=== PATIENT | female | born 1960 | race Caucasian/White ===

== ENCOUNTER 2020-07-06 07:39 | Outpatient (REF) | payer BC, SELFPAY ==
[2020-07-06 08:40] LABS: MANUAL DIFF FLAG NO
[2020-07-06 08:46] LABS: Glucose Urine UA NEG (NEG); Leukocyte Esterase Urine 1+ (NEG); Nitrite Urine NEG (NEG); PH 5.5 (5.0-8.0); Specific Gravity - Urine >= 1.030 (1.005-1.025); UACC Culture Trigger YES; Urine Blood 1+ (NEG); Urine Ketones NEG (NEG); Urine Protein NEG (NEG-TRACE)
[2020-07-06 08:48] LABS: Basophils Absolute Auto 0.1 X10*3/uL (0.0-0.2); Eosinophils Absolute Auto 0.2 X10*3/uL (0.0-0.4); Hematocrit 39.7 % (37-47); Hemoglobin 12.3 g/dl (12.0-16.0); Imm Gran Abs Auto 0.03 X10*3/uL (0.00-0.03); Imm Gran Pct Auto 0.3 % (0.0-0.4); Lymphocytes Absolute Auto 2.7 X10*3/uL (1.2-4.9); Mean Corpuscular Hemoglobin 25.3 pg (27.0-33.0); Mean Corpuscular Volume 81.7 fL (80-98); Mean Platelet Volume 10.1 fL (9.4-12.3); Monocytes Absolute Auto 0.6 X10*3/uL (0.1-1.2); Monocytes Percent Auto 6.8 % (2-11); Neutrophils Absolute Auto 5.1 X10*3/uL (2.0-8.3); Neutrophils Percent Auto 58.9 % (45-73); Platelet Count 430 X10*3/uL (160-400); Red Blood Count 4.86 X10*6/uL (4.20-5.50); Red Cell Distribution Width 16.9 % (11.0-16.0); White Blood Count 8.7 X10*3/uL (4.8-10.8)
[2020-07-06 08:50] LABS: Appearance Urine CLOUDY; Color Urine YELLOW
[2020-07-06 08:55] LABS: Calcium Oxalate Crystals Urine 3+ /LPF; Mucus Urine 1+ /LPF; Squamous Epithelial Cell Urine 1+ /LPF; UACC CULT YES
[2020-07-06 09:18] LABS: Alanine Aminotransferase 15 U/L (0-31); Albumin Level 4.4 g/dL (3.5-5.0); Alkaline Phosphatase 96 U/L (39-117); Anion Gap 16 (12-20); Aspartate Amino Transferase 15 U/L (5-31); Bilirubin Total 0.5 mg/dL (0.0-1.0); Blood Urea Nitrogen 18 mg/dL (9-16); Calcium 9.8 mg/dL (8.4-10.2); Carbon Dioxide 23 mmol/L (22-29); Chloride 108 mmol/L (96-108); Cholesterol 189 mg/dL; Estimated Glomerular Filt Rate > 60; Glucose Fasting 134 mg/dL (60-99); HDL Cholesterol 65 mg/dL; LDL Cholesterol Calculated 103 mg/dl; Potassium 4.8 mmol/L (3.3-5.1); Sodium 142 mmol/L (135-145); Total Protein 7.5 g/dL (6.5-8.0); Triglycerides 107 mg/dL
[2020-07-06 09:36] LABS: Estimated Average Glucose 120 mg/dL; Hemoglobin A1c % 5.8 %
[2020-07-06 09:43] LABS: Free T4 (Free Thyroxine) 1.02 ng/dL (0.71-1.85); Thyroid Stimulating Hormone 0.82 uIU/mL (0.32-4.0); Vitamin D 25-OH Total 16.7 ng/mL (>30)
== END 2020-07-06 07:40 | disposition home or self-care (01) ==
LOC: HO.LAB 07:39
PROVIDERS: PCP Internal Medicine; Visit Provider Internal Medicine
DX: I10 Essential (primary) hypertension (principal); E78.00 Pure hypercholesterolemia, unspecified; R73.01 Impaired fasting glucose; E03.9 Hypothyroidism, unspecified; E66.9 Obesity, unspecified; E55.9 Vitamin D deficiency, unspecified
CPT/HCPCS: 36415; 80053; 80061; 81001; 82306; 83036; 84439; 84443; 85025; 87086

== ENCOUNTER 2020-08-24 14:44 | Outpatient (REF) | payer BC, SELFPAY ==
--- NOTE | ~2020-08-24 | XR_ITS ---
EXAMINATION: XR CERVICAL SPINE CLINICAL INFORMATION: Neck pain COMPARISON: Previous x-ray February 2019 TECHNIQUE: 3 views of the cervical spine were obtained. FINDINGS: There is mild anterior subluxation of C3 with respect to C4 measuring 3 mm. This is unchanged. Bone alignment is otherwise normal. No fracture or dislocation is seen. There is evidence of degenerative spondylosis from C3-C4 to C6-C7. There is disc space narrowing from C4-C5 to C6-C7. There is right-sided facet arthritis at C3-C4. Prevertebral soft tissues are normal. XR/XR cervical spine 3V IMPRESSION: Degenerative changes.
== END 2020-08-24 14:45 | disposition home or self-care (01) ==
LOC: HO.XRAY 14:44
PROVIDERS: PCP Internal Medicine; Visit Provider Nurse Practitioner Family
DX: M54.2 Cervicalgia (principal)
CPT/HCPCS: 72040

== ENCOUNTER → 2020-09-11 08:23 | Outpatient (BNVA) | payer BC, SELFPAY | PROVIDERS: PCP Internal Medicine; Visit Provider Nurse Practitioner Family ==

== ENCOUNTER 2020-11-18 10:50 | Outpatient (REF) | payer BC, SELFPAY ==
[2020-11-18 13:51] LABS: MANUAL DIFF FLAG NO
[2020-11-18 13:57] LABS: Basophils Absolute Auto 0.1 X10*3/uL (0.0-0.2); Basophils Percent Auto 0.8 % (0-2); Eosinophils Absolute Auto 0.1 X10*3/uL (0.0-0.4); Eosinophils Percent Auto 1.5 % (0-4); Hematocrit 39.4 % (37-47); Hemoglobin 11.8 g/dl (12.0-16.0); Imm Gran Abs Auto 0.03 X10*3/uL (0.00-0.03); Imm Gran Pct Auto 0.3 % (0.0-0.4); Lymphocytes Absolute Auto 1.2 X10*3/uL (1.2-4.9); Lymphocytes Percent Auto 13.4 % (20-40); Mean Corpuscular HGB Conc 29.9 g/dl (31.0-35.0); Mean Corpuscular Hemoglobin 26.2 pg (27.0-33.0); Mean Corpuscular Volume 87.4 fL (80-98); Monocytes Absolute Auto 0.8 X10*3/uL (0.1-1.2); Monocytes Percent Auto 8.4 % (2-11); Neutrophils Percent Auto 75.6 % (45-73); Platelet Count 648 X10*3/uL (160-400); Red Blood Count 4.51 X10*6/uL (4.20-5.50); Red Cell Distribution Width 17.2 % (11.0-16.0); White Blood Count 9.2 X10*3/uL (4.8-10.8)
[2020-11-18 14:30] LABS: Thyroid Stimulating Hormone 1.48 uIU/mL (0.32-4.0)
[2020-11-21 18:21] LABS: Transglutaminase IgA 3 U/mL
[2020-11-24 11:01] LABS: Endomysial IgA Antibody Negative (Negative)
== END 2020-11-18 10:51 | disposition home or self-care (01) ==
LOC: HO.LAB 10:50
PROVIDERS: PCP Internal Medicine; Visit Provider Physician Assistant
DX: Z01.818 Encounter for other preprocedural examination (principal); K90.0 Celiac disease; R19.7 Diarrhea, unspecified; R74.01 Elevation of levels of liver transaminase levels
CPT/HCPCS: 36415; 83516; 84443; 85025; 86255; 86256

== ENCOUNTER → 2020-12-24 15:23 | Outpatient (BNVA) | payer BC, SELFPAY | PROVIDERS: PCP Internal Medicine; Visit Provider Nurse Practitioner Family ==

== ENCOUNTER 2021-01-06 13:34 | Outpatient (REF) | payer BC, SELFPAY ==
--- NOTE | ~2021-01-06 | MR_ITS ---
MR CERVICAL SPINE WITHOUT CONTRAST CLINICAL INFORMATION: Cervical disc degeneration. COMPARISON: Cervical spine radiographs 02/12/2019 and cervical spine MRI 03/30/2012 TECHNIQUE: MRI of the cervical spine was obtained using routine sequences without contrast. FINDINGS: Straightening of the cervical lordosis. Mild anterior subluxation of C3 on C4. Mild retrosubluxation of C4 on C5, C5 on C6, and C6 on C7. Progressive severe disc volume loss at C4-C5, C5-C6, and C6-C7. Progressive severe disc volume loss at T1-T2. There is no bone marrow edema. There are no acute fractures. Cervical arterial flow voids are maintained. There are no significant extraspinal soft tissue findings. There is no cord signal abnormality. C2-C3: Uncovertebral joint spurring and facet arthropathy result in similar mild bilateral foraminal encroachment. No central canal stenosis. C3-C4: Mild anterior subluxation. Disc osteophyte mildly narrows the central canal. Advanced uncovertebral joint hypertrophy and hypertrophic facet arthropathy result in worsening moderate bilateral foraminal stenosis. C4-C5: Disc osteophyte and ligamentum flavum thickening result in progressive mild to moderate central canal stenosis. Advanced uncovertebral joint hypertrophy and hypertrophic facet arthropathy result in similar severe bilateral foraminal stenosis. C5-C6: Disc osteophyte and ligamentum flavum thickening result in worsening mild to moderate central canal stenosis. Uncovertebral joint hypertrophy and advanced facet arthropathy result in similar severe bilateral foraminal stenosis. C6-C7: Disc osteophyte mildly narrows the central canal. Advanced uncovertebral joint hypertrophy and hypertrophic facet arthropathy result in severe bilateral foraminal stenosis. C7-T1: Uncovertebral joint spurring and facet arthropathy result in progressive moderate to severe left-sided foraminal stenosis. MR/MR cervical spine wo con IMPRESSION: Spondylitic changes result in worsening mild to moderate central canal stenosis at the C4-C5 and C5-C6 levels. Spondylitic changes result in similar severe bilateral foraminal stenosis at C4-C5, C5-C6, and C6-C7 and progressive moderate to severe left-sided foraminal stenosis at C7-T1 and moderate bilateral foraminal stenosis at C3-C4.
== END 2021-01-06 13:35 | disposition home or self-care (01) ==
LOC: HO.MRI 13:34
PROVIDERS: PCP Internal Medicine; Visit Provider Nurse Practitioner Family
DX: M50.30 Other cervical disc degeneration, unspecified cervical region (principal)
CPT/HCPCS: 72141

== ENCOUNTER 2021-01-12 06:57 | Day surgery (SDC) | payer BC, SELFPAY ==
[2021-01-06 16:36] VITALS: BMI 27.4
[2021-01-12] MEDS: Lactated Ringers 1,000 ML 50 ML IVCONT (07:15)
[2021-01-12] MEDS: Ampicillin Sodium 2 GM in 0.9 % Sodium Chloride 100 ML IV (07:20)
--- NOTE | 2021-01-12 07:27 | HO.ANESPROP2 ---
FORMERLY [facility], 1928–1983 Active Problems Active Problems: All Active Problems (Updated 01/06/21 @ 16:34 by Mercedes Mcdowell, RN) Cervicalgia (Acute) Spondylosis of lumbar region without myelopathy or radiculopathy (Acute) Celiac disease (Acute) Encounter for screening colonoscopy (Acute) Degenerative disc disease, cervical (Acute) Overweight (BMI 25.0-29.9) (Acute) Reactive depression (Acute) Anxiety (Acute) Primary osteoarthritis of right knee (Acute) Insomnia (Acute) Migraine (Acute) Dystonia (Acute) Lumbar degenerative disc disease (Acute) Impaired fasting glucose (Acute) Colon cancer screening (Acute) Cervical spondylosis (Acute) Vitamin D deficiency (Acute) Acquired hypothyroidism (Acute) Pure hypercholesterolemia (Acute) Benign essential hypertension (Acute) Past Medical History Medical History Acquired hypothyroidism Anxiety Arthritis Benign essential hypertension Celiac disease Cervical spondylosis Colon cancer screening Dystonia Hypothyroidism Impaired fasting glucose Insomnia Lumbar degenerative disc disease Migraine Overweight (BMI 25.0-29.9) PONV (postoperative nausea and vomiting) Primary osteoarthritis of right knee Pure hypercholesterolemia Reactive depression Vitamin D deficiency Functional capacity: independent ambulation Patient : No Family History Family History Father Cancer Mother CRD (chronic renal disease) CVD (cardiovascular disease) Myocardial infarction Sister Sarcoma Sister Melanoma Surgical History Surgical History H/O colonoscopy H/O esophagogastroduodenoscopy History of arthroplasty of left knee History of hand surgery History of lumbar surgery History of Problems with Anesthesia: No Social History Social History Alcohol intake: current Alcohol intake frequency: does not drink Patient Tobacco Use Status: Never used Tobacco Are you DNR?: No Advance Directives: No Advance Directives Information Provided: No Advance Directives on File: No Current occupational status: employed Meds Allergies Allergy/AdvReac Type Severity Reaction Status Date / Time No Known Allergies Allergy Verified 11/18/20 10:55 [No Known Allergies*] Active Medications: Current Medications Generic Name Dose Route Start Last Admin Trade Name Freq PRN Reason Stop Dose Admin Ampicillin Sodium 2 gm/ Sodium 100 mls @ 100 mls/hr 08/31/21 08:00 01/12/21 07:20 Chloride IV 01/12/21 08:59 100 mls/hr ONCE ONE Administration Home Medications Medication Instructions Recorded Confirmed Last Taken Type diclofenac sodium 75 mg 75 mg PO BID PRN 08/07/20 01/06/21 Unknown History tablet,delayed release gabapentin 300 mg capsule 600 mg PO BEDTIME cap 08/07/20 01/06/21 Unknown History pravastatin 40 mg tablet 40 mg PO DAILY 08/07/20 01/06/21 Unknown History topiramate 25 mg tablet 25 mg PO BEDTIME 08/07/20 01/06/21 Unknown History Exam Exam Date and Time: January 12, 2021 0727 Height,Weight and Vital Signs: Height 5 ft 4 in Weight 72.575 kg Airway Mallampati Class: II TM Dist: >3cm Neck ROM: Full Heart: RRR Lungs: CTA Assessment and Plan Final Anesthetic Review History of Problems with Anesthesia: No
[2021-01-12 07:29] VITALS: BP 137/80; PULSE 83; RESP 16; TEMP 36.3; O2SAT 98
--- NOTE | 2021-01-12 07:42 | MHC.SHP ---
Pre-Procedural Eval Section A Date of Service: 01/12/21 The patient is an INPATIENT: No The History & Physical has been completed within 30 days and I have reviewed it.: No Section B Chief Complaint: Screening, Celiac Disease Details of Present Illness: Colon cancer screening, celiac disease Relevant Family History (Specify if Yes): No Relevant Social History: None Present Medications: see Short Stay Collaborative assessment Medical History: Significant History (Acquired hypothyroidism Anxiety Benign essential hypertension Celiac disease Cervical spondylosis Colon cancer screening Dystonia Impaired fasting glucose Insomnia Lumbar degenerative disc disease Migraine Overweight (BMI 25.0-29.9) Primary osteoarthritis of right knee Pure hypercholesterolemia Reac) History of Previous Operations: Relevant previous surgery/procedure and date(s) (H/O colonoscopy H/O esophagogastroduodenoscopy History of arthroplasty of left knee History of hand surgery History of lumbar surgery) Allergies: Allergies Allergy/AdvReac Type Severity Reaction Status Date / Time No Known Allergies Allergy Verified 11/18/20 10:55 [No Known Allergies*] Review of Systems Sugical H&P ROS: Negative: Constitution, Cardiovascular and Respiratory and Yes, Specify: Gastrointestinal (bloating, intermittent diarrhea) Exam Surgical H&P Exam: Normal: Heart, Normal: Lungs, Normal: Extremities and Normal: Abdomen Plan Diagnosis/Plan: Unchanged I have reviewed the history and physical and performed a pertinent physical examination on my patient. No changes have occurred unless specified.
--- NOTE | 2021-01-12 07:44 | P.BOP_ITS ---
Brief Operative Note Date of Service: 01/12/21 Pre-op diagnosis: Colon cancer screening, Celiac disease Post-op diagnosis: other (Hiatal hernia, esophagitis, gastritis celiac disease, colon polyp, diverticulosis, hemorrhoids) Procedure: FLEXIBLE TRANSORAL UPPER GASTROINTESTINAL ENDOSCOPY WITH BIOPSIES AND COLONOSCOPY TILL CECUM WITH BIOPSIES UPPER ENDOSCOPY Consent: Indications for the procedure and potential complications of bleeding, perforation, reaction to medications and missed diagnosis were discussed with the patient and informed consent was obtained. Instrument: Olympus GIF H 190 mid size upper endoscope Monitoring: Vital signs and clinical assessment, continuous EKG monitoring, Pulse oximetry, Carbon Dioxide monitoring and blood pressure monitoring were done throughout the procedure. Procedure: The patient was placed in the left lateral decubitis position and pre-procedure medications were administered and a bite block was placed. The endoscope was inserted into the mouth and advanced under direct vision to the third part of duodenum. A careful inspection was made as the upper endoscope was withdrawn including a retroflexed examination of the proximal stomach; Findings and interventions are described below. Findings: Larynx: Normal Esophagus: GE junction at 34 cms, small hiatal hernia 34 to 36 cms. Focal esophagitis with 1 cms chronic appearing erosion at GE junction.. Stomach: Mild gastric erythema. Biopsies were obtained. Grade 3 flap valve on retroflexed examination of the cardia. Duodenum: Normal bulb and descending duodenum. Biopsies were obtained from 3rd part of duodenum to FU on celiac sprue. Intervention: Biopsies as noted above COLONOSCOPY PROCEDURE NOTE Consent: Indications for the procedure and potential complications of bleeding, perforation, reaction to medications and missed diagnosis were discussed with the patient and informed consent was obtained. Instrument: Olympus PCF H 190 L variable stiffness pediatric colonoscope Monitoring: Vital signs and clinical assessment, intermittent blood pressure monitoring, continuous EKG monitoring, Pulse oximetry and Carbon Dioxide monitoring were done throughout the procedure. Colon withdrawl time was 17 minutes. Procedure: The patient was placed in the left lateral decubitis position and pre-procedure medications were administered. After a digital rectal examination of the ano-rectum, the video colonoscope was inserted into the rectum and advanced through the colon to the cecum. The colonoscope was slowly withdrawn in a retrograde panoramic fashion and the colon mucosa was carefully examined including a retroflexed view of the rectum. Findings and interventions are described below. Procedure Difficulty: Colon was long and tortuous and there was some loop formation - no manuvers were required Findings: Terminal Ileum: Not evaluated Cecum: Normal Ascending Colon: Normal Transverse Colon: Normal Descending Colon: Normal Sigmoid Colon: A 6-7 mm diminutive appearing polyp at 20 cms removed with a cold bx. Moderate diverticulosis Rectum: Normal Ano-rectum: Moderate internal hemorrhoids Colon preparation: Good after some irrigation Impression and Post Procedure Diagnosis: Endoscopy Findings: ESOPHAGUS: Small hiatal hernia. Focal esophagitis with 1 cms chronic appearing erosion at GE junction.. STOMACH: Antral gastritis DUODENUM: Normal - biopsied to follow up on celiac sprue. Colonoscopy Findings: One small polyp removed. Random biopsies were obtained from the colon to check for microscopic colitis. Moderate diverticulosis seen in the sigmoid colon Moderate hemorrhoids on retroflexed exam. Plan: Await pathology results Patient has an appointment on 02/04/21 in the GI Clinic with TRISTIN Burgos. Repeat Colonoscopy interval based on path results - in 5 years if polyp is adenomatous and 10 years if polyps are hyperplastic. (adult colonoscopy for future colonoscopies) Above findings were reviewed with the patient and GERD, colon polyps and diverticulosis handouts were given in the discharge area Surgeon: Romie Trujillo MD Anesthesia: MAC (Dr Whalen) Was an Carburetor Expert used for this Procedure?: Yes Carburetor Expert: Trevon Xavier Estimated blood loss (mL): 0 Pathology: other ( A- SMALL BOWEL BXS. F/U CELIAC DISEASE. B- GASTRIC ANTRUM BXS. R/O H. PYLORI C- RANDOM COLON BXS R/O MICROSCOPIC COLITIS D- SIGMOID POLYP) Condition: stable Disposition: PACU
--- NOTE | 2021-01-12 08:06 | W.PM.OPN ---
Operative Note Operative Note Date of Service: 01/12/21 Narrative: Brief Operative Note Date of Service:?01/12/21 Pre-op diagnosis:?Colon cancer screening, Celiac disease Post-op diagnosis:?other (Hiatal hernia, esophagitis, gastritis celiac disease, colon polyp, diverticulosis, hemorrhoids) Procedure:? FLEXIBLE TRANSORAL UPPER GASTROINTESTINAL ENDOSCOPY WITH BIOPSIES AND COLONOSCOPY TILL CECUM WITH BIOPSIES UPPER ENDOSCOPY Consent:?Indications for the procedure and potential complications of bleeding, perforation, reaction to medications and missed diagnosis were discussed with the patient and informed consent was obtained. Instrument:?Olympus GIF H 190 mid size upper endoscope Monitoring: Vital signs and clinical assessment, continuous EKG monitoring, Pulse oximetry, Carbon Dioxide monitoring and blood pressure monitoring were done throughout the procedure. Procedure:?The patient was placed in the left lateral decubitis position and pre-procedure medications were administered and a bite block was placed. The endoscope was inserted into the mouth and advanced under direct vision to the third part of duodenum. A careful inspection was made as the upper endoscope was withdrawn including a retroflexed examination of the proximal stomach; Findings and interventions are described below. Findings: Larynx:??Normal Esophagus:?GE junction at 34 cms, small hiatal hernia 34 to 36 cms.? Focal esophagitis with 1 cms chronic appearing erosion at GE junction.. Stomach:?Mild gastric erythema. Biopsies were obtained. Grade 3 flap valve on retroflexed examination of the cardia. Duodenum:?Normal bulb and descending duodenum.? Biopsies were obtained from 3rd part of duodenum to FU on celiac sprue. Intervention:?Biopsies as noted above COLONOSCOPY PROCEDURE NOTE Consent:?Indications for the procedure and potential complications of bleeding, perforation, reaction to medications and missed diagnosis were discussed with the patient and informed consent was obtained. Instrument:?Olympus PCF H 190 L variable stiffness pediatric colonoscope Monitoring:?Vital signs and clinical assessment, intermittent blood pressure monitoring, continuous EKG monitoring, Pulse oximetry and Carbon Dioxide monitoring were done throughout the procedure. Colon withdrawl time was 17 minutes. Procedure:?The patient was placed in the left lateral decubitis position and pre-procedure medications were administered. After a digital rectal examination of the ano-rectum, the video colonoscope was inserted into the rectum and advanced through the colon to the cecum. The colonoscope was slowly withdrawn in a retrograde panoramic fashion and the colon mucosa was carefully examined including a retroflexed view of the rectum. Findings and interventions are described below. Procedure Difficulty:??Colon was long and tortuous and there was some loop formation - no manuvers were required Findings: Terminal Ileum: Not evaluated Cecum:? Normal Ascending Colon:??Normal Transverse Colon:??Normal Descending Colon:? Normal Sigmoid Colon:??A 6-7 mm diminutive appearing polyp at 20 cms removed with a cold bx. Moderate diverticulosis Rectum:??Normal Ano-rectum:??Moderate internal hemorrhoids Colon preparation:? Good after some irrigation Impression and Post Procedure Diagnosis: Endoscopy Findings: ESOPHAGUS:? Small hiatal hernia.? Focal esophagitis with 1 cms chronic appearing erosion at GE junction.. STOMACH: Antral gastritis DUODENUM: Normal - biopsied to follow up on celiac sprue. Colonoscopy Findings: One small polyp removed. Random biopsies were obtained from the colon to check for microscopic colitis. Moderate diverticulosis seen in the sigmoid colon Moderate hemorrhoids on retroflexed exam. Plan: Await pathology results Patient has an appointment on 02/04/21 in the GI Clinic with TRISTIN Burgos. Repeat Colonoscopy interval based on path results - in 5 years if polyp is adenomatous and 10 years if polyps are hyperplastic. (adult colonoscopy for future colonoscopies) Above findings were reviewed with the patient and GERD, colon polyps and diverticulosis handouts were given in the discharge area Surgeon:?Romie Trujillo MD Anesthesia:?MAC (Dr Whalen) Was an Calculus Tutor used for this Procedure?:?Yes Calculus Tutor:?Trevon Xavier Estimated blood loss (mL):?0 Pathology:?other ( A-? SMALL BOWEL BXS. ? F/U CELIAC DISEASE.? B- GASTRIC ANTRUM BXS.? R/O H. PYLORI? C- RANDOM COLON BXS ? R/O MICROSCOPIC COLITIS? D- SIGMOID POLYP) Condition:?stable Disposition:?PACU
[2021-01-12 09:02] VITALS: BP 130/105; PULSE 79; RESP 16; TEMP 36.1; O2SAT 98
[2021-01-12 09:17] VITALS: BP 131/79; PULSE 73; RESP 16; O2SAT 99
[2021-01-12 09:32] VITALS: BP 125/69; PULSE 73; RESP 16; TEMP 36.4; O2SAT 98
--- NOTE | 2021-01-12 13:21 | HO.POSTANES ---
Post Anesthesia Evaluation Post Anesthesia Evaluation Vital Signs: Vital Signs Temp Pulse Resp BP Pulse Ox 01/12/21 09:32 97.5 F 73 16 125/69 98 01/12/21 09:17 73 16 131/79 99 01/12/21 09:02 97.0 F 79 16 130/105 H 98 01/12/21 07:29 97.4 F 83 16 137/80 98 Anesthesia: Monitored Mental Status: Awake Pain Control: Satisfactory Nausea/Vomiting: None Hydration: Adequate Anesthesia-Related Issues: No Anes. Related Issues
== END 2021-01-12 09:50 | disposition home or self-care (01) ==
PROVIDERS: PCP Internal Medicine; Visit Provider Internal Medicine Gastroenterology
PROC: (CPT 45380; principal; 2021-01-12 08:10)
DX: Z12.11 Encounter for screening for malignant neoplasm of colon (principal); K63.5 Polyp of colon; K57.30 Diverticulosis of large intestine without perforation or abscess without bleeding; K64.8 Other hemorrhoids; K56.2 Volvulus; K20.90 Esophagitis, unspecified without bleeding; K29.70 Gastritis, unspecified, without bleeding; K44.9 Diaphragmatic hernia without obstruction or gangrene; K90.0 Celiac disease; I10 Essential (primary) hypertension
CPT/HCPCS: 45380; 43239; 88305; 88342; J0290

== ENCOUNTER 2021-01-25 07:31 | Outpatient (REF) | payer BC, SELFPAY ==
[2021-01-25 09:11] LABS: Alanine Aminotransferase 13 U/L (0-31); Albumin Level 4.1 g/dL (3.5-5.0); Alkaline Phosphatase 82 U/L (39-117); Anion Gap 14 (12-20); Aspartate Amino Transferase 13 U/L (5-31); Bilirubin Total 0.3 mg/dL (0.0-1.0); Blood Urea Nitrogen 13 mg/dL (9-16); Calcium 9.9 mg/dL (8.4-10.2); Carbon Dioxide 21 mmol/L (22-29); Chloride 112 mmol/L (96-108); Cholesterol 200 mg/dL; Estimated Glomerular Filt Rate > 60; Glucose Fasting 121 mg/dL (60-99); HDL Cholesterol 59 mg/dL; LDL Cholesterol Calculated 124 mg/dl; Potassium 4.7 mmol/L (3.3-5.1); Sodium 142 mmol/L (135-145); Total Protein 7.2 g/dL (6.5-8.0); Triglycerides 87 mg/dL
[2021-01-25 09:19] LABS: Free T4 (Free Thyroxine) 1.03 ng/dL (0.71-1.85); Thyroid Stimulating Hormone 0.18 uIU/mL (0.32-4.0); Vitamin D 25-OH Total 20.6 ng/mL (>30)
== END 2021-01-25 07:32 | disposition home or self-care (01) ==
LOC: HO.LAB 07:31
PROVIDERS: PCP Internal Medicine; Visit Provider Internal Medicine
DX: E55.9 Vitamin D deficiency, unspecified (principal); E03.9 Hypothyroidism, unspecified; E66.3 Overweight; E78.00 Pure hypercholesterolemia, unspecified; R73.01 Impaired fasting glucose; I10 Essential (primary) hypertension
CPT/HCPCS: 36415; 80053; 80061; 82306; 84439; 84443

== ENCOUNTER → 2021-02-04 08:44 | Outpatient (BNVA) | payer BC, SELFPAY | PROVIDERS: PCP Internal Medicine; Referring Provider Internal Medicine; Visit Provider Physician Assistant ==

== ENCOUNTER 2021-02-05 09:25 | Outpatient (REF) | payer BC, SELFPAY ==
[2021-02-05 10:01] LABS: MANUAL DIFF FLAG NO
[2021-02-05 10:10] LABS: Basophils Absolute Auto 0.1 X10*3/uL (0.0-0.2); Basophils Percent Auto 1.1 % (0-2); Eosinophils Absolute Auto 0.2 X10*3/uL (0.0-0.4); Eosinophils Percent Auto 2.6 % (0-4); Hematocrit 39.1 % (37-47); Imm Gran Abs Auto 0.02 X10*3/uL (0.00-0.03); Imm Gran Pct Auto 0.3 % (0.0-0.4); Lymphocytes Absolute Auto 1.8 X10*3/uL (1.2-4.9); Mean Corpuscular HGB Conc 30.7 g/dl (31.0-35.0); Mean Corpuscular Hemoglobin 25.4 pg (27.0-33.0); Mean Corpuscular Volume 82.7 fL (80-98); Mean Platelet Volume 9.8 fL (9.4-12.3); Monocytes Absolute Auto 0.6 X10*3/uL (0.1-1.2); Monocytes Percent Auto 9.3 % (2-11); Neutrophils Absolute Auto 3.9 X10*3/uL (2.0-8.3); Neutrophils Percent Auto 59.7 % (45-73); Platelet Count 446 X10*3/uL (160-400); Red Blood Count 4.73 X10*6/uL (4.20-5.50); Red Cell Distribution Width 15.9 % (11.0-16.0); White Blood Count 6.6 X10*3/uL (4.8-10.8)
== END 2021-02-05 09:26 | disposition home or self-care (01) ==
LOC: HO.LAB 09:25
PROVIDERS: PCP Internal Medicine; Visit Provider Internal Medicine
DX: D47.3 Essential (hemorrhagic) thrombocythemia (principal)
CPT/HCPCS: 36415; 85025

== ENCOUNTER 2021-02-24 06:19 | Outpatient (REF) | payer BC, SELFPAY ==
--- NOTE | ~2021-02-24 | FL_ITS ---
EXAMINATION: XR FLUOROSCOPY WITH IMAGES CLINICAL INFORMATION: Neck pain. COMPARISON: MRI of the cervical spine dated 01/06/2021 and cervical spine radiographs dated 08/24/2020. TECHNIQUE: Fluoroscopy performed by Dr. Louis. Fluoroscopy time: 1.9 minutes DAP: 1.79 Gycm2 Images: 3 FL/FL guidance in treatment room FINDINGS/IMPRESSION: Fluoroscopy was performed for procedural guidance. Please refer to the procedure report for more detailed findings.
== END 2021-02-24 06:20 | disposition home or self-care (01) ==
LOC: HO.RADIR 06:19
PROVIDERS: Visit Provider Internal Medicine
DX: M47.812 Spondylosis without myelopathy or radiculopathy, cervical region (principal); I10 Essential (primary) hypertension; E03.9 Hypothyroidism, unspecified; E78.00 Pure hypercholesterolemia, unspecified; E55.9 Vitamin D deficiency, unspecified; Z79.899 Other long term (current) drug therapy
CPT/HCPCS: 64490; 64491; Q9967

== ENCOUNTER → 2021-03-05 09:24 | Outpatient (BNVA) | payer BC, SELFPAY | PROVIDERS: PCP Internal Medicine; Visit Provider Internal Medicine ==

== ENCOUNTER 2021-03-31 06:36 | Outpatient (REF) | payer BC, SELFPAY ==
--- NOTE | ~2021-03-31 | FL_ITS ---
EXAMINATION: XR FLUOROSCOPY WITH IMAGES CLINICAL INFORMATION: Neck pain COMPARISON: Previous exam February 2021 TECHNIQUE: Fluoroscopy performed by Dr. Orosco Fluoroscopy time: 0.7 minutes DAP: 1.5 Gycm2 Images: 2 FINDINGS: Images demonstrate needle placement adjacent to the right lateral cervical spine. FL/FL guidance in treatment room IMPRESSION: Fluoroscopy guidance for pain management procedure.
== END 2021-03-31 06:37 | disposition home or self-care (01) ==
LOC: HO.RADIR 06:36
PROVIDERS: Visit Provider Internal Medicine
DX: M47.812 Spondylosis without myelopathy or radiculopathy, cervical region (principal); Z79.899 Other long term (current) drug therapy
CPT/HCPCS: 64633; 64634

== ENCOUNTER → 2021-04-28 09:53 | Outpatient (BNVA) | payer BC, SELFPAY | PROVIDERS: PCP Internal Medicine; Visit Provider Nurse Practitioner Family ==

== ENCOUNTER 2021-05-12 07:59 | Outpatient (REF) | payer BC, SELFPAY ==
--- NOTE | ~2021-05-12 | FL_ITS ---
EXAMINATION: XR FLUOROSCOPY WITH IMAGES CLINICAL INFORMATION: M47.812 - Spondylosis without myelopathy or radiculopathy COMPARISON: Fluoroscopic spot views 03/31/2021, 02/24/2021 TECHNIQUE: Fluoroscopy performed by Dr. Ant Louis. Fluoroscopy time: 0.6 minutes DAP: 0.502 Gycm2 Images: 2 FINDINGS: There are 3 needles/electrodes overlying the left lateral masses cervical spine approximately C3, C4, and C5. Bony structures appear similar to prior studies. FL/FL guidance in treatment room IMPRESSION: Fluoroscopy for pain management procedure.
== END 2021-05-12 08:00 | disposition home or self-care (01) ==
LOC: HO.RADIR 07:59
PROVIDERS: Visit Provider Internal Medicine
DX: M47.812 Spondylosis without myelopathy or radiculopathy, cervical region (principal)
CPT/HCPCS: 64633; 64634

== ENCOUNTER → 2021-05-18 14:25 | Outpatient (BNVA) | payer BC, SELFPAY | PROVIDERS: PCP Internal Medicine; Visit Provider Nurse Practitioner Family ==

== ENCOUNTER → 2021-06-09 08:17 | Outpatient (BNVA) | payer BC, SELFPAY | PROVIDERS: PCP Internal Medicine; Visit Provider Nurse Practitioner Family ==

== ENCOUNTER 2021-06-15 07:08 | Outpatient (REF) | payer BC, SELFPAY ==
--- NOTE | ~2021-06-15 | XR_ITS ---
EXAMINATION: XR SHOULDER, RIGHT CLINICAL INFORMATION: Pain. COMPARISON: None. TECHNIQUE: AP external rotation, Grashey, scapular Y, and axillary views of the right shoulder. FINDINGS: The glenohumeral and AC joint space is maintained normal. No visible acute fracture, dislocation or lytic process seen. The soft tissues are normal. XR/XR shoulder RT min 2V IMPRESSION: Unremarkable right shoulder exam.
== END 2021-06-15 07:09 | disposition home or self-care (01) ==
LOC: HO.XRAY 07:08
PROVIDERS: PCP Internal Medicine; Visit Provider Nurse Practitioner Family
DX: M25.511 Pain in right shoulder (principal)
CPT/HCPCS: 73030

== ENCOUNTER 2021-07-30 07:35 | Outpatient (REF) | payer BC, SELFPAY ==
[2021-07-30 07:49] LABS: MANUAL DIFF FLAG NO
[2021-07-30 08:17] LABS: Basophils Absolute Auto 0.1 X10*3/uL (0.0-0.2); Basophils Percent Auto 1.1 % (0-2); Eosinophils Absolute Auto 0.2 X10*3/uL (0.0-0.4); Eosinophils Percent Auto 2.7 % (0-4); Hematocrit 35.5 % (37.0-47.0); Imm Gran Abs Auto 0.02 X10*3/uL (0.00-0.03); Imm Gran Pct Auto 0.3 % (0.0-0.4); Lymphocytes Absolute Auto 2.4 X10*3/uL (1.2-4.9); Lymphocytes Percent Auto 38.3 % (20-40); Mean Corpuscular Hemoglobin 26.4 pg (27.0-33.0); Mean Corpuscular Volume 85.1 fL (80.0-98.0); Monocytes Absolute Auto 0.5 X10*3/uL (0.1-1.2); Monocytes Percent Auto 7.9 % (2-11); Neutrophils Absolute Auto 3.1 x10*3/uL (2.0-8.3); Neutrophils Percent Auto 49.7 % (45-73); Platelet Count 406 X10*3/uL (160-400); Red Blood Count 4.17 X10*6/uL (4.20-5.50); Red Cell Distribution Width 15.5 % (11.0-16.0); White Blood Count 6.3 X10*3/uL (4.8-10.8)
[2021-07-30 08:26] LABS: Estimated Average Glucose 114 mg/dL; Hemoglobin A1C 110.5996 umol/L; Hemoglobin A1c % 5.6 %
[2021-07-30 08:40] LABS: Appearance Urine HAZY; Color Urine YELLOW; Glucose Urine UA NEG (NEG); Leukocyte Esterase Urine 3+ (NEG); Nitrite Urine NEG (NEG); UACC Culture Trigger YES; Urine Blood 1+ (NEG); Urine Ketones NEG (NEG); Urine Protein NEG (NEG-TRACE)
[2021-07-30 08:45] LABS: Alanine Aminotransferase 15 U/L (0-31); Albumin Level 4.1 g/dL (3.5-5.0); Alkaline Phosphatase 78 U/L (39-117); Anion Gap 16 (12-20); Aspartate Amino Transferase 14 U/L (5-31); Bilirubin Total 0.5 mg/dL (0.0-1.0); Blood Urea Nitrogen 17 mg/dL (9-16); Calcium 9.7 mg/dL (8.4-10.2); Carbon Dioxide 21 mmol/L (22-29); Chloride 110 mmol/L (96-108); Cholesterol 198 mg/dL; Estimated Glomerular Filt Rate > 60; Glucose Fasting 109 mg/dL (60-99); HDL Cholesterol 67 mg/dL; LDL Cholesterol Calculated 118 mg/dl; Potassium 4.5 mmol/L (3.3-5.1); Sodium 142 mmol/L (135-145); Triglycerides 69 mg/dL
[2021-07-30 09:04] LABS: Bacteria Urine 2+ /LPF; RBC Urine 0-2 /HPF (0); Squamous Epithelial Cell Urine 1+ /LPF
[2021-07-30 09:05] LABS: Amorphous Sediment Urine 1+ /LPF
[2021-07-30 09:06] LABS: Thyroid Stimulating Hormone 0.48 uIU/mL (0.32-4.0); Vitamin D 25-OH Total 14.4 ng/mL (>30)
== END 2021-07-30 07:36 | disposition home or self-care (01) ==
LOC: HO.LAB 07:35
PROVIDERS: PCP Internal Medicine; Visit Provider Internal Medicine
DX: I10 Essential (primary) hypertension (principal); E78.00 Pure hypercholesterolemia, unspecified; E03.9 Hypothyroidism, unspecified; R73.01 Impaired fasting glucose; E55.9 Vitamin D deficiency, unspecified
CPT/HCPCS: 36415; 80053; 80061; 81001; 82306; 83036; 84439; 84443; 85025; 87086

== ENCOUNTER 2021-09-24 17:14 | Emergency (ER) | payer BC, SELFPAY ==
--- NOTE | ~2021-09-24 | NM_ITS ---
EXAMINATION: NM LUNG IMAGE PERFUSION CLINICAL INFORMATION: Elevated d-dimer. History of pulmonary embolus. Thoracic pain. COMPARISON: Chest x-ray 09/24/2021 TECHNIQUE: 4.0 mCi technetium 99m MAA injected intravenously. Multiple images obtained of the chest. FINDINGS: There is normal perfusion of the right and left lungs. No defect. No evidence of pulmonary embolism. NM/NM pul perfusion IMPRESSION: Normal perfusion scan of the lungs. No evidence of pulmonary embolism.
--- NOTE | ~2021-09-24 | XR_ITS ---
EXAMINATION: XR chest 2V CLINICAL INFORMATION: Reason for Exam back pain COMPARISON: Chest radiograph 07/13/2011 TECHNIQUE: 2 views of the chest XR/XR chest 2V FINDINGS/IMPRESSION: * Ectatic thoracic aorta similar to prior. Normal cardiac silhouette. * Clear lungs. * No pneumothorax or pleural effusion.
[2021-09-24 17:32] VITALS: BP 172/83; PULSE 82; RESP 19; TEMP 36.6; O2SAT 99; BMI 27.4
--- NOTE | 2021-09-24 18:03 | ED_ITS ---
HPI - General Adult General Chief complaint: Back Pain/Injury Stated complaint: back pain/discomfort Time Seen by Provider: 09/24/21 18:03 Source: patient Mode of arrival: ambulatory Limitations: no limitations History of Present Illness HPI narrative: Patient is a 60 year old female presenting to the emergency department today with middle upper back pain that radiates to the right side. Patient states that she has been having upper middle back intermittently for a few weeks and lately it has been worse. Patient states that she is concerned because she has a history of a pulmonary embolism 20 years ago. Patient states that she is not on any anti-coagulation. Patient denies any dizziness, lightheadedness, abdominal pain, nausea, vomiting, fever, chills, blurry vision, double vision, loss of vis ion, chest pain, difficulty breathing, shortness of breath, night sweats, pain with urination, increased urinary frequency, increased urinary urgency, blood in her urine or stool, syncope or a near syncopal episode, recent trauma or falls, bowel incontinence, bladder incontinence, bowel retention, bladder retention, or any other complaints at this time. Onset (ago): week(s) Location: back Severity: mild Severity scale (1-10): 3 Quality: dull Pain Consistency: intermittent Relieving factors: none Associated symptoms: denies other symptoms Treatments prior to arrival: none Related Data Home Medications Medication Instructions Recorded Confirmed gabapentin 300 mg capsule 600 mg PO BEDTIME cap 08/07/20 08/06/21 topiramate 25 mg tablet 25 mg PO BEDTIME 08/07/20 08/06/21 Previous Rx's Medication Instructions Recorded pravastatin 40 mg tablet 40 mg PO DAILY #90 tab 07/07/21 levothyroxine 100 mcg tablet 100 mcg PO DAILY 90 Days #90 tab 07/26/21 cholecalciferol (vitamin D3) 50 50 mcg PO DAILY 90 Days #90 cap 08/06/21 mcg (2,000 unit) capsule ferrous sulfate 250 mg (50 mg 250 mg PO DAILY 90 Days #90 tab 08/06/21 iron) tablet,extended release Allergies Allergy/AdvReac Type Severity Reaction Status Date / Time No Known Allergies Allergy Verified 08/06/21 09:03 [No Known Allergies*] Review of Systems Constitutional: Constitutional: Reports no additional constitutional complaints, Denies chills, Denies fever(s) and Denies night sweats Eyes: Eyes: Reports no additional eye complaints, Denies blurry vision, Denies change in vision, Denies diplopia, Denies eye discharge, Denies loss of vision and Denies eye pain ENT: Denies dizziness Cardiovascular: Cardiovascular: Reports no additional cardiovascular complaints, Denies chest pain, Denies lightheadedness, Denies Loss of Consciousness and Denies dyspnea Respiratory: Respiratory: Reports no additional respiratory complaints and Denies dyspnea Gastrointestinal: Gastrointestinal: Reports no additional gastrointestinal complaints, Denies abdominal pain, Denies melena, Denies hematochezia, Denies change in bowel habits and Denies change in stool character Genitourinary: Genitourinary: Denies hematuria, Denies urinary frequency, Denies dysuria, Denies urinary incontinence, Denies urinary hesitancy and Denies urinary urgency Musculoskeletal: Musculoskeletal: Reports no additional musculoskeletal comp laints, Reports back pain, Denies numbness and Denies tingling Neurologic: Denies dizziness, Denies loss of vision, Denies numbness and Denies tingling Psychiatric: Psychiatric: Reports no additional psychiatric complaints Endocrine: Endocrine: Reports no additional endocrine complaints Hematologic/Lymphatic: Hematologic/Lymphatic: Reports no additional hematologic/lymphatic complaints Allergic/Immunologic: Allergic/Immunologic: Reports no additional allergic/immunologic complaints [facility] Past Medical History Attestation statement: The following information was validated with the patient. Source: old records reviewed Medical History Acquired hypothyroidism Anxiety Arthritis Benign essential hypertension Celiac disease Cervical spondylosis Colon cancer screening Dystonia Hypothyroidism Impaired fasting glucose Insomnia Lumbar degenerative disc disease Migraine Overweight (BMI 25.0-29.9) PONV (postoperative nausea and vomiting) Primary osteoarthritis of right knee Pure hypercholesterolemia Reactive depression Vitamin D deficiency Surgical History H/O colonoscopy H/O esophagogastroduodenoscopy History of arthroplasty of left knee History of arthroplasty of right knee (~10/24/20) History of hand surgery History of lumbar surgery Family History Family History Father Cancer Mother CRD (chronic renal disease) CVD (cardiovascular disease) Myocardial infarction Sister Sarcoma Sister Melanoma Social History Social History Housing: Apartment Alcohol intake: current Alcohol intake frequency: does not drink Patient Tobacco Use Status: Never used Tobacco Second Hand Smoke Exposure: Yes Advance Directives: No Advance Directives Information Provided: No service: No Current occupational status: employed Physical Exam ED Vital Signs: Vital Signs - 24 hr 09/24/21 17:32 Temperature 98 F Pulse Rate 82 Respiratory Rate 19 Blood Pressure 172/83 H Pulse Oximetry 99 BMI result Body Mass Index 27.4 Const General: cooperative, no acute distress, alert and awake Nutritional Appearance: well nourished Orientation/consciousness: patient oriented x3 Limitations: no limitations HENMT Head: Yes normal to inspection and Yes atraumatic Ears: hearing grossly normal bilaterally and external ears normal General nose exam: Normal external nose present, no nasal discharge noted and no epistaxis Face and sinus: Yes normal facial exam, No abrasion and No laceration Mouth: Normal oral and palatal mucosa present, no drooling and no muffled voice Eyes General: appearance normal, both eyes and all related structures Periorbital: periorbital findings normal Eyelids: Yes eyelids normal Conjunctivae: conjunctivae normal Pupils: Equal, round and reactive pupils present EOM: EOMs intact bilaterally Neck Neck: Yes normal visual inspection, Yes full ROM and Yes no lymphadenopathy Chest Chest palpation & inspection: normal inspection of the chest Resp Effort & Inspection: normal respiratory effort and able to speak in complete sentences Auscultation: clear to auscultation bilaterally Cardio Rate: regular rate Rhythm: regular rhythm GI Inspection: Yes normal to inspection Neuro General: patient oriented x3 and moves all extremities Cranial nerves: Yes Equal, round and reactive pupils present Cognition (Neuro): normal cognition Motor exam (neuro): 5/5 motor strength present throughout Sensory Exam: Normal double simultaneous stimulation for sensation Coordination: [id number] test normal Extrem General: Yes normal to inspection, Yes full ROM and Yes capillary refill normal Psych Appearance: grossly normal Mental Status: mental status grossly normal Affect: normal affect Attitude: cooperative Thought process: Normal thought process present Thought content: Normal thought content present Insight: Good insight present (Psych) Medical Decision Making MDM Narrative Medical decision making narrative: Patient is a 60 year old female presenting to the emergency department today with thoracic back pain. Patient's physical exam was unremarkable. Patient's blood work showed a slightly elevated WBC count and an elevated d dimer but was otherwise normal. Patient's EKG was unremarkable. Patient's chest x-ray showed no acute process. Patient's VQ scan showed no acute process. I explained my physical exam findings as well as all test results to the patient. I answered all questions asked by the patient. I stressed the importance of the patient taking her medication as prescribed. I stressed the importance of the patient following up with her primary care provider. I stressed the importance of the patient returning to the emergency department immediately if her symptoms were to worsen or if she were to develop any dizziness, shortness of breath, difficulty breathing, chest pain, blurry vision, loss of vision, nausea, vomiting, abdominal pain, fever, chills, back pain, or any other complaints. Patient verbalized agreement and understanding with this treatment plan and discharge. Differential Diagnosis Differential Diagnosis: PE, back pain Medical Records Medical records reviewed: Yes I reviewed the patient's medical records. Lab Data Lab results reviewed: Yes I reviewed the patient's lab results. Result diagrams: 09/24/21 19:36 09/24/21 19:36 Labs: Lab Results 09/24/21 09/24/21 09/24/21 Range/Units 19:36 19:36 19:36 WBC 10.9 H (4.8-10.8) X10*3/uL RBC 4.81 (4.20-5.50) X10*6/uL Hgb 11.8 L (12.0-16.0) g/dl Hct 37.9 (37.0-47.0) % MCV 78.8 L (80.0-98.0) fL MCH 24.5 L (27.0-33.0) pg MCHC 31.1 (31.0-35.0) g/dl RDW 15.3 (11.0-16.0) % Plt Count 433 H (160-400) X10*3/uL MPV 9.8 (9.4-12.3) fL Immature Gran % (Auto) 0.4 (0.0-0.4) % Neut % (Auto) 72.6 (45-73) % Lymph % (Auto) 16.4 L (20-40) % [place] % (Auto) 8.9 (2-11) % Eos % (Auto) 0.9 (0-4) % Baso % (Auto) 0.8 (0-2) % Lymph # (Auto) 1.8 (1.2-4.9) X10*3/uL [place] # (Auto) 1.0 (0.1-1.2) X10*3/uL Eos # (Auto) 0.1 (0.0-0.4) X10*3/uL Baso # (Auto) 0.1 (0.0-0.2) X10*3/uL Abs Immat Gran (auto) 0.04 H (0.00-0.03) X10*3/uL Absolute Neuts (auto) 7.9 (2.0-8.3) x10*3/uL Absolute Nucleated RBC 0.000 (0.0-0.012) X10*3/uL Nucleated RBC % (auto) 0.0 (0.0-0.2) /100WBC D-Dimer High Sensitivty 352 NG/ML Sodium 138 (135-145) mmol/L Potassium 4.6 (3.3-5.1) mmol/L Chloride 105 (96-108) mmol/L Carbon Dioxide 24 (22-29) mmol/L Anion Gap 14 (12-20) BUN 19 H (9-16) mg/dL Creatinine 0.82 (0.5-1.4) mg/dL Estim Creat Clear Calc 69.4 Estimated GFR > 60 Random Glucose 103 (60-115) mg/dL Calcium 10.2 (8.4-10.2) mg/dL Total Bilirubin 0.5 (0.0-1.0) mg/dL AST 15 (5-31) U/L ALT 14 (0-31) U/L Alkaline Phosphatase 79 (39-117) U/L Troponin I High Sens (<3.5-17.0) ng/L Total Protein 8.2 H (6.5-8.0) g/dL Albumin 4.6 (3.5-5.0) g/dL 09/24/21 Range/Units 19:36 WBC (4.8-10.8) X10*3/uL RBC (4.20-5.50) X10*6/uL Hgb (12.0-16.0) g/dl Hct (37.0-47.0) % MCV (80.0-98.0) fL MCH (27.0-33.0) pg MCHC (31.0-35.0) g/dl RDW (11.0-16.0) % Plt Count (160-400) X10*3/uL MPV (9.4-12.3) fL Immature Gran % (Auto) (0.0-0.4) % Neut % (Auto) (45-73) % Lymph % (Auto) (20-40) % [place] % (Auto) (2-11) % Eos % (Auto) (0-4) % Baso % (Auto) (0-2) % Lymph # (Auto) (1.2-4.9) X10*3/uL [place] # (Auto) (0.1-1.2) X10*3/uL Eos # (Auto) (0.0-0.4) X10*3/uL Baso # (Auto) (0.0-0.2) X10*3/uL Abs Immat Gran (auto) (0.00-0.03) X10*3/uL Absolute Neuts (auto) (2.0-8.3) x10*3/uL Absolute Nucleated RBC (0.0-0.012) X10*3/uL Nucleated RBC % (auto) (0.0-0.2) /100WBC D-Dimer High Sensitivty NG/ML Sodium (135-145) mmol/L Potassium (3.3-5.1) mmol/L Chloride (96-108) mmol/L Carbon Dioxide (22-29) mmol/L Anion Gap (12-20) BUN (9-16) mg/dL Creatinine (0.5-1.4) mg/dL Estim Creat Clear Calc Estimated GFR Random Glucose (60-115) mg/dL Calcium (8.4-10.2) mg/dL Total Bilirubin (0.0-1.0) mg/dL AST (5-31) U/L ALT (0-31) U/L Alkaline Phosphatase (39-117) U/L Troponin I High Sens < 3.5 (<3.5-17.0) ng/L Total Protein (6.5-8.0) g/dL Albumin (3.5-5.0) g/dL Imaging Data Chest x-ray: Attestation: I personally reviewed and interpreted this imaging study as follows: My impression: No acute process. Radiologist's impression: EXAMINATION: XR chest 2V CLINICAL INFORMATION: Reason for Exam back pain COMPARISON: Chest radiograph? 07/13/2011 TECHNIQUE: 2 views of the chest XR/XR chest 2V FINDINGS/IMPRESSION: ? *? Ectatic thoracic aorta similar to prior. Normal cardiac silhouette. ? *? Clear lungs. ? *? No pneumothorax or pleural effusion. Dictated By: Kirsten Vicente MD Signed By: Electronically signed by Kirsten Vicente MD 09/24/21 1915 VQ Scan: Attestation: I personally reviewed and interpreted this imaging study as follows: My impression: No acute process. Radiologist's impression: EXAMINATION: NM LUNG IMAGE PERFUSION CLINICAL INFORMATION: Elevated d-dimer. History of pulmonary embolus. Thoracic pain. COMPARISON: Chest x-ray 09/24/2021 TECHNIQUE: 4.0 mCi technetium 99m MAA injected intravenously. Multiple images obtained of the chest. FINDINGS: There is normal perfusion of the right and left lungs. No defect. No evidence of pulmonary embolism. NM/NM pul perfusion IMPRESSION: Normal perfusion scan of the lungs. No evidence of pulmonary embolism. Dictated By: Horacio Ring MD Signed By: Electronically signed by Horacio Ring MD 09/24/21 011 ECG Data Attestation: I personally reviewed and interpreted this ECG as follows: Prior ECG tracings: available for review Interpretation: Vent. Rate: 077 BPM ? ? Atrial Rate: 077 BPM P-R Int: 156 ms? QRS Dur: 076 ms QT Int: 386 ms ? ? ? P-R-T Axes: 025 -35 023 degrees QTc Int: 436 ms ? Normal sinus rhythm Left axis deviation Pulmonary disease pattern Nonspecific T wave abnormality Abnormal ECG When compared with ECG of 06-JUN-2017 16:53, Minimal criteria for Inferior infarct are no longer Present Nonspecific T wave abnormality now evident in Inferior leads Nonspecific T wave abnormality now evident in Anterior leads DD/ 12 Discharge Plan Discharge Clinical Impression: Back pain, thoracic Patient Disposition: Home, Self-Care Instructions: Back Pain (ED) Additional Instructions: Follow up with your primary care provider. Return to the emergency department immediately if your symptoms worsen or if you develop any dizziness, shortness of breath, difficulty breathing, chest pain, blurry vision, loss of vision, nausea, vomiting, abdominal pain, fever, chills, back pain, or any other complaints. Prescriptions: No Action pravastatin 40 mg tablet 40 mg PO DAILY Qty: 90 1RF levothyroxine 100 mcg tablet 100 mcg PO DAILY 90 Days Qty: 90 1RF topiramate 25 mg tablet 25 mg PO BEDTIME 0RF gabapentin 300 mg capsule 600 mg PO BEDTIME 0RF cholecalciferol (vitamin D3) 50 mcg (2,000 unit) capsule 50 mcg PO DAILY 90 Days Qty: 90 3RF ferrous sulfate 250 mg (50 mg iron) tablet extended release 250 mg PO DAILY 90 Days Qty: 90 3RF Referrals: Deejay Meza MD [Primary Care Provider] - Print Language: Kazakh
--- NOTE | 2021-09-24 18:27 | ECG_ITS ---
Test Reason : RULE OUT PE Blood Pressure : / mmHG Vent. Rate : 077 BPM Atrial Rate : 077 BPM P-R Int : 156 ms QRS Dur : 076 ms QT Int : 386 ms P-R-T Axes : 025 -35 023 degrees QTc Int : 436 ms Normal sinus rhythm Left axis deviation Pulmonary disease pattern Nonspecific T wave abnormality Abnormal ECG When compared with ECG of 06-JUN-2017 16:53, Minimal criteria for Inferior infarct are no longer Present Nonspecific T wave abnormality now evident in Inferior leads Nonspecific T wave abnormality now evident in Anterior leads Referred By: Rowena Keith Electronically Signed By:JEFF MAE MD
[2021-09-24 19:42] LABS: MANUAL DIFF FLAG NO
[2021-09-24 19:44] LABS: Basophils Absolute Auto 0.1 X10*3/uL (0.0-0.2); Basophils Percent Auto 0.8 % (0-2); Eosinophils Absolute Auto 0.1 X10*3/uL (0.0-0.4); Eosinophils Percent Auto 0.9 % (0-4); Hematocrit 37.9 % (37.0-47.0); Hemoglobin 11.8 g/dl (12.0-16.0); Imm Gran Abs Auto 0.04 X10*3/uL (0.00-0.03); Imm Gran Pct Auto 0.4 % (0.0-0.4); Lymphocytes Absolute Auto 1.8 X10*3/uL (1.2-4.9); Lymphocytes Percent Auto 16.4 % (20-40); Mean Corpuscular HGB Conc 31.1 g/dl (31.0-35.0); Mean Corpuscular Hemoglobin 24.5 pg (27.0-33.0); Mean Corpuscular Volume 78.8 fL (80.0-98.0); Mean Platelet Volume 9.8 fL (9.4-12.3); Monocytes Percent Auto 8.9 % (2-11); Neutrophils Absolute Auto 7.9 x10*3/uL (2.0-8.3); Neutrophils Percent Auto 72.6 % (45-73); Platelet Count 433 X10*3/uL (160-400); Red Blood Count 4.81 X10*6/uL (4.20-5.50); Red Cell Distribution Width 15.3 % (11.0-16.0); White Blood Count 10.9 X10*3/uL (4.8-10.8)
[2021-09-24 20:01] LABS: D Dimer High Sensitivity 352 NG/ML
[2021-09-24 20:02] LABS: Alanine Aminotransferase 14 U/L (0-31); Albumin Level 4.6 g/dL (3.5-5.0); Alkaline Phosphatase 79 U/L (39-117); Anion Gap 14 (12-20); Aspartate Amino Transferase 15 U/L (5-31); Bilirubin Total 0.5 mg/dL (0.0-1.0); Blood Urea Nitrogen 19 mg/dL (9-16); Calcium 10.2 mg/dL (8.4-10.2); Carbon Dioxide 24 mmol/L (22-29); Chloride 105 mmol/L (96-108); Creatinine Clr Calc Pharmacy 69.4; Estimated Glomerular Filt Rate > 60; Glucose Random 103 mg/dL (60-115); Potassium 4.6 mmol/L (3.3-5.1); Sodium 138 mmol/L (135-145); Total Protein 8.2 g/dL (6.5-8.0)
[2021-09-24 20:05] LABS: Troponin-I High Sensitivity < 3.5 ng/L (<3.5-17.0)
== END 2021-09-24 22:28 | disposition home or self-care (01) ==
PROVIDERS: Physician Assistant Medical; Emergency Provider Student in an Organized Health Care Education/Training Program; PCP Internal Medicine
DX: M54.6 Pain in thoracic spine (principal); R79.1 Abnormal coagulation profile; D72.829 Elevated white blood cell count, unspecified; I10 Essential (primary) hypertension; R94.31 Abnormal electrocardiogram [ECG] [EKG]; Z86.711 Personal history of pulmonary embolism
CPT/HCPCS: 36415; 71046; 78580; 80053; 84484; 85025; 85379; 93005; 99282; 99283; 99285; A9540

== ENCOUNTER 2022-01-10 08:06 | Outpatient (REF) | payer BC, SELFPAY ==
[2022-01-10 10:29] LABS: MANUAL DIFF FLAG NO
[2022-01-10 10:33] LABS: Appearance Urine Cloudy; Color Urine Dark Yellow; Glucose Urine UA Negative (Negative); Leukocyte Esterase Urine Moderate (2+) (Negative); Nitrite Urine Negative (Negative); Urine Blood Trace (Negative); Urine Ketones Trace mg/dL (Negative); Urine Protein Trace mg/dL (Neg-Trace)
[2022-01-10 10:40] LABS: Basophils Absolute Auto 0.1 X10*3/uL (0.0-0.2); Basophils Percent Auto 1.4 % (0-2); Eosinophils Absolute Auto 0.2 X10*3/uL (0.0-0.4); Eosinophils Percent Auto 2.6 % (0-4); Hematocrit 41.4 % (37.0-47.0); Hemoglobin 12.9 g/dl (12.0-16.0); Imm Gran Abs Auto 0.01 X10*3/uL (0.00-0.03); Imm Gran Pct Auto 0.2 % (0.0-0.4); Lymphocytes Absolute Auto 1.9 X10*3/uL (1.2-4.9); Lymphocytes Percent Auto 29.2 % (20-40); Mean Corpuscular HGB Conc 31.2 g/dl (31.0-35.0); Mean Corpuscular Hemoglobin 25.4 pg (27.0-33.0); Mean Corpuscular Volume 81.5 fL (80.0-98.0); Mean Platelet Volume 10.3 fL (9.4-12.3); Monocytes Absolute Auto 0.5 X10*3/uL (0.1-1.2); Monocytes Percent Auto 7.8 % (2-11); Neutrophils Absolute Auto 3.8 x10*3/uL (2.0-8.3); Neutrophils Percent Auto 58.8 % (45-73); Platelet Count 378 X10*3/uL (160-400); Red Blood Count 5.08 X10*6/uL (4.20-5.50); Red Cell Distribution Width 19.4 % (11.0-16.0); White Blood Count 6.5 X10*3/uL (4.8-10.8)
[2022-01-10 10:47] LABS: Bacteria Urine 1+ (None Seen); Granular Casts Urine Present; Hyaline Casts Urine >20 /LPF (0-2); WBC Urine 0-5 /HPF (0-5)
[2022-01-10 10:50] LABS: Alanine Aminotransferase 14 U/L (0-31); Albumin Level 4.3 g/dL (3.5-5.0); Alkaline Phosphatase 83 U/L (39-117); Anion Gap 16 (12-20); Aspartate Amino Transferase 15 U/L (5-31); Bilirubin Total 0.4 mg/dL (0.0-1.0); Blood Urea Nitrogen 12 mg/dL (9-16); Calcium 9.8 mg/dL (8.4-10.2); Carbon Dioxide 23 mmol/L (22-29); Chloride 109 mmol/L (96-108); Cholesterol 225 mg/dL; Estimated Glomerular Filt Rate > 60; Glucose Fasting 104 mg/dL (60-99); HDL Cholesterol 61 mg/dL; Iron 48 mcg/dL (30-160); LDL Cholesterol Calculated 147 mg/dl; Percent Iron Saturation 12 % (15-50); Potassium 4.5 mmol/L (3.3-5.1); Sodium 143 mmol/L (135-145); Total Iron Binding Capacity 389 mcg/dL (228-428); Total Protein 7.2 g/dL (6.5-8.0); Triglycerides 87 mg/dL; Unsaturated Iron Binding 341 ug/dL
[2022-01-10 11:09] LABS: Free T4 (Free Thyroxine) 1.04 ng/dL (0.71-1.85); Thyroid Stimulating Hormone 1.45 uIU/mL (0.32-4.0); Vitamin D 25-OH Total 27.8 ng/mL (>30)
[2022-01-10 11:40] LABS: Estimated Average Glucose 105 mg/dL; Hemoglobin A1c % 5.3 %
== END 2022-01-10 08:07 | disposition home or self-care (01) ==
LOC: HO.10HDL 08:06
PROVIDERS: Visit Provider Internal Medicine
DX: E03.9 Hypothyroidism, unspecified (principal); I10 Essential (primary) hypertension; D50.9 Iron deficiency anemia, unspecified; E78.00 Pure hypercholesterolemia, unspecified; R73.01 Impaired fasting glucose; E55.9 Vitamin D deficiency, unspecified
CPT/HCPCS: 36415; 80053; 80061; 81001; 82306; 83036; 83540; 84439; 84443; 85025

== ENCOUNTER 2022-04-14 08:34 | Outpatient (REF) | payer BC, SELFPAY ==
--- NOTE | 2022-04-13 08:30 | EMG_ITS ---
Please see scanned EMG / Nerve Conduction Report. MTDD
== END 2022-04-14 08:35 | disposition home or self-care (01) ==
LOC: HO.NEURO 08:34
PROVIDERS: PCP Internal Medicine; Visit Provider Internal Medicine
DX: M79.601 Pain in right arm (principal)
CPT/HCPCS: 95886; 95910

== ENCOUNTER 2022-05-25 05:58 | Outpatient (REF) | payer BC, SELFPAY ==
--- NOTE | ~2022-05-25 | FL_ITS ---
EXAMINATION: XR FLUOROSCOPY WITH IMAGES CLINICAL INFORMATION: M54.12 - Radiculopathy, cervical region COMPARISON: Fluoroscopic spot views 05/12/2021 TECHNIQUE: Fluoroscopy Supervised By: Dr. Ant Louis. Fluoroscopy Time: 0.2 minutes. Cumulative Dose: 1.66 mGy. DAP: 10.123 Gycm2. Images: 3. FINDINGS: There is interlaminar spinal needle lower cervical spine with epidural contrast. No visible vascular communication. FL/FL guidance in treatment room IMPRESSION: Fluoroscopy for pain management procedure.
== END 2022-05-25 05:59 | disposition home or self-care (01) ==
LOC: CF 05:58
PROVIDERS: Visit Provider Internal Medicine
DX: M54.12 Radiculopathy, cervical region (principal)
CPT/HCPCS: 62321; J1100; Q9965

== ENCOUNTER → 2022-06-24 07:58 | Outpatient (BNVA) | payer BC, SELFPAY | PROVIDERS: PCP Internal Medicine; Visit Provider Internal Medicine | DX: Z13.89 Encounter for screening for other disorder (principal) ==

== ENCOUNTER 2022-07-21 06:53 | Outpatient (REF) | payer BC, SELFPAY ==
[2022-07-21 07:03] LABS: MANUAL DIFF FLAG NO
[2022-07-21 07:40] LABS: Basophils Absolute Auto 0.1 X10*3/uL (0.0-0.2); Basophils Percent Auto 1.2 % (0-2); Eosinophils Absolute Auto 0.2 X10*3/uL (0.0-0.4); Eosinophils Percent Auto 2.3 % (0-4); Hematocrit 39.7 % (37.0-47.0); Hemoglobin 12.3 g/dl (12.0-16.0); Imm Gran Abs Auto 0.02 X10*3/uL (0.00-0.03); Imm Gran Pct Auto 0.3 % (0.0-0.4); Lymphocytes Absolute Auto 2.2 X10*3/uL (1.2-4.9); Lymphocytes Percent Auto 31.9 % (20-40); Mean Corpuscular Hemoglobin 25.9 pg (27.0-33.0); Mean Corpuscular Volume 83.6 fL (80.0-98.0); Mean Platelet Volume 10.2 fL (9.4-12.3); Monocytes Absolute Auto 0.7 X10*3/uL (0.1-1.2); Monocytes Percent Auto 9.7 % (2-11); Neutrophils Absolute Auto 3.8 x10*3/uL (2.0-8.3); Neutrophils Percent Auto 54.6 % (45-73); Platelet Count 403 X10*3/uL (160-400); Red Blood Count 4.75 X10*6/uL (4.20-5.50); Red Cell Distribution Width 14.3 % (11.0-16.0); White Blood Count 6.9 X10*3/uL (4.8-10.8)
[2022-07-21 08:18] LABS: Alanine Aminotransferase 12 U/L (0-31); Albumin Level 4.3 g/dL (3.5-5.0); Alkaline Phosphatase 81 U/L (39-117); Anion Gap 15 (12-20); Aspartate Amino Transferase 16 U/L (5-31); Bilirubin Total 0.5 mg/dL (0.0-1.0); Blood Urea Nitrogen 17 mg/dL (9-16); Calcium 9.4 mg/dL (8.4-10.2); Carbon Dioxide 24 mmol/L (22-29); Chloride 108 mmol/L (96-108); Cholesterol 182 mg/dL; Estimated Glomerular Filt Rate > 60; Glucose Fasting 109 mg/dL (60-99); HDL Cholesterol 62 mg/dL; LDL Cholesterol Calculated 108 mg/dl; Potassium 4.9 mmol/L (3.3-5.1); Sodium 142 mmol/L (135-145); Total Protein 7.1 g/dL (6.5-8.0); Triglycerides 63 mg/dL
[2022-07-21 08:20] LABS: Appearance Urine Clear; Color Urine Yellow; Glucose Urine UA Negative (Negative); Leukocyte Esterase Urine Small (1+) (Negative); Nitrite Urine Negative (Negative); PH 6.5 (5.0-9.0); UMIC TRIGGER UACC YES; Urine Blood Trace (Negative); Urine Ketones Trace mg/dL (Negative); Urine Protein Negative (Neg-Trace)
[2022-07-21 08:32] LABS: Bacteria Urine Trace (None Seen); Hyaline Casts Urine 0-2 /LPF (0-2); UACC Culture Trigger YES; WBC Urine 0-5 /HPF (0-5)
[2022-07-21 08:40] LABS: Free T4 (Free Thyroxine) 1.06 ng/dL (0.71-1.85); Thyroid Stimulating Hormone 0.37 uIU/mL (0.32-4.0); Vitamin D 25-OH Total 20.9 ng/mL (>30)
== END 2022-07-21 06:54 | disposition home or self-care (01) ==
LOC: HO.LAB 06:53
PROVIDERS: PCP Internal Medicine; Visit Provider Internal Medicine
DX: I10 Essential (primary) hypertension (principal); E55.9 Vitamin D deficiency, unspecified; E03.9 Hypothyroidism, unspecified; E78.00 Pure hypercholesterolemia, unspecified; D47.3 Essential (hemorrhagic) thrombocythemia; D64.9 Anemia, unspecified; R82.90 Unspecified abnormal findings in urine
CPT/HCPCS: 36415; 80053; 80061; 81001; 82306; 84439; 84443; 85025; 87086

== ENCOUNTER 2022-08-09 15:57 | Outpatient (REF) | payer BC, SELFPAY ==
--- NOTE | ~2022-08-09 | US_ITS ---
EXAMINATION: US SOFT TISSUE NECK CLINICAL INFORMATION: Palpable soft tissue anterior to the right ear. COMPARISON: None available. TECHNIQUE: Limited imaging through the right anterior ear was performed. FINDINGS: Imaging through the anterior ear palpable area is a small lymph node measuring 1.8 x 1.3 x 0.9 cm. It is hypoechoic but avascular. A similar-sized lymph node is seen on the left side anterior to the ear. US/US soft tiss head and/or neck IMPRESSION: 1. Hypoechoic 1.8 cm lesion anterior to right ear is likely a small lymph node, atypical-appearing. A fine-needle biopsy of this nodule can be performed under ultrasound. 2. A similar benign-appearing lymph node is seen anterior to left ear for comparison. It has typical lymph node appearance.
== END 2022-08-09 15:58 | disposition home or self-care (01) ==
LOC: HO.US 15:57
PROVIDERS: PCP Internal Medicine; Visit Provider Internal Medicine
DX: R59.9 Enlarged lymph nodes, unspecified (principal)
CPT/HCPCS: 76536

== ENCOUNTER 2022-08-17 06:04 | Outpatient (REF) | payer BC, SELFPAY ==
--- NOTE | ~2022-08-17 | FL_ITS ---
EXAMINATION: XR FL WITH IMAGES CLINICAL INFORMATION: Radiculopathy cervical region. COMPARISON: None available. TECHNIQUE: Fluoroscopy Supervised By: Dr. Ant Louis. Fluoroscopy Time: 0.1 minute. Cumulative Dose: 3 mGy. DAP: 0.3 Gycm2. Images: 3. FINDINGS: Images demonstrate needle placement and contrast injection adjacent to a left lower cervical vertebrae. FL/FL guidance in treatment room IMPRESSION: Fluoroscopy guidance for pain management procedure.
== END 2022-08-17 06:05 | disposition home or self-care (01) ==
LOC: CF 06:04
PROVIDERS: Visit Provider Internal Medicine
DX: M54.12 Radiculopathy, cervical region (principal)
CPT/HCPCS: 62321; J1100

== ENCOUNTER → 2022-09-16 08:00 | Outpatient (BNVA) | payer BC, SELFPAY | PROVIDERS: PCP Internal Medicine; Visit Provider Internal Medicine ==

== ENCOUNTER 2023-01-19 07:55 | Outpatient (REF) | payer BC, SELFPAY ==
[2023-01-19 08:10] LABS: MANUAL DIFF FLAG NO
[2023-01-19 08:47] LABS: Basophils Absolute Auto 0.1 X10*3/uL (0.0-0.2); Basophils Percent Auto 1.2 % (0-2); Eosinophils Absolute Auto 0.2 X10*3/uL (0.0-0.4); Eosinophils Percent Auto 2.2 % (0-4); Hematocrit 38.2 % (37.0-47.0); Hemoglobin 11.6 g/dl (12.0-16.0); Imm Gran Abs Auto 0.02 X10*3/uL (0.00-0.03); Imm Gran Pct Auto 0.3 % (0.0-0.4); Lymphocytes Absolute Auto 1.9 X10*3/uL (1.2-4.9); Mean Corpuscular HGB Conc 30.4 g/dl (31.0-35.0); Mean Corpuscular Hemoglobin 24.3 pg (27.0-33.0); Mean Corpuscular Volume 79.9 fL (80.0-98.0); Mean Platelet Volume 9.9 fL (9.4-12.3); Monocytes Absolute Auto 0.7 X10*3/uL (0.1-1.2); Neutrophils Absolute Auto 4.4 x10*3/uL (2.0-8.3); Neutrophils Percent Auto 61.3 % (45-73); Platelet Count 388 X10*3/uL (160-400); Red Blood Count 4.78 X10*6/uL (4.20-5.50); White Blood Count 7.2 X10*3/uL (4.8-10.8)
[2023-01-19 09:15] LABS: Alanine Aminotransferase 13 U/L (0-31); Albumin Level 4.1 g/dL (3.5-5.0); Alkaline Phosphatase 80 U/L (39-117); Anion Gap 13 (12-20); Aspartate Amino Transferase 15 U/L (5-31); Bilirubin Total 0.3 mg/dL (0.0-1.0); Blood Urea Nitrogen 12 mg/dL (9-16); Calcium 9.7 mg/dL (8.4-10.2); Carbon Dioxide 24 mmol/L (22-29); Chloride 111 mmol/L (96-108); Cholesterol 166 mg/dL (<200); Estimated Glomerular Filt Rate > 60; Glucose Fasting 109 mg/dL (60-99); HDL Cholesterol 66 mg/dL (>40); LDL Cholesterol Calculated 92 mg/dL (<100); Potassium 4.3 mmol/L (3.3-5.1); Sodium 144 mmol/L (135-145); Total Protein 7.3 g/dL (6.5-8.0); Triglycerides 41 mg/dL (<150)
[2023-01-19 09:33] LABS: Free T4 (Free Thyroxine) 1.02 ng/dL (0.71-1.85); Thyroid Stimulating Hormone 0.13 uIU/mL (0.32-4.0); Vitamin D 25-OH Total 47.4 ng/mL (>30)
== END 2023-01-19 07:56 | disposition home or self-care (01) ==
LOC: HO.LAB 07:55
PROVIDERS: PCP Internal Medicine; Visit Provider Internal Medicine
DX: I10 Essential (primary) hypertension (principal); E03.9 Hypothyroidism, unspecified; E78.00 Pure hypercholesterolemia, unspecified; E55.9 Vitamin D deficiency, unspecified
CPT/HCPCS: 36415; 80053; 80061; 82306; 84439; 84443; 85025

== ENCOUNTER 2023-01-25 09:59 | Outpatient (AMB) | payer BC, SELFPAY ==
--- NOTE | 2023-01-25 10:05 | MHC.PC.OV ---
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 Accompanied by: Self / Same As Patient Allergies No Known Allergies [No Known Allergies*] Allergy (Verified 01/25/23 12:21) Medication List - Last Reconciled 01/25/23 by Deejay Meza MD cholecalciferol (vitamin D3) 50 mcg PO DAILY 90 days gabapentin 600 mg PO BEDTIME levothyroxine 100 mcg PO DAILY 90 days pravastatin 40 mg PO DAILY topiramate 25 mg PO BEDTIME Tobacco use date assessed: 01/25/23 Fall risk assessment: No Falls in past year Last assessed Fall Risk: 01/25/23 Dental Screening Dental Screen Date: 01/25/23 Did you have a dental visit in the last 12 months?: Yes Did you have a dental problem in the last 6 months where you did not have access to dental care?: No Was dental information given to patient?: Patient has dentist HPI hyperlipidemia, migraine, hypothyroidism HPI Details Patient comes in today for her follow up visit States that she feels okay Still has the nodule above her right jaw area in front of her right ear but states that the lesion has not changed or gotten bigger lately Would like to know what the US done a few months ago showed exactly She denies any fever, headaches or dizziness Denies any chest pains, no SOB No nausea/vomiting, no abdominal pain No change in bowel habits noted Had her follow up labs done last week - to discuss her results Thinks that she is anemic as she states that she has tried donating blood 3 times already over the past few months and has been turned down each time she went [facility] Medical History Arthritis Hypothyroidism PONV (postoperative nausea and vomiting) Celiac disease Overweight (BMI 25.0-29.9) Reactive depression Anxiety Primary osteoarthritis of right knee Insomnia Migraine Dystonia Lumbar degenerative disc disease Impaired fasting glucose Colon cancer screening Cervical spondylosis Vitamin D deficiency Acquired hypothyroidism Pure hypercholesterolemia Benign essential hypertension Surgical History History of arthroplasty of right knee (~10/24/20) H/O esophagogastroduodenoscopy H/O colonoscopy History of hand surgery History of lumbar surgery History of arthroplasty of left knee Family History Father Cancer Mother CRD (chronic renal disease) CVD (cardiovascular disease) Myocardial infarction Sister Sarcoma Sister Melanoma Social History Housing: Apartment Alcohol intake: current Alcohol intake frequency: does not drink Patient Tobacco Use Status: Never used Tobacco e-Cigarette/Vaping Use: Never Used Second Hand Smoke Exposure: Yes service: No Current occupational status: employed and retired Current occupational exposures/hazards: No Cognitive needs: No Hearing needs: No Vision needs: No Questionnaire Thrive Questionnaire Date Thrive assessed: 07/22/22 LONG-7 AMB Questionnaire LONG-7 Date LONG - 7 assessed: 01/25/23 Feeling nervous, anxious, or on edge: 0 = Not at all Not being able to stop or control worryin = Not at all Worrying too much about different things: 0 = Not at all Trouble relaxin = Not at all Being so restless that it is hard to sit still: 0 = Not at all Becoming easily annoyed or irritable: 0 = Not at all Feeling afraid as if something awful might happen: 0 = Not at all Total LONG-7 score (0-4 normal; 5-9 mild; 10-14 moderate; 15-21 severe): 0 Source: Developed by Drs. Greg Manriquez, Dorothy Paula, Mckinley Renee and colleagues, with an educational jero from Who@. Review of Systems Const Denies chills, Reports difficulty sleeping, Reports fatigue, Denies fever(s) and Denies headache(s) ENT Denies dysphagia, Denies dizziness, Denies otalgia, Denies headache(s), Reports neck pain (has right-sided cervical dystonia), Denies odynophagia and Denies sore throat Card Denies chest pain, Denies palpitations and Denies dyspnea Resp Denies cough and Denies dyspnea GI Denies abdominal pain, Denies constipation, Denies dysphagia, Denies heartburn, Denies diarrhea, Denies nausea, Denies odynophagia and Denies vomiting Denies difficulty voiding, Denies nocturia and Denies dysuria Musc Details: (+) recurrent pain over the right arm and right leg, often with increased activity or exertion Reports back pain (on and off over the lower back), Reports neck pain (has right-sided cervical dystonia) and Reports radiating pain into limb (into right arm) Skin/Breast Details: (+) hard firm but non-tender nodule on the right jaw/TMJ area Neuro Denies dizziness and Denies headache(s) Endo Reports fatigue and Denies palpitations Physical exam (Primary Care) Vital Signs: Last Vital Signs BP 130/86 01/25/23 10:06 BMI result Body Mass Index 25.6 Tobacco/Smoking Status: Tobacco use Status Tobacco use date assessed 01/25/23 01/25/23 10:11 Patient Tobacco Use Status Never used Tobacco 01/25/23 10:11 e-Cigarette/Vaping Use Never Used 01/25/23 10:11 Thrive Assessment: Date of Thrive Assessment Date Thrive assessed 07/22/22 01/25/23 10:11 Const General: no acute distress and alert HENMT Other: (+) firm, non-tender nodule over the right TMJ area/preauricular area Ears: TM's normal bilaterally and EAC's normal Throat: Yes posterior oropharynx normal and Yes tonsils normal (no TP congestion noted) Neck Neck: Yes no lymphadenopathy and Yes tender Resp Auscultation: clear to auscultation bilaterally, no rales and no wheezes Cardio Rate: regular rate Rhythm: regular rhythm Heart sounds: no murmurs GI Palpation (GI): Soft to palpation and nontender Auscultation: normal bowel sounds Back/Spine/Pelvis Cervical Spine: cervical muscular tenderness (more on the right side) and Cervical spine tenderness (mild) Thoracic/Lumbar Spine: lumbar spinal tenderness Neuro Motor exam (neuro): 5/5 motor strength present throughout and Normal motor muscle tone present throughout Extrem General: Yes no clubbing, cyanosis or edema Right lower extremity: knee Details: tenderness; no swelling Assessment and Plan Assessment & Plan (1) Pure hypercholesterolemia: Code(s): E78.00 - Pure hypercholesterolemia, unspecified Plan: Results of her labs done last week reviewed and discussed with patient - her cholesterol levels have improved again from previous Reinforced low cholesterol diet Continue Pravastatin 40 mg QD Will recheck her labs and fasting lipids in 6 months for follow up (2) Benign essential hypertension: Code(s): I10 - Essential (primary) hypertension Plan: Reinforced low sodium diet - goal is systolic BP of 120 mm or less Continue Lisinopril 5 mg QD (3) Acquired hypothyroidism: Code(s): E03.9 - Hypothyroidism, unspecified Plan: Her TSH level is low but her free T4 level remains normal on her recent labs Continue Levothyroxine 100 mcg QD Will recheck her TFTs in 6 months for follow up (4) Cervical spondylosis: Code(s): M47.812 - Spondylosis without myelopathy or radiculopathy, cervical region Plan: Cervical spine x-rays done back on 02/12/2019 showed (+) multilevel degenerative changes with a mild 3 mm anterior subluxation of C3 with respect to C4 that is slightly increased from previous C-spine MRI done in 03/2012 S/P RFA x 2 with pain management over the past couple of years - reports (+) significant relief of her neck symptoms initially but symptoms have since regressed EMG & NCV done back in March 2022 revealed findings consistent with mild chronic right C5-C6 radiculopathy; nerve conduction studies came back completely normal Had C6-C7 fluoroscopy-guided parasagittal epidural steroid injection x 2 a few months ago with (+) symptomatic relief Follow up with Pain Management as scheduled (5) Dystonia: Comment: Has cervical dystonia Code(s): G24.9 - Dystonia, unspecified Plan: Continue Gabapentin 300 mg 2 capsules (600 mg) daily at bedtime Follow up with neurology as scheduled (6) Lumbar degenerative disc disease: Comment: S/P lumbar decompression [place] [address] Zapata, with (+) significant relief of her acute lower back symptoms Code(s): M51.36 - Other intervertebral disc degeneration, lumbar region Plan: Reinforced activity and weight-lifting restrictions (7) Thrombocytosis: Code(s): D47.3 - Essential (hemorrhagic) thrombocythemia Plan: Improved; platelet count is normal on her labs done last week Was possibly reactive thrombocyosis and related to her anemia Will continue to monitor her platelet count and CBC regularly (8) Anemia: Code(s): D64.9 - Anemia, unspecified Qualifiers: Anemia type: unspecified type Qualified Code(s): D64.9 - Anemia, unspecified Plan: Her Hgb count has decreased slightly to 11.6 on her recent labs; Hct is still normal but she is also showing some microcytic and hypochromic changes on her CBC, likely due to early iron-deficiency Have instructed her to start taking some OTC Multivitamins WITH Iron daily Will continue to monitor her CBC regularly for now (9) Lymph node enlargement: Code(s): R59.9 - Enlarged lymph nodes, unspecified Plan: Soft tissue US of the nodule over her right TMJ area done a few months ago revealed a hypoechoic 1.8 cm lesion anterior to right ear that is likely a small lymph node but is atypical-appearing. A fine-needle biopsy of this nodule can be performed under ultrasound if desired. There is a similar benign-appearing lymph node is seen anterior to left ear for comparison. It has typical lymph node appearance Patient would like to hold off on biopsy at this time and continue to observe her right-sided jaw nodule for now but will call for orders for Bx if she changes her mind about this (10) Migraine: Code(s): G43.909 - Migraine, unspecified, not intractable, without status migrainosus Qualifiers: Migraine type: unspecified Status migrainosus presence: without status migrainosus Intractability: not intractable Qualified Code(s): G43.909 - Migraine, unspecified, not intractable, without status migrainosus Plan: Stable - symptoms have improved significantly on prophylactic Rx Continue Topiramate 25 mg QHS and Sumatriptan 50 mg PRN Reinforced avoidance of migraine triggers Follow up with neurology as scheduled (11) Impaired fasting glucose: Code(s): R73.01 - Impaired fasting glucose Plan: HgbA1c was normal at 5.3% and 5.6% when previously checked Reinforced low calorie diet/exercise as tolerated (12) Vitamin D deficiency: Code(s): E55.9 - Vitamin D deficiency, unspecified Plan: Corrected - continue Vitamin D3 2000 units QD Is also taking a combined Vitamin D and Calcium tablets, which contains Vitamin D of around 400 to 600 units (13) Primary osteoarthritis of right knee: Code(s): M17.11 - Unilateral primary osteoarthritis, right knee Plan: S/P right knee arthroplasty in October 2020 Follow up with orthopedics ([facility]) as scheduled (14) Neuropathy: Comment: EMG & NCV done on 10/31/2017 revealed (+) moderately severe right peroneal neuropathy and 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 Code(s): G62.9 - Polyneuropathy, unspecified Plan: States that Gabapentin helps with her symptoms Still has recurrent right leg pain/symptoms Follow up with neurology as scheduled (15) Insomnia: Code(s): G47.00 - Insomnia, unspecified Qualifiers: Insomnia type: unspecified Qualified Code(s): G47.00 - Insomnia, unspecified Plan: Sleep hygiene reinforced States that Gabapentin at bedtime seems to have helped previously but not anymore lately Reports still waking up at least 2 to 3 times a night at times for no particular reason Continue OTC Melatonin Q HS PRN (16) Anxiety: Code(s): F41.9 - Anxiety disorder, unspecified Plan: Feels that she is still doing well with her anxiety and no longer has to take Hydroxyzine Used to do counseling with [facility] but states that she has not needed to do so in a while now (17) Reactive depression: Code(s): F32.9 - Major depressive disorder, single episode, unspecified Plan: Improved - is no longer taking Mirtazapine and feels that she is doing well (18) Overweight (BMI 25.0-29.9): Code(s): E66.3 - Overweight Plan: Reinforced diet/exercise as tolerated/lose weight Plan Follow up in 6 months Orders: Orders Comprehensive [place]. Panel Fast 6 Months E78.00 - Pure hypercholesterolemia, unspecified Thyroid Stimulating Hormone 6 Months E03.9 - Hypothyroidism, unspecified Complete Blood Count Auto Diff 6 Months D64.9 - Anemia, unspecified Lipid Panel 6 Months E78.00 - Pure hypercholesterolemia, unspecified Free T4 (Free Thyroxine) 6 Months E03.9 - Hypothyroidism, unspecified IRON PROFILE 6 Months D50.9 - Iron deficiency anemia, unspecified, D64.9 - Anemia, unspecified Hemoglobin A1c 6 Months R73.01 - Impaired fasting glucose Coding Level of Care Code Est Pt Level 4 (02623) Diagnoses Pure hypercholesterolemia E78.00 Benign essential hypertension I10 Acquired hypothyroidism E03.9 Cervical spondylosis M47.812 Dystonia G24.9 Lumbar degenerative disc disease M51.36 Thrombocytosis D47.3 Anemia, unspecified type D64.9 Anemia type: unspecified type Lymph node enlargement R59.9 Migraine without status migrainosus, not intractable, unspecified migraine type G43.909 Migraine type: unspecified Status migrainosus presence: without status migrainosus Intractability: not intractable Impaired fasting glucose R73.01 Vitamin D deficiency E55.9 Primary osteoarthritis of right knee M17.11 Neuropathy G62.9 Insomnia, unspecified type G47.00 Insomnia type: unspecified Anxiety F41.9 Reactive depression F32.9 Overweight (BMI 25.0-29.9) E66.3
[2023-01-25 10:06] VITALS: BP 130/86; BMI 25.6
== END 2023-01-25 11:14 | disposition home or self-care (01) ==
PROVIDERS: PCP Internal Medicine; Visit Provider Internal Medicine
DX: I10 Essential (primary) hypertension (principal); E03.9 Hypothyroidism, unspecified; D47.3 Essential (hemorrhagic) thrombocythemia; F41.9 Anxiety disorder, unspecified; G43.909 Migraine, unspecified, not intractable, without status migrainosus; E55.9 Vitamin D deficiency, unspecified; F32.9 Major depressive disorder, single episode, unspecified; E78.00 Pure hypercholesterolemia, unspecified; M47.812 Spondylosis without myelopathy or radiculopathy, cervical region; G24.9 Dystonia, unspecified; M51.36 Other intervertebral disc degeneration, lumbar region; D64.9 Anemia, unspecified
CPT/HCPCS: 99214

== ENCOUNTER 2023-07-17 09:43 | Outpatient (REF) | payer BC, SELFPAY ==
[2023-07-17 10:02] LABS: MANUAL DIFF FLAG NO
[2023-07-17 10:53] LABS: Appearance Urine Clear; Color Urine Yellow; Glucose Urine UA Negative (Negative); Leukocyte Esterase Urine Small (1+) (Negative); Nitrite Urine Negative (Negative); Specific Gravity - Urine >= 1.030 (1.005-1.025); UMIC TRIGGER UACC YES; Urine Blood Small (1+) (Negative); Urine Ketones Negative (Negative); Urine Protein Trace mg/dL (Neg-Trace)
[2023-07-17 10:54] LABS: Basophils Absolute Auto 0.1 X10*3/uL (0.0-0.2); Basophils Percent Auto 1.3 % (0-2); Eosinophils Absolute Auto 0.1 X10*3/uL (0.0-0.4); Eosinophils Percent Auto 1.7 % (0-4); Hematocrit 40.3 % (37.0-47.0); Hemoglobin 12.8 g/dl (12.0-16.0); Imm Gran Abs Auto 0.03 X10*3/uL (0.00-0.03); Imm Gran Pct Auto 0.4 % (0.0-0.4); Lymphocytes Percent Auto 29.2 % (20-40); Mean Corpuscular HGB Conc 31.8 g/dl (31.0-35.0); Mean Corpuscular Hemoglobin 27.4 pg (27.0-33.0); Mean Corpuscular Volume 86.1 fL (80.0-98.0); Mean Platelet Volume 10.7 fL (9.4-12.3); Monocytes Absolute Auto 0.5 X10*3/uL (0.1-1.2); Monocytes Percent Auto 7.2 % (2-11); Neutrophils Absolute Auto 4.2 x10*3/uL (2.0-8.3); Neutrophils Percent Auto 60.2 % (45-73); Platelet Count 250 X10*3/uL (160-400); Red Blood Count 4.68 X10*6/uL (4.20-5.50); Red Cell Distribution Width 13.3 % (11.0-16.0)
[2023-07-17 10:58] LABS: Estimated Average Glucose 108 mg/dL; Hemoglobin A1c % 5.4 % (<6.0)
[2023-07-17 11:19] LABS: Bacteria Urine Trace (None Seen); Calcium Oxalate Crystals Urine Present; Hyaline Casts Urine 0-2 /LPF (0-2); RBC Urine 0-2 /HPF (0-2); Squamous Epithelial Cell Urine 0-2 /HPF (0-2); UACC Culture Trigger YES; WBC Urine 0-5 /HPF (0-5)
[2023-07-17 11:40] LABS: Alanine Aminotransferase 13 U/L (0-31); Albumin Level 4.1 g/dL (3.5-5.0); Alkaline Phosphatase 73 U/L (39-117); Anion Gap 11 (12-20); Aspartate Amino Transferase 18 U/L (5-31); Bilirubin Total 0.4 mg/dL (0.0-1.0); Blood Urea Nitrogen 14 mg/dL (9-16); Calcium 9.1 mg/dL (8.4-10.2); Carbon Dioxide 21 mmol/L (22-29); Chloride 113 mmol/L (96-108); Cholesterol 182 mg/dL (<200); Estimated Glomerular Filt Rate > 60; Glucose Fasting 123 mg/dL (60-99); HDL Cholesterol 60 mg/dL (>40); Iron 51 mcg/dL (30-160); LDL Cholesterol Calculated 105 mg/dL (<100); Percent Iron Saturation 17 % (15-50); Potassium 3.7 mmol/L (3.3-5.1); Sodium 141 mmol/L (135-145); Total Iron Binding Capacity 300 mcg/dL (228-428); Triglycerides 89 mg/dL (<150); Unsaturated Iron Binding 249 ug/dL
[2023-07-17 11:44] LABS: Free T4 (Free Thyroxine) 1.11 ng/dL (0.71-1.85); Thyroid Stimulating Hormone 0.05 uIU/mL (0.32-4.0)
== END 2023-07-17 09:44 | disposition home or self-care (01) ==
LOC: HO.LAB 09:43
PROVIDERS: PCP Internal Medicine; Visit Provider Internal Medicine
DX: E03.9 Hypothyroidism, unspecified (principal); D50.9 Iron deficiency anemia, unspecified; R73.01 Impaired fasting glucose; E78.00 Pure hypercholesterolemia, unspecified; R82.90 Unspecified abnormal findings in urine
CPT/HCPCS: 36415; 80053; 80061; 81001; 83036; 83540; 84439; 84443; 85025; 87086

== ENCOUNTER 2023-07-26 10:07 | Outpatient (AMB) | payer BC, SELFPAY ==
--- NOTE | 2023-07-26 10:08 | MHC.PC.OV ---
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 Accompanied by: Self / Same As Patient Allergies No Known Allergies [No Known Allergies*] Allergy (Verified 07/26/23 11:02) Medication List - Last Reconciled 07/26/23 by Deejay Meza MD cholecalciferol (vitamin D3) 50 mcg PO DAILY 90 days gabapentin 600 mg PO BEDTIME gabapentin 600 mg PO BEDTIME levothyroxine 100 mcg PO DAILY 90 days pravastatin 40 mg PO DAILY topiramate 25 mg PO BEDTIME Tobacco use date assessed: 07/26/23 Fall risk assessment: No Falls in past year Last assessed Fall Risk: 07/26/23 Dental Screening Dental Screen Date: 07/26/23 Did you have a dental visit in the last 12 months?: Yes Did you have a dental problem in the last 6 months where you did not have access to dental care?: No Was dental information given to patient?: Patient has dentist HPI hyperlipidemia, hypothyroidism, IFG HPI Details Patient comes in today for her follow up visit States that she feels well and has been working out regularly with no acute issues States that she will be going on vacation with her cousins next week and is excited about their upcoming trip She denies any headaches or dizziness Denies any chest pains, no SOB No nausea/vomiting, no abdominal pain No change in bowel habits noted States that her chronic neck pain and joint pains have been mostly manageable/controlled lately Had her follow up labs done last week - to discuss her results [facility] Medical History Arthritis Hypothyroidism PONV (postoperative nausea and vomiting) Celiac disease Overweight (BMI 25.0-29.9) Reactive depression Anxiety Primary osteoarthritis of right knee Insomnia Migraine Dystonia Lumbar degenerative disc disease Impaired fasting glucose Colon cancer screening Cervical spondylosis Vitamin D deficiency Acquired hypothyroidism Pure hypercholesterolemia Benign essential hypertension Surgical History History of arthroplasty of right knee (~10/24/20) H/O esophagogastroduodenoscopy H/O colonoscopy History of hand surgery History of lumbar surgery History of arthroplasty of left knee Family History Father Cancer Mother CRD (chronic renal disease) CVD (cardiovascular disease) Myocardial infarction Sister Sarcoma Sister Melanoma Social History Housing: Apartment Alcohol intake: current Alcohol intake frequency: does not drink Patient Tobacco Use Status: Never used Tobacco e-Cigarette/Vaping Use: Never Used Second Hand Smoke Exposure: Yes service: No Current occupational status: employed and retired Current occupational exposures/hazards: No Cognitive needs: No Hearing needs: No Vision needs: No Questionnaire PHQ-9 Over the last 2 weeks, how often have you been bothered by any of the following problems? 1. Little interest or pleasure in doing things: not at all 2. Feeling down, depressed, or hopeless: not at all 3. Trouble falling or staying asleep, or sleeping too much: not at all 4. Feeling tired or having little energy: not at all 5. Poor appetite or overeating: not at all 6. Feeling bad about yourself - or that you are a failure or have let yourself or your family down: not at all 7. Trouble concentrating on things, such as reading the newspaper or watching television: not at all 8. Moving or speaking so slowly that other people could have noticed. Or the opposite - being so fidgety or restless that you have been moving around a lot more than usual: not at all 9. Thoughts that you would be better off or of hurting yourself in some way: not at all Total score: 0 Depression Screening Interpretation: Negative Depression Screening Done: Yes 52581 - PHQ-9 Billing: Yes Source: Developed by Drs. Greg Manriquez, Dorothy Paula, Mckinley Renee and colleagues, with an educational jero from [employer]. Thrive Questionnaire Date Thrive assessed: 07/26/23 I am a: Patient What is your living situation today?: I have a steady place to live Within the past 12 months, did the food you bought not last and you didn't have the money to get more?: Never true Within the past 12 months, did you worry whether your food would run out before you got money to buy more?: Never true Do you have trouble paying for medicines?: No Do you have trouble getting transportation to medical appointments?: No Do you have trouble paying your heating and electricity bill?: No Do you have trouble taking care of your child, family member or friend?: No Do you have trouble with day-to-day activities such as bathing, preparing meals, shopping, managing finances, etc.?: No Are you currently unemployed and looking for a job?: No Are you interested in more education?: No Please select the resources that you would like help with: None Currently or been in a relationship where the following occur: no concerns reported THRIVE Score: 0 AUDIT C Alcohol Use Questionnaire (AUDIT-C) 1. How often do you have a drink containing alcohol?: Never 3. How often do you have six or more drinks on one occasion?: Never Total Score: 0 Score Reviewed/Action Taken: Yes LONG-7 AMB Questionnaire LONG-7 Date LONG - 7 assessed: 07/26/23 Feeling nervous, anxious, or on edge: 0 = Not at all Not being able to stop or control worryin = Not at all Worrying too much about different things: 0 = Not at all Trouble relaxin = Not at all Being so restless that it is hard to sit still: 0 = Not at all Becoming easily annoyed or irritable: 0 = Not at all Feeling afraid as if something awful might happen: 0 = Not at all Total LONG-7 score (0-4 normal; 5-9 mild; 10-14 moderate; 15-21 severe): 0 Source: Developed by Drs. Greg Manriquez, Dorothy Paula, Mckinley Renee and colleagues, with an educational jero from [employer]. Review of Systems Const Reports difficulty sleeping, Denies fatigue, Denies fever(s) and Denies headache(s) ENT Denies dysphagia, Denies dizziness, Denies otalgia, Denies headache(s), Reports neck pain (has right-sided cervical dystonia), Denies odynophagia and Denies sore throat Card Denies chest pain, Denies palpitations and Denies dyspnea Resp Denies cough and Denies dyspnea GI Denies abdominal pain, Denies constipation, Denies dysphagia, Denies heartburn, Denies diarrhea, Denies nausea, Denies odynophagia and Denies vomiting Denies difficulty voiding, Denies nocturia and Denies dysuria Musc Details: (+) recurrent pain over the right arm and right leg, often with increased activity or exertion Reports back pain (on and off over the lower back), Reports neck pain (has right-sided cervical dystonia) and Reports radiating pain into limb (into the right arm at times) Skin/Breast Denies rash Neuro Denies dizziness and Denies headache(s) Endo Denies fatigue and Denies palpitations Physical exam (Primary Care) Vital Signs: Last Vital Signs Pulse 91 07/26/23 10:09 BP 118/82 07/26/23 10:09 Pulse Ox 97 07/26/23 10:09 Oxygen Delivery Method Room Air 07/26/23 10:09 BMI result Body Mass Index 25.6 Tobacco/Smoking Status: Tobacco use Status Tobacco use date assessed 07/26/23 07/26/23 10:10 Patient Tobacco Use Status Never used Tobacco 07/26/23 10:10 e-Cigarette/Vaping Use Never Used 07/26/23 10:10 PHQ-9: PHQ-9 Score PHQ-9: Total score 0 07/26/23 11:20 Depression Screening Interpretation: Negative Thrive Assessment: Date of Thrive Assessment Date Thrive assessed 07/26/23 07/26/23 10:10 Currently or been in a relationship where the following occur: no concerns reported Const General: no acute distress and alert HENMT Ears: TM's normal bilaterally and EAC's normal Throat: Yes posterior oropharynx normal and Yes tonsils normal (no TP congestion noted) Neck Neck: Yes no lymphadenopathy and Yes tender Thyroid: Thyroid normal Resp Auscultation: clear to auscultation bilaterally, no rales and no wheezes Cardio Rate: regular rate Rhythm: regular rhythm Heart sounds: no murmurs GI Palpation (GI): Soft to palpation and nontender Auscultation: normal bowel sounds General: Yes no CVA tenderness Back/Spine/Pelvis Back: no CVA tenderness Cervical Spine: cervical muscular tenderness (more on the right side) and Cervical spine tenderness (mild) Thoracic/Lumbar Spine: lumbar spinal tenderness Skin Rashes: no rashes Extrem General: Yes no clubbing, cyanosis or edema Right lower extremity: knee Details: tenderness; no swelling Results Reviewed Results Reviewed: Laboratory Tests 07/17/23 07/17/23 10:00 10:01 WBC 7.0 Hgb 12.8 Hct 40.3 Plt Count 250 D Sodium 141 Potassium 3.7 Creatinine 0.84 Estimated GFR > 60 Fasting Glucose 123 H Hemoglobin A1c % 5.4 Calcium 9.1 D Iron 51 TIBC 300 % Saturation 17 AST 18 ALT 13 Triglycerides 89 Cholesterol 182 LDL Cholesterol, Calc 105 H HDL Cholesterol 60 TSH 0.05 L Free T4 1.11 Ur Specific [place] >= 1.030 H Urine Protein Trace Urine Glucose (UA) Negative Urine Blood Small (1+) H Urine Nitrite Negative Ur Leukocyte Esterase Small (1+) H Assessment and Plan Assessment & Plan (1) Pure hypercholesterolemia: Code(s): E78.00 - Pure hypercholesterolemia, unspecified Plan: Results of her labs done last week reviewed and discussed with patient - advised that her LDL and total cholesterol levels have increased slightly from previous Reinforced low cholesterol diet - she is advised to take a closer look into her recent diet to see if there is anywhere that she can try to improve on Continue Pravastatin 40 mg QD Will recheck her labs and fasting lipids in 6 months for follow up (2) Benign essential hypertension: Code(s): I10 - Essential (primary) hypertension Plan: Reinforced low sodium diet - goal is systolic BP of 120 mm or less Continue Lisinopril 5 mg QD (3) Acquired hypothyroidism: Code(s): E03.9 - Hypothyroidism, unspecified Plan: Her TSH level is still low but her free T4 level remains normal on her recent labs Continue Levothyroxine 100 mcg QD Will recheck her TFTs in 6 months for follow up (4) Migraine: Code(s): G43.909 - Migraine, unspecified, not intractable, without status migrainosus Qualifiers: Intractability: not intractable Migraine type: unspecified Status migrainosus presence: without status migrainosus Qualified Code(s): G43.909 - Migraine, unspecified, not intractable, without status migrainosus Plan: Stable on prophylactic Rx Continue Topiramate 25 mg QHS and Sumatriptan 50 mg PRN Reinforced avoidance of migraine triggers Follow up with neurology as scheduled (5) Cervical spondylosis: Code(s): M47.812 - Spondylosis without myelopathy or radiculopathy, cervical region Plan: Cervical spine x-rays done back on 02/12/2019 showed (+) multilevel degenerative changes with a mild 3 mm anterior subluxation of C3 with respect to C4 that is slightly increased from previous C-spine MRI done in 03/2012 S/P RFA x 2 with pain management over the past couple of years - reports (+) significant relief of her neck symptoms initially but symptoms have since regressed EMG & NCV done back in March 2022 revealed findings consistent with mild chronic right C5-C6 radiculopathy; nerve conduction studies came back completely normal Had C6-C7 fluoroscopy-guided parasagittal epidural steroid injection x 2 a few months ago with (+) symptomatic relief Follow up with Pain Management as scheduled (6) Dystonia: Comment: Has cervical dystonia Code(s): G24.9 - Dystonia, unspecified Plan: Continue Gabapentin 300 mg 2 capsules (600 mg) daily at bedtime Follow up with neurology as scheduled (7) Lumbar degenerative disc disease: Comment: S/P lumbar decompression [place] [address] Zapata, with (+) significant relief of her acute lower back symptoms Code(s): M51.36 - Other intervertebral disc degeneration, lumbar region Plan: Reinforced activity and weight-lifting restrictions (8) Thrombocytosis: Code(s): D47.3 - Essential (hemorrhagic) thrombocythemia Plan: Improved; platelet count remained normal on her labs done last week Was possibly due to reactive thrombocytosis and related to her anemia back then Will continue to monitor her platelet count and CBC regularly (9) Anemia: Code(s): D64.9 - Anemia, unspecified Qualifiers: Anemia type: unspecified type Qualified Code(s): D64.9 - Anemia, unspecified Plan: Her H/H have improved to 12.8/40.3 on her recent labs and are now normal Continue OTC Multivitamins with Iron daily Will continue to monitor her CBC regularly (10) Lymph node enlargement: Code(s): R59.9 - Enlarged lymph nodes, unspecified Plan: Soft tissue US of the nodule over her right TMJ area done a few months ago revealed a hypoechoic 1.8 cm lesion anterior to right ear that is likely a small lymph node but is atypical-appearing. A fine-needle biopsy of this nodule can be performed under ultrasound if desired. There is a similar benign-appearing lymph node is seen anterior to left ear for comparison. It has typical lymph node appearance Patient would like to hold off on biopsy at this time and continue to observe her right-sided jaw nodule for now but will call for orders for Bx if she changes her mind about this (11) Impaired fasting glucose: Code(s): R73.01 - Impaired fasting glucose Plan: HgbA1c was normal at 5.4% on her labs done last week; was also normal at 5.3% and 5.6% when previously checked Reinforced low calorie diet/exercise as tolerated (12) Vitamin D deficiency: Code(s): E55.9 - Vitamin D deficiency, unspecified Plan: Continue Vitamin D3 2000 units QD She is also taking a combined Vitamin D and Calcium tablets, which contains Vitamin D of around 400 to 600 units (13) Primary osteoarthritis of right knee: Code(s): M17.11 - Unilateral primary osteoarthritis, right knee Plan: S/P right knee arthroplasty in October 2020 Follow up with orthopedics ([facility]) as scheduled (14) Neuropathy: Comment: EMG & NCV done on 10/31/2017 revealed (+) moderately severe right peroneal neuropathy and 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 Code(s): G62.9 - Polyneuropathy, unspecified Plan: States that Gabapentin helps with her symptoms Still has recurrent right leg pain/symptoms Follow up with neurology as scheduled (15) Insomnia: Code(s): G47.00 - Insomnia, unspecified Qualifiers: Insomnia type: unspecified Qualified Code(s): G47.00 - Insomnia, unspecified Plan: Sleep hygiene reinforced States that Gabapentin at bedtime seems to have helped previously but not anymore lately Reports that she is still waking up at least 2 to 3 times a night at times for no particular reason Continue OTC Melatonin Q HS PRN (16) Anxiety: Code(s): F41.9 - Anxiety disorder, unspecified Plan: Feels that she is still doing well with her anxiety and no longer has to take Hydroxyzine Used to do counseling with [facility] but states that she has not needed to do so in a while now (17) Reactive depression: Code(s): F32.9 - Major depressive disorder, single episode, unspecified Plan: Improved - is no longer taking Mirtazapine and feels that she is doing well (18) Overweight (BMI 25.0-29.9): Code(s): E66.3 - Overweight Plan: Reinforced diet/exercise as tolerated/lose weight Plan Follow up in 6 months Orders: Orders Comprehensive [place]. Panel Fast 6 Months E78.00 - Pure hypercholesterolemia, unspecified UA CC w/rflx Micro + Cult 6 Months R30.0 - Dysuria Vitamin D 25-OH Total 6 Months E55.9 - Vitamin D deficiency, unspecified Thyroid Stimulating Hormone 6 Months E03.9 - Hypothyroidism, unspecified Free T4 (Free Thyroxine) 6 Months E03.9 - Hypothyroidism, unspecified Complete Blood Count Auto Diff 6 Months D64.9 - Anemia, unspecified Lipid Panel 6 Months E78.00 - Pure hypercholesterolemia, unspecified Hemoglobin A1c 6 Months R73.01 - Impaired fasting glucose Coding Level of Care Code Est Pt Level 4 (00804) Diagnoses Pure hypercholesterolemia E78.00 Benign essential hypertension I10 Acquired hypothyroidism E03.9 Migraine without status migrainosus, not intractable, unspecified migraine type G43.909 Intractability: not intractable Migraine type: unspecified Status migrainosus presence: without status migrainosus Cervical spondylosis M47.812 Dystonia G24.9 Lumbar degenerative disc disease M51.36 Thrombocytosis D47.3 Anemia, unspecified type D64.9 Anemia type: unspecified type Lymph node enlargement R59.9 Impaired fasting glucose R73.01 Vitamin D deficiency E55.9 Primary osteoarthritis of right knee M17.11 Neuropathy G62.9 Insomnia, unspecified type G47.00 Insomnia type: unspecified Anxiety F41.9 Reactive depression F32.9 Overweight (BMI 25.0-29.9) E66.3
[2023-07-26 10:09] VITALS: BP 118/82; PULSE 91; O2SAT 97; BMI 25.6
== END 2023-07-26 11:15 | disposition home or self-care (01) ==
PROVIDERS: PCP Internal Medicine; Visit Provider Internal Medicine
DX: E78.00 Pure hypercholesterolemia, unspecified (principal); I10 Essential (primary) hypertension; E03.9 Hypothyroidism, unspecified; G43.909 Migraine, unspecified, not intractable, without status migrainosus; M47.812 Spondylosis without myelopathy or radiculopathy, cervical region; G24.9 Dystonia, unspecified; M51.36 Other intervertebral disc degeneration, lumbar region; D64.9 Anemia, unspecified; R59.9 Enlarged lymph nodes, unspecified; R73.01 Impaired fasting glucose; E55.9 Vitamin D deficiency, unspecified; M17.11 Unilateral primary osteoarthritis, right knee
CPT/HCPCS: 99214

== ENCOUNTER 2024-01-23 09:51 | Outpatient (REF) | payer BC, MEDICARE, SELFPAY ==
[2024-01-23 10:43] LABS: Basophils Absolute Auto 0.1 X10*3/uL (0.0-0.2); Basophils Percent Auto 1.2 % (0-2); Eosinophils Absolute Auto 0.1 X10*3/uL (0.0-0.4); Eosinophils Percent Auto 2.1 % (0-4); Hematocrit 39.9 % (37.0-47.0); Hemoglobin 12.7 g/dl (12.0-16.0); Imm Gran Abs Auto 0.01 X10*3/uL (0.00-0.03); Imm Gran Pct Auto 0.2 % (0.0-0.4); Lymphocytes Absolute Auto 1.8 X10*3/uL (1.2-4.9); Lymphocytes Percent Auto 31.8 % (20-40); MANUAL DIFF FLAG NO; Mean Corpuscular HGB Conc 31.8 g/dl (31.0-35.0); Mean Corpuscular Volume 84.9 fL (80.0-98.0); Mean Platelet Volume 9.8 fL (9.4-12.3); Monocytes Absolute Auto 0.6 X10*3/uL (0.1-1.2); Monocytes Percent Auto 9.9 % (2-11); Neutrophils Absolute Auto 3.1 x10*3/uL (2.0-8.3); Neutrophils Percent Auto 54.8 % (45-73); Platelet Count 330 X10*3/uL (160-400); Red Cell Distribution Width 15.6 % (11.0-16.0); White Blood Count 5.6 X10*3/uL (4.8-10.8)
[2024-01-23 10:47] LABS: Appearance Urine Clear; Color Urine Yellow; Glucose Urine UA Negative (Negative); Leukocyte Esterase Urine Trace (Negative); Nitrite Urine Negative (Negative); PH 5.5 (5.0-9.0); Specific Gravity - Urine 1.015 (1.005-1.025); UMIC TRIGGER UACC YES; Urine Blood Trace (Negative); Urine Ketones Negative (Negative); Urine Protein Negative (Neg-Trace)
[2024-01-23 10:51] LABS: Bacteria Urine None Seen (None Seen); Hyaline Casts Urine 0-2 /LPF (0-2); Squamous Epithelial Cell Urine 0-2 /HPF (0-2); WBC Urine 0-5 /HPF (0-5)
[2024-01-23 11:03] LABS: Alanine Aminotransferase 16 U/L (0-31); Alkaline Phosphatase 74 U/L (39-117); Anion Gap 10 (12-20); Aspartate Amino Transferase 15 U/L (5-31); Bilirubin Total 0.5 mg/dL (0.0-1.0); Blood Urea Nitrogen 9 mg/dL (9-16); Calcium 9.4 mg/dL (8.4-10.2); Carbon Dioxide 25 mmol/L (22-29); Chloride 111 mmol/L (96-108); Cholesterol 157 mg/dL (<200); Estimated Glomerular Filt Rate > 60; Glucose Fasting 106 mg/dL (60-99); HDL Cholesterol 62 mg/dL (>40); LDL Cholesterol Calculated 85 mg/dL (<100); Potassium 3.6 mmol/L (3.3-5.1); Sodium 142 mmol/L (135-145); Triglycerides 53 mg/dL (<150)
[2024-01-23 11:22] LABS: Free T4 (Free Thyroxine) 1.09 ng/dL (0.71-1.85); Thyroid Stimulating Hormone 0.03 uIU/mL (0.32-4.0); Vitamin D 25-OH Total 42.5 ng/mL (>30)
[2024-01-23 11:26] LABS: Estimated Average Glucose 117 mg/dL; Hemoglobin A1c % 5.7 % (<6.0)
== END 2024-01-23 09:52 | disposition home or self-care (01) ==
LOC: HO.10HDL 09:51
PROVIDERS: Visit Provider Internal Medicine
DX: E78.00 Pure hypercholesterolemia, unspecified (principal); E55.9 Vitamin D deficiency, unspecified; D64.9 Anemia, unspecified; R73.01 Impaired fasting glucose; E03.9 Hypothyroidism, unspecified
CPT/HCPCS: 36415; 80053; 80061; 81001; 82306; 83036; 84439; 84443; 85025

== ENCOUNTER 2024-01-31 10:06 | Outpatient (AMB) | payer MEDICARE, BC, SELFPAY ==
[2024-01-31 10:08] VITALS: BP 102/80; PULSE 71; O2SAT 98; BMI 25.1
--- NOTE | 2024-01-31 10:08 | MHC.PC.OV ---
Vital Signs 01/31/24 10:08 Height 5 ft 4 in Weight 146 lb 2 oz BMI 25.1 BP 102/80 Blood Pressure Location Lt brachial Position Sitting Pulse 71 Pulse Source Pulse Oximeter Pulse Oximetry (%) 98 Oxygen Delivery Method Room Air Intake Visit Reasons: 6mth f/u Electronic Development Technician Required: No Accompanied by: Self / Same As Patient Allergies No Known Allergies [No Known Allergies*] Allergy (Verified 01/31/24 11:00) Medication List - Last Reconciled 01/31/24 by Deejay Meza MD cholecalciferol (vitamin D3) 50 mcg PO DAILY 90 days gabapentin 600 mg PO BEDTIME levothyroxine 100 mcg PO DAILY 90 days pravastatin 40 mg PO DAILY topiramate 25 mg PO BEDTIME Tobacco use date assessed: 01/31/24 Fall risk assessment: No Falls in past year Last assessed Fall Risk: 01/31/24 Dental Screening Dental Screen Date: 01/31/24 Did you have a dental visit in the last 12 months?: Yes Did you have a dental problem in the last 6 months where you did not have access to dental care?: No Was dental information given to patient?: Patient has dentist HPI 6mth f/u HPI Details Patient comes in today for her follow up visit States that she feels okay She denies any headaches or dizziness Denies any chest pains, no SOB No nausea/vomiting, no abdominal pain No change in bowel habits noted States that her chronic neck pain and joint pains have been mostly manageable/controlled She had her follow up labs done last week - to discuss her results [facility] Medical History Arthritis Hypothyroidism PONV (postoperative nausea and vomiting) Celiac disease Overweight (BMI 25.0-29.9) Reactive depression Anxiety Primary osteoarthritis of right knee Insomnia Migraine Dystonia Lumbar degenerative disc disease Impaired fasting glucose Colon cancer screening Cervical spondylosis Vitamin D deficiency Acquired hypothyroidism Pure hypercholesterolemia Benign essential hypertension Surgical History History of arthroplasty of right knee (~10/24/20) H/O esophagogastroduodenoscopy H/O colonoscopy History of hand surgery History of lumbar surgery History of arthroplasty of left knee Family History Father Cancer Mother CRD (chronic renal disease) CVD (cardiovascular disease) Myocardial infarction Sister Sarcoma Sister Melanoma Social History Housing: Apartment Alcohol intake: current Alcohol intake frequency: does not drink Patient Tobacco Use Status: Never used Tobacco e-Cigarette/Vaping Use: Never Used Second Hand Smoke Exposure: Yes service: No Current occupational status: employed and retired Current occupational exposures/hazards: No Cognitive needs: No Hearing needs: No Vision needs: No Questionnaire PHQ-9 Over the last 2 weeks, how often have you been bothered by any of the following problems? 1. Little interest or pleasure in doing things: not at all 2. Feeling down, depressed, or hopeless: not at all 3. Trouble falling or staying asleep, or sleeping too much: not at all 4. Feeling tired or having little energy: not at all 5. Poor appetite or overeating: not at all 6. Feeling bad about yourself - or that you are a failure or have let yourself or your family down: not at all 7. Trouble concentrating on things, such as reading the newspaper or watching television: not at all 8. Moving or speaking so slowly that other people could have noticed. Or the opposite - being so fidgety or restless that you have been moving around a lot more than usual: not at all 9. Thoughts that you would be better off or of hurting yourself in some way: not at all Total score: 0 Depression Screening Interpretation: Negative Depression Screening Done: Yes [id number] - PHQ-9 Billing: Yes Source: Developed by Drs. Greg Manriquez, Dorothy Paula, Mckinley Renee and colleagues, with an educational jero from [employer]. Thrive Questionnaire Date Thrive assessed: 01/31/24 I am a: Patient What is your living situation today?: I have a steady place to live Within the past 12 months, did the food you bought not last and you didn't have the money to get more?: Never true Within the past 12 months, did you worry whether your food would run out before you got money to buy more?: Never true Do you have trouble paying for medicines?: No Do you have trouble getting transportation to medical appointments?: No Do you have trouble paying your heating and electricity bill?: No Do you have trouble taking care of your child, family member or friend?: No Do you have trouble with day-to-day activities such as bathing, preparing meals, shopping, managing finances, etc.?: No Are you currently unemployed and looking for a job?: No Are you interested in more education?: No Please select the resources that you would like help with: None Currently or been in a relationship where the following occur: No concerns reported THRIVE Score: 0 AUDIT C Alcohol Use Questionnaire (AUDIT-C) 1. How often do you have a drink containing alcohol?: Never 3. How often do you have six or more drinks on one occasion?: Never Total Score: 0 Score Reviewed/Action Taken: Yes LONG-7 AMB Questionnaire LONG-7 Date LONG - 7 assessed: 01/31/24 Feeling nervous, anxious, or on edge: 0 = Not at all Not being able to stop or control worryin = Not at all Worrying too much about different things: 0 = Not at all Trouble relaxin = Not at all Being so restless that it is hard to sit still: 0 = Not at all Becoming easily annoyed or irritable: 0 = Not at all Feeling afraid as if something awful might happen: 0 = Not at all Total LONG-7 score (0-4 normal; 5-9 mild; 10-14 moderate; 15-21 severe): 0 Source: Developed by Drs. Greg Manriquez, Dorothy Paula, Mckinley Renee and colleagues, with an educational jero from [employer]. Review of Systems Const Reports difficulty sleeping (but better lately), Denies fatigue, Denies fever(s) and Denies headache(s) ENT Denies dysphagia, Denies dizziness, Denies otalgia, Denies headache(s), Reports neck pain (has right-sided cervical dystonia - chronic ), Denies odynophagia and Denies sore throat Card Denies chest pain, Denies palpitations and Denies dyspnea Resp Denies cough and Denies dyspnea GI Denies abdominal pain, Denies constipation, Denies dysphagia, Denies heartburn, Denies diarrhea, Denies nausea, Denies odynophagia and Denies vomiting Denies difficulty voiding, Denies nocturia, Denies dysuria and Denies urinary urgency Musc Details: (+) recurrent pain over the right arm and right leg, often with increased activity or exertion Reports back pain (on and off over the lower back), Reports neck pain (has right-sided cervical dystonia - chronic ) and Reports radiating pain into limb (into the right arm at times) Skin/Breast Denies rash Neuro Denies dizziness and Denies headache(s) Endo Denies fatigue and Denies palpitations Physical exam (Primary Care) Vital Signs: Last Vital Signs Pulse 71 01/31/24 10:08 BP 102/80 01/31/24 10:08 Pulse Ox 98 01/31/24 10:08 Oxygen Delivery Method Room Air 01/31/24 10:08 BMI result Body Mass Index 25.1 Tobacco/Smoking Status: Tobacco use Status Tobacco use date assessed 01/31/24 01/31/24 10:14 Patient Tobacco Use Status Never used Tobacco 01/31/24 10:14 e-Cigarette/Vaping Use Never Used 01/31/24 10:14 PHQ-9: PHQ-9 Score PHQ-9: Total score 0 01/31/24 11:06 Depression Screening Interpretation: Negative Thrive Assessment: Date of Thrive Assessment Date Thrive assessed 01/31/24 01/31/24 10:14 Currently or been in a relationship where the following occur: No concerns reported Const General: no acute distress and alert HENMT Ears: TM's normal bilaterally and EAC's normal Throat: Yes posterior oropharynx normal and Yes tonsils normal (no TP congestion noted) Neck Neck: Yes no lymphadenopathy and Yes tender Thyroid: Thyroid normal Resp Auscultation: clear to auscultation bilaterally, no rales and no wheezes Cardio Rate: regular rate Rhythm: regular rhythm Heart sounds: no murmurs GI Palpation (GI): Soft to palpation and nontender Auscultation: normal bowel sounds General: Yes no CVA tenderness Back/Spine/Pelvis Back: no CVA tenderness Cervical Spine: cervical muscular tenderness (more on the right side) and Cervical spine tenderness (mild) Thoracic/Lumbar Spine: lumbar spinal tenderness Skin Rashes: no rashes Extrem General: Yes no clubbing, cyanosis or edema Right lower extremity: knee Details: tenderness; no swelling Results Reviewed Results Reviewed: Laboratory Tests 09/10/24 10:00 WBC 5.6 Hgb 12.7 Hct 39.9 Plt Count 330 D Sodium 142 Potassium 3.6 Creatinine 0.71 Estimated GFR > 60 Fasting Glucose 106 H Hemoglobin A1c % 5.7 Calcium 9.4 AST 15 ALT 16 Triglycerides 53 Cholesterol 157 LDL Cholesterol, Calc 85 HDL Cholesterol 62 25-OH Vitamin D Total 42.5 TSH 0.03 L Free T4 1.09 Ur Specific [place] 1.015 Urine Protein Negative Urine Glucose (UA) Negative Urine Blood Trace H Urine Nitrite Negative Ur Leukocyte Esterase Trace H Assessment and Plan Assessment & Plan (1) Pure hypercholesterolemia: Code(s): E78.00 - Pure hypercholesterolemia, unspecified Plan: Results of her labs done last week reviewed and discussed with patient - advised that her LDL and total cholesterol levels have improved slightly from previous Reinforced low cholesterol diet Continue Pravastatin 40 mg QD Will recheck her labs and fasting lipids in 6 months for follow up (2) Benign essential hypertension: Code(s): I10 - Essential (primary) hypertension Plan: Reinforced low sodium diet - goal is systolic BP of 120 mm or less Continue Lisinopril 5 mg QD (3) Acquired hypothyroidism: Code(s): E03.9 - Hypothyroidism, unspecified Plan: Her TSH level is still low but her free T4 level remains normal on her recent labs Continue Levothyroxine 100 mcg QD Will recheck her TFTs in 6 months for follow up (4) Migraine: Code(s): G43.909 - Migraine, unspecified, not intractable, without status migrainosus Qualifiers: Intractability: not intractable Migraine type: unspecified Status migrainosus presence: without status migrainosus Qualified Code(s): G43.909 - Migraine, unspecified, not intractable, without status migrainosus Plan: Stable on prophylactic Rx Continue Topiramate 25 mg QHS and Sumatriptan 50 mg PRN Reinforced avoidance of migraine triggers Follow up with neurology as scheduled (5) Cervical spondylosis: Code(s): M47.812 - Spondylosis without myelopathy or radiculopathy, cervical region Plan: Cervical spine x-rays done back on 02/12/2019 showed (+) multilevel degenerative changes with a mild 3 mm anterior subluxation of C3 with respect to C4 that is slightly increased from previous C-spine MRI done in 03/2012 S/P RFA x 2 with pain management over the past couple of years - reports (+) significant relief of her neck symptoms initially but symptoms have since regressed EMG & NCV done back in March 2022 revealed findings consistent with mild chronic right C5-C6 radiculopathy; nerve conduction studies came back completely normal Had C6-C7 fluoroscopy-guided parasagittal epidural steroid injection x 2 a few months ago with (+) symptomatic relief Follow up with Pain Management as scheduled (6) Dystonia: Comment: Has cervical dystonia Code(s): G24.9 - Dystonia, unspecified Plan: Continue Gabapentin 300 mg 2 capsules (600 mg) daily at bedtime Follow up with neurology as scheduled (7) Lymph node enlargement: Code(s): R59.9 - Enlarged lymph nodes, unspecified Plan: Soft tissue US of the nodule over her right TMJ area done last year revealed a hypoechoic 1.8 cm lesion anterior to right ear that is likely a small lymph node but is atypical-appearing. A fine-needle biopsy of this nodule can be performed under ultrasound if desired. There is a similar benign-appearing lymph node is seen anterior to left ear for comparison. It has typical lymph node appearance Patient would like to hold off on biopsy at this time and continue to observe her right-sided jaw nodule for now but will call for orders for Bx if she changes her mind about this (8) Lumbar degenerative disc disease: Comment: S/P lumbar decompression [place] [address] Zapata, with (+) significant relief of her acute lower back symptoms Code(s): M51.36 - Other intervertebral disc degeneration, lumbar region Plan: Reinforced activity and weight-lifting restrictions (9) Thrombocytosis: Code(s): D47.3 - Essential (hemorrhagic) thrombocythemia Plan: Improved; her platelet count has remained normal on her labs done last week This was possibly due to reactive thrombocytosis and related to her anemia back then Will continue to monitor her platelet count and CBC regularly (10) Anemia: Code(s): D64.9 - Anemia, unspecified Qualifiers: Anemia type: unspecified type Qualified Code(s): D64.9 - Anemia, unspecified Plan: Her H/H have remained normal at 12.7/39.9 on her recent labs Continue OTC Multivitamins with Iron daily Will continue to monitor her CBC regularly (11) Impaired fasting glucose: Code(s): R73.01 - Impaired fasting glucose Plan: HgbA1c was normal at 5.7% on her labs done last week; was also normal at 5,4%, 5.3% and 5.6% when previously checked Reinforced low calorie diet/exercise as tolerated (12) Vitamin D deficiency: Code(s): E55.9 - Vitamin D deficiency, unspecified Plan: Continue Vitamin D3 2000 units QD She is also taking a combined Vitamin D and Calcium tablets, which contains Vitamin D of around 400 to 600 units (13) Primary osteoarthritis of right knee: Code(s): M17.11 - Unilateral primary osteoarthritis, right knee Plan: S/P right knee arthroplasty in October 2020 Follow up with orthopedics ([facility]) as scheduled (14) Neuropathy: Comment: EMG & NCV done on 10/31/2017 revealed (+) moderately severe right peroneal neuropathy and 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 Code(s): G62.9 - Polyneuropathy, unspecified Plan: States that Gabapentin helps with her symptoms Still has recurrent right leg pain/symptoms Follow up with neurology as scheduled (15) Insomnia: Code(s): G47.00 - Insomnia, unspecified Qualifiers: Insomnia type: unspecified Qualified Code(s): G47.00 - Insomnia, unspecified Plan: Sleep hygiene reinforced States that Gabapentin at bedtime seems to have helped previously but not anymore lately Reports that she is still waking up at least 2 to 3 times a night at times for no particular reason Continue OTC Melatonin Q HS PRN (16) Anxiety: Code(s): F41.9 - Anxiety disorder, unspecified Plan: Feels that she is still doing well with her anxiety and no longer has to take Hydroxyzine She used to get counseling with [facility] but states that she has not needed to do so in a while now (17) Reactive depression: Code(s): F32.9 - Major depressive disorder, single episode, unspecified Plan: Improved - she is no longer taking Mirtazapine and feels that she is doing well Plan Follow up in 6 months Orders: Orders Free T4 (Free Thyroxine) 6 Months E03.9 - Hypothyroidism, unspecified Complete Blood Count Auto Diff 6 Months D64.9 - Anemia, unspecified UA CC w/rflx Micro + Cult 6 Months R30.0 - Dysuria Lipid Panel 6 Months E78.00 - Pure hypercholesterolemia, unspecified Comprehensive [place]. Panel Fast 6 Months E78.00 - Pure hypercholesterolemia, unspecified Thyroid Stimulating Hormone 6 Months E03.9 - Hypothyroidism, unspecified Vitamin D 25-OH Total 6 Months E55.9 - Vitamin D deficiency, unspecified Hemoglobin A1c 6 Months R73.01 - Impaired fasting glucose Coding Level of Care Code Est Pt Level 4 (21774) Diagnoses Pure hypercholesterolemia E78.00 Benign essential hypertension I10 Acquired hypothyroidism E03.9 Migraine without status migrainosus, not intractable, unspecified migraine type G43.909 Intractability: not intractable Migraine type: unspecified Status migrainosus presence: without status migrainosus Cervical spondylosis M47.812 Dystonia G24.9 Lymph node enlargement R59.9 Lumbar degenerative disc disease M51.36 Thrombocytosis D47.3 Anemia, unspecified type D64.9 Anemia type: unspecified type Impaired fasting glucose R73.01 Vitamin D deficiency E55.9 Primary osteoarthritis of right knee M17.11 Neuropathy G62.9 Insomnia, unspecified type G47.00 Insomnia type: unspecified Anxiety F41.9 Reactive depression F32.9
== END 2024-01-31 11:18 | disposition home or self-care (01) ==
PROVIDERS: PCP Internal Medicine; Visit Provider Internal Medicine
DX: E78.00 Pure hypercholesterolemia, unspecified (principal); I10 Essential (primary) hypertension; D47.3 Essential (hemorrhagic) thrombocythemia; E03.9 Hypothyroidism, unspecified; G43.909 Migraine, unspecified, not intractable, without status migrainosus; M47.812 Spondylosis without myelopathy or radiculopathy, cervical region; G24.9 Dystonia, unspecified; R59.9 Enlarged lymph nodes, unspecified; M51.36 Other intervertebral disc degeneration, lumbar region; D64.9 Anemia, unspecified; R73.01 Impaired fasting glucose; E55.9 Vitamin D deficiency, unspecified; M17.11 Unilateral primary osteoarthritis, right knee; G62.9 Polyneuropathy, unspecified; G47.00 Insomnia, unspecified; F41.9 Anxiety disorder, unspecified; F32.9 Major depressive disorder, single episode, unspecified

== ENCOUNTER → 2024-01-31 10:06 | Outpatient (BNVA) | payer BC, MEDICARE, SELFPAY | PROVIDERS: PCP Internal Medicine; Visit Provider Internal Medicine | DX: E78.00 Pure hypercholesterolemia, unspecified (principal); I10 Essential (primary) hypertension; E03.9 Hypothyroidism, unspecified; G43.909 Migraine, unspecified, not intractable, without status migrainosus; M47.812 Spondylosis without myelopathy or radiculopathy, cervical region; G24.9 Dystonia, unspecified; R59.9 Enlarged lymph nodes, unspecified; M51.36 Other intervertebral disc degeneration, lumbar region; D47.3 Essential (hemorrhagic) thrombocythemia; D64.9 Anemia, unspecified; R73.01 Impaired fasting glucose; E55.9 Vitamin D deficiency, unspecified; G62.9 Polyneuropathy, unspecified; G47.00 Insomnia, unspecified; F41.9 Anxiety disorder, unspecified; F32.9 Major depressive disorder, single episode, unspecified; Z79.899 Other long term (current) drug therapy; Z96.651 Presence of right artificial knee joint | CPT/HCPCS: 96127 ==

== ENCOUNTER 2024-04-04 13:48 | Outpatient (AMB) | payer MEDICARE, BC, SELFPAY ==
[2024-04-04 13:49] VITALS: BP 146/80; PULSE 78; O2SAT 99; BMI 25.6
--- NOTE | 2024-04-04 13:49 | A.OFFVIS_ITS ---
Vital Signs 04/04/24 13:49 Height 5 ft 4 in Weight 149 lb 0.52 oz BMI 25.6 BP 146/80 H Blood Pressure Location Lt brachial Position Sitting Pulse 78 Pulse Source Pulse Oximeter Pulse Oximetry (%) 99 Oxygen Delivery Method Room Air Intake Visit Reasons: Celiac disease / Angie pt Intake Note: Relevant Flags or Indicators ? Requires Asphalt Patcher? N Arleen presents in office today for a scheduled initial assessment for celiac disease. CC; Labs drawn as of January 2024. No new meds or imaging. ?Pt is concerned because they have a known reaction to some part of the anesthesia process. Pt is unsure what the particular allergy is. Pt states that she had a reaction with her last procedure x3 years ago. Relevant GI Sx as reported per pt? Nausea ? Vomiting (w/ or w/o bleeding?) ? Reflux - intermittently, 1-2 episodes per month. ? Fecal abnormalities o?? Diarrhea ? Abdominal Pain - cramping related to celiac. Generalized depending on intake. ? Bloating + gas. ? Abdominal distention ? Hx of any recent surgeries? None Asphalt Patcher Required: No Allergies No Known Allergies [No Known Allergies*] Allergy (Verified 04/04/24 13:51) Medication List - Last Reconciled 04/04/24 by Romie Trujillo MD cholecalciferol (vitamin D3) 50 mcg PO DAILY 90 days gabapentin 600 mg PO BEDTIME levothyroxine 100 mcg PO DAILY 90 days pravastatin 40 mg PO DAILY topiramate 25 mg PO BEDTIME HPI HPI Celiac disease / Angie pt: Details: GI clinic visit for this 63 year female with hypertension, hypothyroidism and hypercholesterolemia followed in GI for celiac disease Pt was last seen in 2020 TODAY'S VISIT: I have my celiac under control Doing Ok - does not throw up as frequently Can have abdominal pain, cramps and diarrhea. Tries to follow a GFD - and unable to follow it strictly Cheats once in a while and pays for it after Eats a lot of vegetables, salads, chicken, GF pasta Patient complains of intermittent heartburn - once a month(takes Tums with relief) Can have vomiting and diarrhea once a month associated with taking foods with Gluten Denies dysphagia, change in appetite or weight. Denies recent change in bowel habits, constipation, black stools or rectal bleeding. Patient denies major cardiac or pulmonary problems, loud snoring or sleep apnea Has trouble waking up after anesthesia in the past - uses a patch - had vomiting, diarrhea and sweating after last EGD and colon. Denies being on chronic anticoagulation. Patient denies known family history of colon polyps, colon cancer or other GI malignancies. Sister had melanoma and brain tumor, another sister had sarcoma LABS IN [employer] : Reviewed IMAGING STUDIES: Reviewed ENDOSCOPIC STUDIES: 12/2020 EGD AND COLON SHOWED: Endoscopy Findings: ESOPHAGUS:? Small hiatal hernia.? Focal esophagitis with 1 cms chronic appearing erosion at GE junction.. STOMACH: Antral gastritis DUODENUM: Normal - biopsied to follow up on celiac sprue. Colonoscopy Findings: One small polyp removed. Random biopsies were obtained from the colon to check for microscopic colitis. Moderate diverticulosis seen in the sigmoid colon Moderate hemorrhoids on retroflexed exam. Plan: Repeat Colonoscopy interval based on path results - in 5 years if polyp is adenomatous and 10 years if polyps are hyperplastic. (adult colonoscopy for future colonoscopies) Above findings were reviewed with the patient and GERD, colon polyps and diverticulosis handouts were given in the discharge area BIOPSIES SHOWED: A. Small bowel, biopsy: Duodenal mucosa with partial villous blunting, patchy increased intraepithelial lymphocytes and gastric metaplasia. See comment. B. Stomach, antrum, biopsy: Antral- type mucosa with mild chronic inactive inflammation; no Helicobacter organisms seen. C. Colon, random, biopsy: Colonic mucosa within normal limits; negative for microscopic colitis. D. Colon, sigmoid, polypectomy: Hyperplastic mucosal polyp. COMMENT: The findings in the small bowel are likely all related to peptic injury. However, if clinical suspicion for celiac disease is high, superimposed involvement by celiac disease cannot be entirely ruled out. PAST GI HISTORY BY REVIEW OF MEDICAL RECORDS: A 60 y/o female with Celiac disease-follows up after EGD and colonoscopy. She states she was very sick after due to anesthesia- she had requested the patch - which they refused- she was not happy about their refusal. She had full 24 hours of nausea and vomiting after the procedure, symptoms then resolved. She has not had any further issues she feels this was completely due to the anesthesia She has no GI complaints today. She does typically follow gluten free diet however she does admit at times she has things that she should not and she does note a symptoms. [facility] Medical History (Updated 04/04/24 @ 15:06 by Romie Trujillo MD) Arthritis Hypothyroidism PONV (postoperative nausea and vomiting) Celiac disease Overweight (BMI 25.0-29.9) Reactive depression Anxiety Primary osteoarthritis of right knee Insomnia Migraine Dystonia Lumbar degenerative disc disease Impaired fasting glucose Cervical spondylosis Vitamin D deficiency Acquired hypothyroidism Pure hypercholesterolemia Benign essential hypertension Surgical History History of arthroplasty of right knee (~10/24/20) H/O esophagogastroduodenoscopy H/O colonoscopy History of hand surgery History of lumbar surgery History of arthroplasty of left knee Family History Father Cancer Mother CRD (chronic renal disease) CVD (cardiovascular disease) Myocardial infarction Sister Sarcoma Sister Melanoma Social History Housing: Apartment Alcohol intake: current Alcohol intake frequency: does not drink Patient Tobacco Use Status: Never used Tobacco e-Cigarette/Vaping Use: Never Used Second Hand Smoke Exposure: Yes service: No Current occupational status: employed and retired Current occupational exposures/hazards: No Cognitive needs: No Hearing needs: No Vision needs: No Review of Systems Const All systems reviewed & are unremarkable except as noted in HPI and below Physical Exam Vital Signs: Last Vital Signs Pulse 78 04/04/24 13:49 BP 146/80 H 04/04/24 13:49 Pulse Ox 99 04/04/24 13:49 Oxygen Delivery Method Room Air 04/04/24 13:49 BMI result Body Mass Index 25.6 Const General: healthy appearing and no acute distress Nutritional Appearance: average body habitus Orientation/consciousness: patient oriented x3 Limitations: no limitations HEENT Head: Yes normal to inspection Ears: hearing grossly normal bilaterally Eyes Sclerae: sclerae normal Pupils: Equal, round and reactive pupils present Neck Neck: Yes normal visual inspection Chest Chest palpation & inspection: normal inspection of the chest Resp Effort & Inspection: normal respiratory effort Auscultation: clear to auscultation bilaterally Cardio Palpation: normal PMI Rate: regular rate Rhythm: regular rhythm Heart sounds: S1 normal heart sound present, S2 normal heart sound present and no murmurs GI Palpation (GI): Soft to palpation, nontender and No hepatosplenomegaly present Auscultation: normal bowel sounds Rectal Exam - Female: deferred Skin General skin exam: no rashes or lesions noted Neuro General: patient oriented x3, gait normal and moves all extremities Cranial nerves: Yes Equal, round and reactive pupils present Psych Appearance: grossly normal Mental Status: mental status grossly normal Assessment & Plan Assessment & Plan (1) Celiac disease: Comment: Reviewed EGD, colonoscopy report and pathology Small bowel, biopsy:? ? Duodenal mucosa with partial villous blunting, patchy increased intraepithelial lymphocytes and gastric metaplasia. -gastric metaplasia likely due to celiac disease would recommend repeating a EGD with biopsy mapping in 3 years -tTG IgA-normal Code(s): K90.0 - Celiac disease Category: Medical (2) Colon cancer screening: Code(s): Z12.11 - Encounter for screening for malignant neoplasm of colon Category: Medical Plan: 12/2020 colonoscopy showed diverticulosis and hemorrhoids and a hyperplastic polyp was removed. Repeat colonoscopy is advised in 10 years (due 12/2030) Plan 63 year female with hypertension, hypothyroidism and hypercholesterolemia followed in GI for celiac disease Pt was last seen in 2020 Can have abdominal pain, cramps and diarrhea. Tries to follow a GFD - and unable to follow it strictly Cheats once in a while and pays for it after Eats a lot of vegetables, salads, chicken, GF pasta Patient complains of intermittent heartburn - once a month(takes Tums with relief) Patient was advised to have labs checked for follow-up of celiac disease. Patient will be scheduled for an upper endoscopy since she duodenal biopsies on previous endoscopy showed partial villous blunting, patchy increased intraepithelial lymphocytes and gastric metaplasia Follow-up in 6 months Orders: Orders Immunoglobulin A Today K90.0 - Celiac disease Transglutaminase Ab IgG Today K90.0 - Celiac disease Transglutaminase IgA Today K90.0 - Celiac disease Vitamin B12 and Folate Today K90.0 - Celiac disease Vitamin A Today K90.0 - Celiac disease Vitamin E Today K90.0 - Celiac disease Coding Level of Care Code New Pt Level 4 (69677) Diagnoses Celiac disease K90.0 Colon cancer screening Z12.11 Time Spent (min) 22
== END 2024-04-04 15:41 | disposition home or self-care (01) ==
PROVIDERS: PCP Internal Medicine; Visit Provider Internal Medicine Gastroenterology
DX: K90.0 Celiac disease (principal); Z12.11 Encounter for screening for malignant neoplasm of colon
CPT/HCPCS: 99204

== ENCOUNTER → 2024-04-04 13:48 | Outpatient (BNVA) | payer MEDICARE, BC, SELFPAY | PROVIDERS: PCP Internal Medicine; Visit Provider Internal Medicine Gastroenterology | DX: K90.0 Celiac disease (principal) | CPT/HCPCS: 99202 ==

== ENCOUNTER 2024-04-05 11:27 | Outpatient (REF) | payer MEDICARE, BC, SELFPAY ==
[2024-04-05 13:58] LABS: Vitamin B12 186 pg/mL (200-900)
[2024-04-08 06:30] LABS: Immunoglobulin A 341 mg/dL (70-320)
[2024-04-09 21:59] LABS: Transglutaminase Ab IgG 1.5 U/mL; Transglutaminase IgA <1.0 U/mL
[2024-04-11 06:38] LABS: Alpha-Tocopherol 9.3 mg/L (5.7-19.9); Beta-Gamma Tocopherol <1.0 mg/L (<=4.3); Vitamin A 47 mcg/dL (38-98)
== END 2024-04-05 11:28 | disposition home or self-care (01) ==
LOC: HO.LAB 11:27
PROVIDERS: PCP Internal Medicine; Visit Provider Internal Medicine Gastroenterology
DX: K90.0 Celiac disease (principal)
CPT/HCPCS: 36415; 82607; 82746; 82784; 84446; 84590; 86364

== ENCOUNTER 2024-07-22 10:51 | Outpatient (REF) | payer MEDICARE, BC, SELFPAY ==
[2024-07-22 11:46] LABS: MANUAL DIFF FLAG NO
[2024-07-22 11:51] LABS: Basophils Absolute Auto 0.1 X10*3/uL (0.0-0.2); Basophils Percent Auto 1.3 % (0-2); Eosinophils Absolute Auto 0.1 X10*3/uL (0.0-0.4); Eosinophils Percent Auto 2.2 % (0-4); Hematocrit 42.6 % (37.0-47.0); Hemoglobin 13.8 g/dl (12.0-16.0); Imm Gran Abs Auto 0.02 X10*3/uL (0.00-0.03); Imm Gran Pct Auto 0.3 % (0.0-0.4); Lymphocytes Absolute Auto 1.8 X10*3/uL (1.2-4.9); Lymphocytes Percent Auto 30.2 % (20-40); Mean Corpuscular HGB Conc 32.4 g/dl (31.0-35.0); Mean Corpuscular Hemoglobin 28.6 pg (27.0-33.0); Mean Corpuscular Volume 88.2 fL (80.0-98.0); Mean Platelet Volume 9.9 fL (9.4-12.3); Monocytes Absolute Auto 0.5 X10*3/uL (0.1-1.2); Monocytes Percent Auto 8.3 % (2-11); Neutrophils Absolute Auto 3.5 x10*3/uL (2.0-8.3); Neutrophils Percent Auto 57.7 % (45-73); Platelet Count 333 X10*3/uL (160-400); Red Blood Count 4.83 X10*6/uL (4.20-5.50); Red Cell Distribution Width 15.6 % (11.0-16.0)
[2024-07-22 11:58] LABS: Appearance Urine Cloudy; Color Urine Yellow; Glucose Urine UA Negative (Negative); Leukocyte Esterase Urine Trace (Negative); Nitrite Urine Negative (Negative); UMIC TRIGGER UACC YES; Urine Blood Small (1+) (Negative); Urine Ketones Negative (Negative); Urine Protein Negative (Neg-Trace)
[2024-07-22 12:05] LABS: Estimated Average Glucose 114 mg/dL; Hemoglobin A1C 136.4458 umol/L; Hemoglobin A1c % 5.6 % (<6.0); Total Hemoglobin (HGBA1C) 3572.9873 umol/L
[2024-07-22 12:15] LABS: Bacteria Urine None Seen (None Seen); Granular Casts Urine Present; RBC Urine 0-2 /HPF (0-2); WBC Urine 0-5 /HPF (0-5)
[2024-07-22 12:18] LABS: Alanine Aminotransferase 14 U/L (0-31); Albumin Level 4.1 g/dL (3.5-5.0); Alkaline Phosphatase 77 U/L (39-117); Anion Gap 12 (12-20); Aspartate Amino Transferase 16 U/L (5-31); Bilirubin Total 0.5 mg/dL (0.0-1.0); Blood Urea Nitrogen 12 mg/dL (9-16); Calcium 9.2 mg/dL (8.4-10.2); Carbon Dioxide 22 mmol/L (22-29); Chloride 111 mmol/L (96-108); Cholesterol 173 mg/dL (<200); Estimated Glomerular Filt Rate > 60; Glucose Fasting 130 mg/dL (60-99); HDL Cholesterol 68 mg/dL (>40); LDL Cholesterol Calculated 90 mg/dL (<100); Potassium 3.5 mmol/L (3.3-5.1); Sodium 141 mmol/L (135-145); Total Protein 7.5 g/dL (6.5-8.0); Triglycerides 78 mg/dL (<150)
[2024-07-22 12:31] LABS: Free T4 (Free Thyroxine) 1.47 ng/dL (0.71-1.85); Thyroid Stimulating Hormone < 0.01 uIU/mL (0.32-4.0); Vitamin D 25-OH Total 40.4 ng/mL (>30)
== END 2024-07-22 10:52 | disposition home or self-care (01) ==
LOC: HO.10HDL 10:51
PROVIDERS: Visit Provider Internal Medicine
DX: D64.9 Anemia, unspecified (principal); R73.01 Impaired fasting glucose; E03.9 Hypothyroidism, unspecified; E55.9 Vitamin D deficiency, unspecified; E78.00 Pure hypercholesterolemia, unspecified
CPT/HCPCS: 36415; 80053; 80061; 81001; 82306; 83036; 84439; 84443; 85025

== ENCOUNTER 2024-07-31 10:04 | Outpatient (AMB) | payer MEDICARE, BC, SELFPAY ==
[2024-07-31 10:10] VITALS: BP 116/76; PULSE 84; O2SAT 99; BMI 25.4
--- NOTE | 2024-07-31 10:10 | MHC.PC.OV ---
Vital Signs 07/31/24 10:10 Height 5 ft 4 in Weight 148 lb 4 oz BMI 25.4 BP 116/76 Blood Pressure Location Lt brachial Position Sitting Pulse 84 Pulse Source Pulse Oximeter Pulse Oximetry (%) 99 Oxygen Delivery Method Room Air Intake Visit Reasons: 6 Months F/U Director Of Quality Improvement Required: No Accompanied by: Self / Same As Patient Allergies No Known Allergies [No Known Allergies*] Allergy (Verified 07/31/24 11:01) Medication List - Last Reconciled 07/31/24 by Deejay Meza MD cholecalciferol (vitamin D3) 50 mcg PO DAILY 90 days gabapentin 600 mg PO BEDTIME levothyroxine 100 mcg PO DAILY 90 days lisinopril 2.5 mg PO DAILY 90 days mecobalamin (vitamin B12) 1,000 mcg sublingual DAILY 90 days pravastatin 40 mg PO DAILY topiramate 25 mg PO BEDTIME Tobacco use date assessed: 07/31/24 Fall risk assessment: No Falls in past year Last assessed Fall Risk: 07/31/24 Dental Screening Dental Screen Date: 07/31/24 Did you have a dental visit in the last 12 months?: Yes Did you have a dental problem in the last 6 months where you did not have access to dental care?: No Was dental information given to patient?: Patient has dentist HPI 6 Months F/U HPI Details Patient comes in today for her follow up visit States that she feels okay She denies any headaches or dizziness Denies any chest pains, no SOB No nausea/vomiting, no abdominal pain No change in bowel habits noted States that she still has chronic neck pain and joint pains but they remain mostly manageable She had her follow up labs done last week - to discuss her results [facility] Medical History (Updated 07/31/24 @ 11:27 by Deejay Meza MD) Vitamin B12 deficiency Arthritis Hypothyroidism PONV (postoperative nausea and vomiting) Celiac disease Overweight (BMI 25.0-29.9) Reactive depression Anxiety Primary osteoarthritis of right knee Insomnia Migraine Dystonia Lumbar degenerative disc disease Impaired fasting glucose Cervical spondylosis Vitamin D deficiency Acquired hypothyroidism Pure hypercholesterolemia Benign essential hypertension Surgical History History of arthroplasty of right knee (~10/24/20) H/O esophagogastroduodenoscopy H/O colonoscopy History of hand surgery History of lumbar surgery History of arthroplasty of left knee Family History Father Cancer Mother CRD (chronic renal disease) CVD (cardiovascular disease) Myocardial infarction Sister Sarcoma Sister Melanoma Social History Housing: Apartment Alcohol intake: current Alcohol intake frequency: does not drink Patient Tobacco Use Status: Never used Tobacco e-Cigarette/Vaping Use: Never Used Second Hand Smoke Exposure: Yes service: No Current occupational status: employed and retired Current occupational exposures/hazards: No Cognitive needs: No Hearing needs: No Vision needs: No Questionnaire PHQ-9 Over the last 2 weeks, how often have you been bothered by any of the following problems? 1. Little interest or pleasure in doing things: not at all 2. Feeling down, depressed, or hopeless: not at all 3. Trouble falling or staying asleep, or sleeping too much: not at all 4. Feeling tired or having little energy: not at all 5. Poor appetite or overeating: not at all 6. Feeling bad about yourself - or that you are a failure or have let yourself or your family down: not at all 7. Trouble concentrating on things, such as reading the newspaper or watching television: not at all 8. Moving or speaking so slowly that other people could have noticed. Or the opposite - being so fidgety or restless that you have been moving around a lot more than usual: not at all 9. Thoughts that you would be better off or of hurting yourself in some way: not at all Total score: 0 Depression Screening Interpretation: Negative Depression Screening Done: Yes 74602 - PHQ-9 Billing: Yes Source: Developed by Drs. Greg Manriquez, Dorothy Paula, Mckinley Renee and colleagues, with an educational jero from [employer]. Thrive Questionnaire Date Thrive assessed: 07/31/24 I am a: Patient What is your living situation today?: I have a steady place to live Within the past 12 months, did the food you bought not last and you didn't have the money to get more?: Never true Within the past 12 months, did you worry whether your food would run out before you got money to buy more?: Never true Do you have trouble paying for medicines?: No Do you have trouble getting transportation to medical appointments?: No Do you have trouble paying your heating and electricity bill?: No Do you have trouble taking care of your child, family member or friend?: No Do you have trouble with day-to-day activities such as bathing, preparing meals, shopping, managing finances, etc.?: No Are you currently unemployed and looking for a job?: No Are you interested in more education?: No Please select the resources that you would like help with: None Currently or been in a relationship where the following occur: No concerns reported THRIVE Score: 0 AUDIT C Alcohol Use Questionnaire (AUDIT-C) 1. How often do you have a drink containing alcohol?: Monthly or less 2. How many drinks containing alcohol do you have on a typical day when you are drinking?: 1 or 2 3. How often do you have six or more drinks on one occasion?: Never Total Score: 1 Score Reviewed/Action Taken: Yes LONG-7 AMB Questionnaire LONG-7 Date LONG - 7 assessed: 07/31/24 Feeling nervous, anxious, or on edge: 0 = Not at all Not being able to stop or control worryin = Not at all Worrying too much about different things: 0 = Not at all Trouble relaxin = Not at all Being so restless that it is hard to sit still: 0 = Not at all Becoming easily annoyed or irritable: 0 = Not at all Feeling afraid as if something awful might happen: 0 = Not at all Total LONG-7 score (0-4 normal; 5-9 mild; 10-14 moderate; 15-21 severe): 0 Source: Developed by Drs. Greg Manriquez, Dorothy Paula, Mckinley Renee and colleagues, with an educational jero from [employer]. Review of Systems Const Reports difficulty sleeping (better lately), Denies fatigue, Denies fever(s) and Denies headache(s) ENT Denies dysphagia, Denies dizziness, Denies otalgia, Denies headache(s), Reports neck pain (chronic - has right-sided cervical dystonia), Denies odynophagia and Denies sore throat Card Denies chest pain, Denies palpitations and Denies dyspnea Resp Denies chest congestion, Denies cough and Denies dyspnea GI Denies abdominal pain, Denies constipation, Denies dysphagia, Denies heartburn, Denies diarrhea, Denies nausea, Denies odynophagia and Denies vomiting Denies difficulty voiding, Denies nocturia, Denies dysuria and Denies urinary urgency Musc Details: (+) recurrent pain over the right arm and right leg, often with increased activity or exertion Reports back pain (on and off over the lower back), Reports neck pain (chronic - has right-sided cervical dystonia) and Reports radiating pain into limb (into the right arm at times) Skin/Breast Denies rash Neuro Denies dizziness and Denies headache(s) Endo Denies fatigue and Denies palpitations Physical exam (Primary Care) Vital Signs: Last Vital Signs Pulse 84 07/31/24 10:10 BP 116/76 07/31/24 10:10 Pulse Ox 99 07/31/24 10:10 Oxygen Delivery Method Room Air 07/31/24 10:10 BMI result Body Mass Index 25.4 Tobacco/Smoking Status: Tobacco use Status Tobacco use date assessed 07/31/24 07/31/24 10:16 Patient Tobacco Use Status Never used Tobacco 07/31/24 10:16 e-Cigarette/Vaping Use Never Used 07/31/24 10:16 PHQ-9: PHQ-9 Score PHQ-9: Total score 0 07/31/24 11:02 Depression Screening Interpretation: Negative Thrive Assessment: Date of Thrive Assessment Date Thrive assessed 07/31/24 07/31/24 10:16 Currently or been in a relationship where the following occur: No concerns reported Const General: no acute distress and alert HENMT Ears: TM's normal bilaterally and EAC's normal Throat: Yes posterior oropharynx normal and Yes tonsils normal (no TP congestion noted) Neck Neck: No lymphadenopathy and Yes tender Thyroid: Thyroid normal Resp Auscultation: clear to auscultation bilaterally, no rales and no wheezes Cardio Rate: regular rate Rhythm: regular rhythm Heart sounds: no murmurs GI Palpation (GI): Soft to palpation and nontender Auscultation: normal bowel sounds General: Yes no CVA tenderness Back/Spine/Pelvis Back: no CVA tenderness Cervical Spine: cervical muscular tenderness (more on the right side) and Cervical spine tenderness (mild) Thoracic/Lumbar Spine: lumbar spinal tenderness (mild) Skin Rashes: no rashes Extrem General: Yes no clubbing, cyanosis or edema Right lower extremity: knee Details: tenderness; no swelling Results Reviewed Results Reviewed: Laboratory Tests 07/22/24 10:55 WBC 6.0 Hgb 13.8 Hct 42.6 Plt Count 333 Sodium 141 Potassium 3.5 Creatinine 0.78 Estimated GFR > 60 Fasting Glucose 130 H Hemoglobin A1c % 5.6 Calcium 9.2 AST 16 ALT 14 Triglycerides 78 Cholesterol 173 LDL Cholesterol, Calc 90 HDL Cholesterol 68 25-OH Vitamin D Total 40.4 TSH < 0.01 L Free T4 1.47 Urine pH 6.0 Ur Specific [place] 1.010 Urine Protein Negative Urine Glucose (UA) Negative Urine Blood Small (1+) H Urine Nitrite Negative Ur Leukocyte Esterase Trace H Coding Level of Care Code Est Pt Level 4 (08514) Complex EM visit Add On G2211 Diagnoses Pure hypercholesterolemia E78.00 Benign essential hypertension I10 Acquired hypothyroidism E03.9 Impaired fasting glucose R73.01 Migraine without status migrainosus, not intractable, unspecified migraine type G43.909 Intractability: not intractable Migraine type: unspecified Status migrainosus presence: without status migrainosus Dystonia G24.9 Cervical spondylosis M47.812 Degeneration of intervertebral disc of lumbar region with discogenic back pain M51.360 Disc-related pain type: discogenic back pain only Vitamin D deficiency E55.9 Vitamin B12 deficiency E53.8 Neuropathy G62.9 Primary osteoarthritis of right knee M17.11 Insomnia, unspecified type G47.00 Insomnia type: unspecified Anxiety F41.9 Reactive depression F32.9 Additional Codes PHQ-9 - 20388 - PHQ-9 Billing: Yes ([id number]) Assessment & Plan Assessment & Plan (1) Pure hypercholesterolemia: Code(s): E78.00 - Pure hypercholesterolemia, unspecified Category: Medical Plan: Results of her labs done last week reviewed and discussed with patient Reinforced low cholesterol diet Continue Pravastatin 40 mg QD Will recheck her labs and fasting lipids in 6 months for follow up (2) Benign essential hypertension: Code(s): I10 - Essential (primary) hypertension Category: Medical Plan: Reinforced low sodium diet - goal is systolic BP of 120 mm or less Continue Lisinopril 2.5 mg QD (3) Acquired hypothyroidism: Code(s): E03.9 - Hypothyroidism, unspecified Category: Medical Plan: Her TSH level remains suppressed but her free T4 level is normal on her recent labs Continue Levothyroxine 100 mcg QD Will recheck her TFTs in 6 months for follow up (4) Impaired fasting glucose: Code(s): R73.01 - Impaired fasting glucose Category: Medical Plan: Her FBS was high at 130 mg/dl on her labs done last week but her HgbA1c was normal at 5.6% Her HgbA1c has been normal at 5.7%, 5,4%, 5.3% and 5.6% when previously checked Reinforced low calorie diet/exercise as tolerated (5) Migraine: Code(s): G43.909 - Migraine, unspecified, not intractable, without status migrainosus Category: Medical Qualifiers: Intractability: not intractable Migraine type: unspecified Status migrainosus presence: without status migrainosus Qualified Code(s): G43.909 - Migraine, unspecified, not intractable, without status migrainosus Plan: Stable on prophylactic Rx Continue Topiramate 25 mg QHS and Sumatriptan 50 mg PRN Reinforced avoidance of migraine triggers Follow up with neurology as scheduled (6) Dystonia: Comment: Has cervical dystonia Code(s): G24.9 - Dystonia, unspecified Category: Medical Plan: Continue Gabapentin 300 mg 2 capsules (600 mg) daily at bedtime Follow up with neurology as scheduled (7) Cervical spondylosis: Code(s): M47.812 - Spondylosis without myelopathy or radiculopathy, cervical region Category: Medical Plan: Cervical spine x-rays done back on 02/12/2019 showed (+) multilevel degenerative changes with a mild 3 mm anterior subluxation of C3 with respect to C4 that is slightly increased from previous C-spine MRI done in 03/2012 He's had RFA x 2 with pain management over the past couple of years - he reported (+) significant relief of her neck symptoms initially but his neck symptoms have since regressed EMG & NCV done back in March 2022 revealed findings consistent with mild chronic right C5-C6 radiculopathy; nerve conduction studies came back completely normal He had C6-C7 fluoroscopy-guided parasagittal epidural steroid injection x 2 last year with (+) symptomatic relief Follow up with Pain Management as scheduled (8) Lumbar degenerative disc disease: Comment: S/P lumbar decompression [place] [address] Zapata, with (+) significant relief of her acute lower back symptoms Code(s): M51.36 - Other intervertebral disc degeneration, lumbar region Category: Medical Qualifiers: Disc-related pain type: discogenic back pain only Qualified Code(s): M51.360 - Other intervertebral disc degeneration, lumbar region with discogenic back pain only Plan: Reinforced activity and weight-lifting restrictions (9) Vitamin D deficiency: Code(s): E55.9 - Vitamin D deficiency, unspecified Category: Medical Plan: Continue Vitamin D3 2000 units QD She is also on a combined Vitamin D and Calcium tablets, which contains Vitamin D of around 400 to 600 units per tablet (10) Vitamin B12 deficiency: Code(s): E53.8 - Deficiency of other specified B group vitamins Category: Medical Plan: Continue Vitamin B12 tablets 1000 mcg QD Will recheck her Vitamin B12 level in 6 months for follow up (11) Neuropathy: Comment: EMG & NCV done on 10/31/2017 revealed (+) moderately severe right peroneal neuropathy and 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 Code(s): G62.9 - Polyneuropathy, unspecified Category: Medical Plan: Patient still has recurrent right leg pain/symptoms but states that Gabapentin has been helping with her symptoms Follow up with neurology as scheduled (12) Primary osteoarthritis of right knee: Code(s): M17.11 - Unilateral primary osteoarthritis, right knee Category: Medical Plan: S/P right knee arthroplasty in October 2020 Follow up with orthopedics ([facility]) as scheduled (13) Insomnia: Code(s): G47.00 - Insomnia, unspecified Category: Medical Qualifiers: Insomnia type: unspecified Qualified Code(s): G47.00 - Insomnia, unspecified Plan: Sleep hygiene reinforced States that Gabapentin at bedtime was helping previously but has not helped at all recently Reports that she is still waking up at least 2 to 3 times a night at times for no particular reason Continue OTC Melatonin Q HS PRN (14) Anxiety: Code(s): F41.9 - Anxiety disorder, unspecified Category: Medical Plan: Patient feels that she is still doing well with her anxiety and no longer has to take any Hydroxyzine She used to get counseling with [facility] but states that she has not needed to do so in a while now (15) Reactive depression: Code(s): F32.9 - Major depressive disorder, single episode, unspecified Category: Medical Plan: Improved - states that she is no longer taking Mirtazapine and feels that she is doing well off her meds so far Plan Follow up in 6 months Orders: Orders Lipid Panel 6 Months E78.00 - Pure hypercholesterolemia, unspecified UA CC w/rflx Micro + Cult 6 Months R30.0 - Dysuria Complete Blood Count Auto Diff 6 Months D64.9 - Anemia, unspecified Comprehensive [place]. Panel Fast 6 Months E78.00 - Pure hypercholesterolemia, unspecified Vitamin D 25-OH Total 6 Months E55.9 - Vitamin D deficiency, unspecified Vitamin B12 and Folate 6 Months E53.8 - Deficiency of other specified B group vitamins Hemoglobin A1c 6 Months R73.01 - Impaired fasting glucose Thyroid Stimulating Hormone 6 Months E03.9 - Hypothyroidism, unspecified Free T4 (Free Thyroxine) 6 Months E03.9 - Hypothyroidism, unspecified
== END 2024-07-31 11:18 | disposition home or self-care (01) ==
LOC: HO.HMCH 10:05
PROVIDERS: PCP Internal Medicine; Visit Provider Internal Medicine
DX: E78.00 Pure hypercholesterolemia, unspecified (principal); I10 Essential (primary) hypertension; E03.9 Hypothyroidism, unspecified; R73.01 Impaired fasting glucose; G43.909 Migraine, unspecified, not intractable, without status migrainosus; G24.9 Dystonia, unspecified; M47.812 Spondylosis without myelopathy or radiculopathy, cervical region; M51.360 Other intervertebral disc degeneration, lumbar region with discogenic back pain only; E55.9 Vitamin D deficiency, unspecified; E53.8 Deficiency of other specified B group vitamins; G62.9 Polyneuropathy, unspecified; M17.11 Unilateral primary osteoarthritis, right knee; G47.00 Insomnia, unspecified; F41.9 Anxiety disorder, unspecified; F32.9 Major depressive disorder, single episode, unspecified

== ENCOUNTER → 2024-07-31 10:04 | Outpatient (BNVA) | payer MEDICARE, BC, SELFPAY | PROVIDERS: PCP Internal Medicine; Visit Provider Internal Medicine | DX: E78.00 Pure hypercholesterolemia, unspecified (principal); I10 Essential (primary) hypertension; E03.9 Hypothyroidism, unspecified; R73.01 Impaired fasting glucose; G43.909 Migraine, unspecified, not intractable, without status migrainosus; G24.9 Dystonia, unspecified; M47.812 Spondylosis without myelopathy or radiculopathy, cervical region; M51.360 Other intervertebral disc degeneration, lumbar region with discogenic back pain only; E55.9 Vitamin D deficiency, unspecified; E53.8 Deficiency of other specified B group vitamins; G62.9 Polyneuropathy, unspecified; M17.11 Unilateral primary osteoarthritis, right knee; G47.00 Insomnia, unspecified; F41.9 Anxiety disorder, unspecified; F32.9 Major depressive disorder, single episode, unspecified | CPT/HCPCS: 96127; 99212 ==

== ENCOUNTER 2024-10-25 07:15 | Outpatient (AMB) | payer MEDICARE, BC, SELFPAY ==
--- OUTSIDE RECORDS SUMMARY | 2024-10-25 07:18 | XMS_ITS | Patient Health Record ---
[facility] Address [address] [address] Care Team Providers Care Commercial Finance Analyst Name Role Phone Brenden Rosales MD Primary Care Provider Wai Ramsey [phone] Reason For Referral No Information Medications Medication SIG (Take, Route, Frequency, Duration) Notes Start Date End Date Status Simvastatin 10 MG 1 tablet in the even ing Orally Once a day for 30 day(s) Active Neurontin 300 MG 1 capsule Orally Thr ee times a day for 30 day(s) Active Levothyroxine Sodium 25 MCG 1 tablet on an empty stomach in the morning Orally Once a day Active Lisinopril 5 MG 1 tablet Orally Once a day for 30 day(s) Active Problems Problem Type SNOMED Code ICD Code Onset Dates Problem Status W/U Status Risk Notes Problem Verruca plantaris ([id number]) Verruca Plantaris (078.19) Active confirmed Problem Disorder of joint of ankle and/or foot (393448429) Arthritis - Degenerative (719.97) Active confirmed Problem Acquired deformity of joint of big toe (disorder) (150470066) Hallux Limitus (735.8) Active confirmed Problem Pain in limb (38805259) Pain in Limb (729.5) Active confirmed Plan Of Treatment Pending Test Test Name Order Date [id number] Destruction, -06/06/2013 [id number] Destruction, -08/08/2013 Insurance Providers Payer Name Payer Address Payer Phone Subscriber Number Group Number Insured Name Patient Relationship to Insured Coverage Start Date Coverage End Date [facility] [address] [place] [address] [id number] PETERSON DRUMMOND Self - patient is the insured 9 Medical (General) History Medical History History ICD Code Back,Hip,and Knee pain Cholesterol Headaches High blood pressure Chicken pox Hypothyroidism Surgical History Surgery Date(Month/Year) section 1987,[address] Dangotes/ 1 Dr Travis garcia surgery back surgery cataract surgery OD cataract surgery OS 2013
[2024-10-25 07:29] VITALS: BP 110/76; PULSE 78; RESP 16; TEMP 36.1; O2SAT 98; BMI 24.6
--- NOTE | 2024-10-25 07:29 | A.OFFPC_ITS ---
Vital Signs 10/25/24 07:29 Height 5 ft 4 in Weight 143 lb 9.6 oz BMI 24.6 BP 110/76 Blood Pressure Location Lt brachial Position Sitting Respiration 16 Pulse 78 Pulse Source Pulse Oximeter Temp 96.9 F Temp Source Temporal Artery Scan Pulse Oximetry (%) 98 Oxygen Delivery Method Room Air Intake Visit Reasons: [facility]-Pulmonary Embolism Sample Body Builder Required: No Accompanied by: Self / Same As Patient Allergies No Known Allergies [No Known Allergies*] Allergy (Verified 10/25/24 07:30) Tobacco use date assessed: 10/25/24 Fall risk assessment: No Falls in past year Last assessed Fall Risk: 10/25/24 Dental Screening Dental Screen Date: 10/25/24 Did you have a dental visit in the last 12 months?: Yes Did you have a dental problem in the last 6 months where you did not have access to dental care?: No Was dental information given to patient?: Patient has dentist HPI HPI Comments History of Present Illness Details 63 y/o Female patient who [facility] for [facility]F. Pt was admitted at [facility] on 10/08 - 10/11 for evaluation and treatment of Pulmonary Embolism. CT chest with Angio showed Extensive B/L PE. It also showed 3.8 cm Adrenal mass; recommended repeat CT or MRI with Adrenal Protocol. There is Prior Knowlegde of Abdominal mass 2017 that is being monitored. S/p Pulmonary Angiogram with Cath directed Thrombolytic Therapy procedure done in the hospital. Currently taking Eliquis 5 mg BID and has an appointment with Onc/hem on 11/07 @ [facility]. [facility] Medical History (Updated 10/25/24 @ 07:40 by Uma Jamil NP) Pulmonary embolism Vitamin B12 deficiency Arthritis Hypothyroidism PONV (postoperative nausea and vomiting) Celiac disease Overweight (BMI 25.0-29.9) Reactive depression Anxiety Primary osteoarthritis of right knee Insomnia Migraine Dystonia Lumbar degenerative disc disease Impaired fasting glucose Cervical spondylosis Vitamin D deficiency Acquired hypothyroidism Pure hypercholesterolemia Benign essential hypertension Surgical History History of arthroplasty of right knee (~10/24/20) H/O esophagogastroduodenoscopy H/O colonoscopy History of hand surgery History of lumbar surgery History of arthroplasty of left knee Family History Father Cancer Mother CRD (chronic renal disease) CVD (cardiovascular disease) Myocardial infarction Sister Sarcoma Sister Melanoma Social History Housing: Apartment Alcohol intake: current Alcohol intake frequency: does not drink Patient Tobacco Use Status: Never used Tobacco e-Cigarette/Vaping Use: Never Used Second Hand Smoke Exposure: Yes service: No Current occupational status: employed and retired Current occupational exposures/hazards: No Cognitive needs: No Hearing needs: No Vision needs: No Questionnaire PHQ-9 Over the last 2 weeks, how often have you been bothered by any of the following problems? 1. Little interest or pleasure in doing things: not at all 2. Feeling down, depressed, or hopeless: not at all 3. Trouble falling or staying asleep, or sleeping too much: not at all 4. Feeling tired or having little energy: not at all 5. Poor appetite or overeating: not at all 6. Feeling bad about yourself - or that you are a failure or have let yourself or your family down: not at all 7. Trouble concentrating on things, such as reading the newspaper or watching television: not at all 8. Moving or speaking so slowly that other people could have noticed. Or the opposite - being so fidgety or restless that you have been moving around a lot more than usual: not at all 9. Thoughts that you would be better off or of hurting yourself in some way: not at all Total score: 0 Depression Screening Interpretation: Negative Depression Screening Done: Yes 05371 - PHQ-9 Billing: Yes Source: Developed by Drs. Greg Manriquez, Dorothy Paula, Mckinley Renee and colleagues, with an educational jero from [employer]*. Thrive Questionnaire Date Thrive assessed: 10/25/24 I am a: Patient What is your living situation today?: I have a steady place to live Within the past 12 months, did the food you bought not last and you didn't have the money to get more?: Never true Within the past 12 months, did you worry whether your food would run out before you got money to buy more?: Never true Do you have trouble paying for medicines?: No Do you have trouble getting transportation to medical appointments?: No Do you have trouble paying your heating and electricity bill?: No Do you have trouble taking care of your child, family member or friend?: No Do you have trouble with day-to-day activities such as bathing, preparing meals, shopping, managing finances, etc.?: No Are you currently unemployed and looking for a job?: No Are you interested in more education?: No Please select the resources that you would like help with: None Currently or been in a relationship where the following occur: No concerns reported THRIVE Score: 0 AUDIT C Alcohol Use Questionnaire (AUDIT-C) 1. How often do you have a drink containing alcohol?: Monthly or less Total Score: 1 Score Reviewed/Action Taken: No LONG-7 AMB Questionnaire LONG-7 Date LONG - 7 assessed: 10/25/24 Feeling nervous, anxious, or on edge: 0 = Not at all Not being able to stop or control worryin = Not at all Worrying too much about different things: 0 = Not at all Trouble relaxin = Not at all Being so restless that it is hard to sit still: 0 = Not at all Becoming easily annoyed or irritable: 0 = Not at all Feeling afraid as if something awful might happen: 0 = Not at all Total LONG-7 score (0-4 normal; 5-9 mild; 10-14 moderate; 15-21 severe): 0 Source: Developed by Drs. Greg Manriquez, Dorothy Paula, Mckinley Renee and colleagues, with an educational jero from [employer]*. LONG-7 Assessment Billing LONG-7 Assessment Tool: LONG-7 Assessment 23029 Review of Systems Const All systems reviewed & are unremarkable except as noted in HPI and below Physical exam (Primary Care) Vital Signs: Last Vital Signs Temp 96.9 F 10/25/24 07:29 Pulse 78 10/25/24 07:29 Resp 16 10/25/24 07:29 BP 110/76 10/25/24 07:29 Pulse Ox 98 10/25/24 07:29 Oxygen Delivery Method Room Air 10/25/24 07:29 BMI result Body Mass Index 24.6 Tobacco/Smoking Status: Tobacco use Status Tobacco use date assessed 10/25/24 10/25/24 07:36 Patient Tobacco Use Status Never used Tobacco 10/25/24 07:36 e-Cigarette/Vaping Use Never Used 10/25/24 07:36 PHQ-9: PHQ-9 Score PHQ-9: Total score 0 10/25/24 07:36 Depression Screening Interpretation: Negative Thrive Assessment: Date of Thrive Assessment Date Thrive assessed 10/25/24 10/25/24 07:36 Currently or been in a relationship where the following occur: No concerns reported Const General: no acute distress Nutritional Appearance: well nourished Orientation/consciousness: patient oriented x3 Resp Effort & Inspection: normal respiratory effort and able to speak in complete sentences Auscultation: clear to auscultation bilaterally Cardio Heart sounds: S1 normal heart sound present and S2 normal heart sound present Neuro General: patient oriented x3 Coding Level of Care Code Est Pt Level 4 (62356) Diagnoses Acute pulmonary embolism, unspecified pulmonary embolism type, unspecified whether acute cor pulmonale present I26.99 Pulmonary embolism type: unspecified Chronicity: acute Acute cor pulmonale presence: unspecified Additional Codes LONG-7 Assessment Billing - LONG-7 Assessment Tool: LONG-7 Assessment 24628 ([id number]) PHQ-9 - 43234 - PHQ-9 Billing: Yes ([id number]) Time Spent (min) 20 Assessment & Plan Assessment & Plan (1) Pulmonary embolism: Code(s): I26.99 - Other pulmonary embolism without acute cor pulmonale Category: Medical Qualifiers: Pulmonary embolism type: unspecified Chronicity: acute Acute cor pulmonale presence: unspecified Qualified Code(s): I26.99 - Other pulmonary embolism without acute cor pulmonale Plan: Managed by Onc/Hem Has an appointment on 11/07
== END 2024-10-25 09:28 | disposition home or self-care (01) ==
LOC: HO.HMCH 07:16
PROVIDERS: PCP Internal Medicine; Visit Provider Nurse Practitioner Family
DX: I26.99 Other pulmonary embolism without acute cor pulmonale (principal)

== ENCOUNTER → 2024-10-25 07:15 | Outpatient (BNVA) | payer MEDICARE, BC, SELFPAY | PROVIDERS: PCP Internal Medicine; Visit Provider Nurse Practitioner Family | DX: I26.99 Other pulmonary embolism without acute cor pulmonale (principal) | CPT/HCPCS: 96127; 99212 ==

== ENCOUNTER 2024-12-18 08:51 | Outpatient (REF) | payer MEDICARE, BC, SELFPAY ==
[2024-12-18 11:05] LABS: Appearance Urine Clear; Glucose Urine UA Negative (Negative); PH 5.5 (5.0-9.0); Specific Gravity - Urine 1.020 (1.005-1.025); UMIC TRIGGER UACC YES
[2024-12-18 12:52] LABS: Free T4 (Free Thyroxine) 1.47 ng/dL (0.71-1.85)
== END 2024-12-18 08:52 | disposition home or self-care (01) ==
LOC: HO.LAB 08:51
PROVIDERS: PCP Internal Medicine
DX: Z01.818 Encounter for other preprocedural examination (principal); E27.8 Other specified disorders of adrenal gland; I26.99 Other pulmonary embolism without acute cor pulmonale; I10 Essential (primary) hypertension; E03.9 Hypothyroidism, unspecified; R73.01 Impaired fasting glucose; Z86.718 Personal history of other venous thrombosis and embolism; Z79.01 Long term (current) use of anticoagulants; Z79.899 Other long term (current) drug therapy; Z13.30 Encounter for screening examination for mental health and behavioral disorders, unspecified; Z13.39 Encounter for screening examination for other mental health and behavioral disorders
CPT/HCPCS: 36415; 81001; 81003; 84439; 84443; 96127; 99212

== ENCOUNTER 2024-12-18 08:51 | Outpatient (AMB) | payer MEDICARE, BC, SELFPAY ==
[2024-12-18 08:56] VITALS: BP 110/60; PULSE 67; RESP 18; TEMP 36.1; O2SAT 94; BMI 23.9
--- NOTE | 2024-12-18 08:56 | MHC.PC.OV ---
Vital Signs 12/18/24 08:56 12/18/24 09:22 Height 5 ft 4 in Weight 139 lb 8 oz BMI 23.9 BP 110/60 128/84 Blood Pressure Location Rt brachial Lt brachial Position Sitting Sitting Respiration 18 Pulse 67 Pulse Source Pulse Oximeter Temp 97 F Temp Source Temporal Artery Scan Pulse Oximetry (%) 94 Oxygen Delivery Method Room Air Intake Visit Reasons: pre op adrenal gland mass Ic Designer Custom Required: No Accompanied by: Self / Same As Patient Allergies No Known Allergies (No Known Allergies*) Allergy (Verified 12/18/24 09:14) Medication List - Last Reconciled 12/18/24 by ALISSON Torres apixaban (Eliquis) 5 mg PO BID 90 days cholecalciferol (vitamin D3) 50 mcg PO DAILY 90 days gabapentin 600 mg PO BEDTIME levothyroxine 100 mcg PO DAILY 90 days lisinopril 2.5 mg PO DAILY 90 days mecobalamin (vitamin B12) 1,000 mcg sublingual DAILY 90 days pravastatin 40 mg PO DAILY topiramate 25 mg PO BEDTIME Tobacco use date assessed: 12/18/24 Fall risk assessment: No Falls in past year Last assessed Fall Risk: 12/18/24 Dental Screening Dental Screen Date: 12/18/24 Did you have a dental visit in the last 12 months?: Yes Did you have a dental problem in the last 6 months where you did not have access to dental care?: No Was dental information given to patient?: Patient has dentist HPI pre op adrenal gland mass HPI Details The patient is a 64-year-old female presenting for preop clearance. Patient of Dr. Meza, last seen in office 10/25/2024. Patient is presenting with need for preoperative evaluation for for adrenalectomy due to pheochromocytoma. The patient needs her blood pressure optimize DAVION prior to procedure. 1. Recommend that she be started on doxazosin (selective alpha yair). Recommended dose is typically 1 mg q.h.s. initially, which is then titrated to b.i.d. dosing (increased dose 1-2 mg Q 2-3 days) until BP is optimized. Frequent BP checks recommended during this period. 2. After 2-3 days of doxazosin, patient should start a high salt diet (> 5gm Na++ daily). 3. Three days prior to surgery, the patient should be initiated on a beta yair (e.g. Metoprolol), which is titrated to achieve HR 60-80. Beta blockers should not be initiated < 7 days after starting of a blockade. Discussed with the patient the following medications that should be avoided in preparation of the surgery because they could cause severe HTN in the setting of Pheochromocytoma: Glucagon Histamine Metoclopramide Corticosteroids The patient verbalized understanding. Surgery/location: Krista Wood MD, General Surgery at [facility] Anesthesia: Generalized anesthesia. Patient reports having difficulty with anesthesia. She reports having a hard time waking up and nausea. Reports that each time she had anesthesia, they had to give her a scopolamine patch. The patient was instructed to stop her Eliquis 2 days prior to surgery. Significant past medical history PE, cervical radiculopathy, anemia, celiac disease, migraine, lumbar degenerative disc disease, impaired fasting glucose, acquired hypothyroidism, benign essential hypertension, and hypercholesterolemia The patient denies chest pain, SOB, heart palpitation or dizziness Denies abdominal pain or change in bowel habits Denies any urinary symptoms Doxazosin 1 mg ordered. The patient was start this medication on Monday and coming office on Monday for blood pressure check. She will start incorporating a sodium diet greater than 5gm on Monday. She has follow up appointment to titrate medication according to plan of every 3 days. Blood work and EKG were ordered. Patient will get up blood work tomorrow to start the process. [facility] Medical History Pulmonary embolism Vitamin B12 deficiency Arthritis Hypothyroidism PONV (postoperative nausea and vomiting) Celiac disease Overweight (BMI 25.0-29.9) Reactive depression Anxiety Primary osteoarthritis of right knee Insomnia Migraine Dystonia Lumbar degenerative disc disease Impaired fasting glucose Cervical spondylosis Vitamin D deficiency Acquired hypothyroidism Pure hypercholesterolemia Benign essential hypertension Surgical History History of arthroplasty of right knee (~10/24/20) H/O esophagogastroduodenoscopy H/O colonoscopy History of hand surgery History of lumbar surgery History of arthroplasty of left knee Family History Father Cancer Mother CRD (chronic renal disease) CVD (cardiovascular disease) Myocardial infarction Sister Sarcoma Sister Melanoma Social History Housing: Apartment Alcohol intake: current Alcohol intake frequency: does not drink Patient Tobacco Use Status: Never used Tobacco e-Cigarette/Vaping Use: Never Used Second Hand Smoke Exposure: Yes service: No Current occupational status: employed and retired Current occupational exposures/hazards: No Cognitive needs: No Hearing needs: No Vision needs: No Questionnaire PHQ-9 Over the last 2 weeks, how often have you been bothered by any of the following problems? 1. Little interest or pleasure in doing things: not at all 2. Feeling down, depressed, or hopeless: not at all 3. Trouble falling or staying asleep, or sleeping too much: not at all 4. Feeling tired or having little energy: not at all 5. Poor appetite or overeating: not at all 6. Feeling bad about yourself - or that you are a failure or have let yourself or your family down: not at all 7. Trouble concentrating on things, such as reading the newspaper or watching television: not at all 8. Moving or speaking so slowly that other people could have noticed. Or the opposite - being so fidgety or restless that you have been moving around a lot more than usual: not at all 9. Thoughts that you would be better off or of hurting yourself in some way: not at all Total score: 0 Depression Screening Interpretation: Negative Depression Screening Done: Yes Source: Developed by Drs. Greg Manriquez, Dorothy Paula, Mckinley Renee and colleagues, with an educational jero from [employer] Thrive Questionnaire Date Thrive assessed: 12/18/24 I am a: Patient What is your living situation today?: I have a steady place to live Within the past 12 months, did the food you bought not last and you didn't have the money to get more?: Never true Within the past 12 months, did you worry whether your food would run out before you got money to buy more?: Never true Do you have trouble paying for medicines?: No Do you have trouble getting transportation to medical appointments?: No Do you have trouble paying your heating and electricity bill?: No Do you have trouble taking care of your child, family member or friend?: No Do you have trouble with day-to-day activities such as bathing, preparing meals, shopping, managing finances, etc.?: No Are you currently unemployed and looking for a job?: No Are you interested in more education?: No Please select the resources that you would like help with: None Currently or been in a relationship where the following occur: No concerns reported THRIVE Score: 0 AUDIT C Alcohol Use Questionnaire (AUDIT-C) 1. How often do you have a drink containing alcohol?: Never 3. How often do you have six or more drinks on one occasion?: Never Total Score: 0 Score Reviewed/Action Taken: No LONG-7 AMB Questionnaire LONG-7 Date LONG - 7 assessed: 12/18/24 Feeling nervous, anxious, or on edge: 0 = Not at all Not being able to stop or control worryin = Not at all Worrying too much about different things: 0 = Not at all Trouble relaxin = Not at all Being so restless that it is hard to sit still: 0 = Not at all Becoming easily annoyed or irritable: 0 = Not at all Feeling afraid as if something awful might happen: 0 = Not at all Total LONG-7 score (0-4 normal; 5-9 mild; 10-14 moderate; 15-21 severe): 0 Source: Developed by Drs. Greg Manriquez, Dorothy Paula, Mckinley Renee and colleagues, with an educational jero from [employer]. Review of Systems Const Reports headache(s) (On and off-has been stable) Eyes Denies loss of vision ENT Denies vertigo, Denies dizziness, Reports headache(s) (On and off-has been stable), Reports neck pain (Primarily right side) and Denies sore throat Card Denies chest pain, Denies leg edema and Denies lightheadedness Resp Denies cough, Denies hemoptysis and Denies wheezing GI Denies abdominal pain, Denies melena, Denies constipation, Denies diarrhea and Denies vomiting Denies urinary frequency, Denies dysuria and Denies urinary urgency Musc Reports back pain (Lower back on and off), Denies arthralgias, Denies joint swelling, Reports neck pain (Primarily right side), Denies numbness and Denies tingling Neuro Denies Abnormal speech present, Denies behavioral changes, Denies vertigo, Denies dizziness, Reports headache(s) (On and off-has been stable), Denies loss of vision, Denies memory loss, Denies numbness and Denies tingling Psych Denies anxiety, Denies behavioral changes, Denies depression, Denies memory loss and Denies panic attacks Ramo/Lymph Denies easy bleeding and Denies easy bruising Aller/Immun Denies wheezing Physical exam (Primary Care) Vital Signs: Last Vital Signs Temp 97 F 12/18/24 08:56 Pulse 67 12/18/24 08:56 Resp 18 12/18/24 08:56 BP 128/84 12/18/24 09:22 Pulse Ox 94 12/18/24 08:56 Oxygen Delivery Method Room Air 12/18/24 08:56 BMI result Body Mass Index 23.9 Tobacco/Smoking Status: Tobacco use Status Tobacco use date assessed 12/18/24 12/18/24 09:03 Patient Tobacco Use Status Never used Tobacco 12/18/24 09:03 e-Cigarette/Vaping Use Never Used 12/18/24 09:03 PHQ-9: PHQ-9 Score PHQ-9: Total score 0 12/19/24 08:27 Depression Screening Interpretation: Negative Thrive Assessment: Date of Thrive Assessment Date Thrive assessed 12/18/24 12/18/24 09:03 Currently or been in a relationship where the following occur: No concerns reported Const General: healthy appearing, no acute distress, alert and awake Nutritional Appearance: well nourished Orientation/consciousness: oriented to person, oriented to place and oriented to time HENNM Ears: TM's normal bilaterally General nose exam: Normal nasal mucous membranes and turbinates present Eyes Conjunctivae: conjunctivae normal Sclerae: sclerae normal Pupils: Equal, round and reactive pupils present Neck Neck: Yes no lymphadenopathy and Yes no JVD Thyroid: Thyroid normal Carotids: no bruits Resp Effort & Inspection: normal respiratory effort and not tachypneic Auscultation: clear to auscultation bilaterally, no crackles, no rales, no rhonchi and no wheezes Cardio Rate: regular rate Rhythm: regular rhythm Heart sounds: S1 normal heart sound present, S2 normal heart sound present, no murmurs and normal S1 and S2 Peripheral pulses: Peripheral pulses 2+ throughout GI Palpation (GI): Soft to palpation, nontender, no hepatomegaly and no splenomegaly Auscultation: normal bowel sounds General: Yes no CVA tenderness Back/Spine/Pelvis Back: no CVA tenderness Cervical Spine: Cervical spine tenderness (Mild) Thoracic/Lumbar Spine: lumbar spinal tenderness (Mild) Skin General skin exam: no rashes or lesions noted and dry skin Neuro General: oriented to person, oriented to place and oriented to time Cranial nerves: Yes Equal, round and reactive pupils present Speech: No Abnormal speech present Gait exam (Neuro): Normal gait present Motor exam (neuro): 5/5 motor strength present throughout and no tremor noted Extrem Right upper extremity: full ROM Left upper extremity: full ROM Right lower extremity: full ROM; no edema Left lower extremity: full ROM; no edema Psych Mental Status: mental status grossly normal Speech and movement: Normal speech and movement present Affect: normal affect Attitude: cooperative Thought process: Normal thought process present Coding Level of Care Code Est Pt Level 4 (24218) Diagnoses Preoperative clearance Z01.818 Adrenal mass E27.8 Acute pulmonary embolism, unspecified pulmonary embolism type, unspecified whether acute cor pulmonale present I26.99 Acute cor pulmonale presence: unspecified Chronicity: acute Pulmonary embolism type: unspecified Benign essential hypertension I10 Acquired hypothyroidism E03.9 Impaired fasting glucose R73.01 Time Spent (min) 43 Assessment & Plan Assessment & Plan (1) Preoperative clearance: Code(s): Z01.818 - Encounter for other preprocedural examination Category: Medical Plan: Regarding preop clearance, the patient is at acceptable risk for proposed surgery upon completing ordered labs and ekg that are within acceptable ranges. Reviewed with the patient that no surgery is completely free of risk and that this examination is to assist the surgeon in reviewing informed consent. Hold apixaban 2 days before surgery. Start blood pressure optimization plan with doxazosin and start beta-yair 3 days before surgery. (2) Adrenal mass: Code(s): E27.8 - Other specified disorders of adrenal gland Category: Medical Plan: The patient had radiographic and serologic results consistent with an unilateral pheochromocytoma. She has intermittent severe hypertension although has been well-controlled lisinopril 2.5 mg daily. Plans for adrenalectomy on 01/28/2025 (3) Pulmonary embolism: Code(s): I26.99 - Other pulmonary embolism without acute cor pulmonale Category: Medical Qualifiers: Acute cor pulmonale presence: unspecified Chronicity: acute Pulmonary embolism type: unspecified Qualified Code(s): I26.99 - Other pulmonary embolism without acute cor pulmonale Plan: History of DVT and was on Coumadin in 2017 after suffering a calf injury during racquetball. Most recently the patient was diagnosed with PE after going to the emergency room with complaints of shortness of Breath. She was started on apixaban and has been stable denies shortness of breath. (4) Benign essential hypertension: Code(s): I10 - Essential (primary) hypertension Category: Medical Plan: Blood pressure 128/84 today in office Continue current treatment with plans to optimize blood pressure with doxazosin. The patient also was instructed to start high sodium diet greater than 5gm 3 days after starting on doxazosin. Blood pressure will be monitored closely and medication will be titrated accordingly. Patient was instructed to also to check blood pressure frequently at home and contact the office with any concerns. (5) Acquired hypothyroidism: Code(s): E03.9 - Hypothyroidism, unspecified Category: Medical Plan: Continue levothyroxine 100 mcg daily We will continue to monitor (6) Impaired fasting glucose: Code(s): R73.01 - Impaired fasting glucose Category: Medical Plan: Fasting glucose and A1c ordered Continue low sugar/carbohydrate diet Orders: Orders UA CC w/rflx Micro + Cult 12/18/24 Z01.818 - Encounter for other preprocedural examination TSH reflex Free T4 12/18/24 Z01.818 - Encounter for other preprocedural examination ECG 12 lead EKG 12/19/24 Z01.818 - Encounter for other preprocedural examination Medications: New doxazosin (Cardura) start on the 12/23/24 1 mg PO BID 6 tabs 0RF 3 days doxazosin (Cardura) Start medication on 12/20/24 1 mg PO BEDTIME 3 tabs 0RF 3 days
--- OUTSIDE RECORDS SUMMARY | 2024-12-18 09:02 | XMS_ITS | Patient Health Record ---
Author Organization [facility] Address [address] [facility] [place] [address] Care Team Providers Care Ctrs Name Role Phone Brenden Rosales MD Primary Care Provider Wai Ramsey [phone] Reason For Referral No Information Medications Medication SIG (Take, Route, Frequency, Duration) Notes Start Date End Date Status Simvastatin 10 MG 1 tablet in the even ing Orally Once a day; Duration: 30 day(s) Active Neurontin 300 MG 1 capsule Orally Thr ee times a day; Duration: 30 day(s) Active Levothyroxine Sodium 25 MCG 1 tablet on an empty stomach in the morning Orally Once a day Active Lisinopril 5 MG 1 tablet Orally Once a day; Duration: 30 day(s) Active Problems Problem Type SNOMED Code ICD Code Onset Dates Problem Status W/U Status Risk Notes Problem Verruca plantaris (28175500) Verruca Plantaris (078.19) Active confirmed Problem Disorder of joint of ankle and/or foot (479878944) Arthritis - Degenerative (719.97) Active confirmed Problem Acquired deformity of joint of big toe (disorder) (930329254) Hallux Limitus (735.8) Active confirmed Problem Pain in limb (61750359) Pain in Limb (729.5) Active confirmed Plan Of Treatment Pending Test Test Name Order Date [id number] Destruction, -06/06/2013 [id number] Destruction, -08/08/2013 Insurance Providers Payer Name Payer Address Payer Phone Subscriber Number Group Number Insured Name Patient Relationship to Insured Coverage Start Date Coverage End Date [facility] [address] [place] [address] [id number] PETERSON DRUMMOND Self - patient is the insured 9 Medical (General) History Medical History History ICD Code Back,Hip,and Knee pain Cholesterol Headaches High blood pressure Chicken pox Hypothyroidism Surgical History Surgery Date(Month/Year) section 1987,[address] Dangotes/ 1 Dr Travis garcia surgery back surgery cataract surgery OD cataract surgery OS 2013
--- OUTSIDE RECORDS SUMMARY | 2024-12-18 09:02 | XMS_ITS | Encounter Summary ---
Author Organization [facility] Address [address] [place] [address] Care Team Providers Care Fish Farm Manager Name Role Phone Deejay Meza MD Primary Care Provider + [phone] Reason for Visit * Reason Onset Date Comments Scheduling Surgery 12/10/2024 Encounter Details Date Type Department Care Team ([facility] st Contact Info) Description 12/10/2024 Telephone General Surgery - [place] [address] [facility] [address] [place] [address] Sara Deutsch MA Scheduling Surgery Social History Tobacco Use Types Packs/Day Years Used Date Smoking Tobacco: Never Smokeless Tobacco: Never Alcohol Use Standard Drinks/Week Comments Yes 0 (1 standard drink = 0.6 oz pur e alcohol) very rare Interpersonal Safety Answer Date Record ed Physical Abuse 10/08/2024 Verbal Abuse 10/08/2024 Comments Unknown Sex and Gender Information Value Date Recorded Sex Assigned at Not on file Legal Sex Female 1:12 PM EST Gender Identity Not on file Sexual Orientation Not on file documented as of this encounter Progress Notes * Sara Deutsch MA - 12/18/2024 8:46 AM EDT Patient did accepted Lap Adrenalectomy surgery on 01/28 with With Krista Newman. * Sara Deutsch MA - 12/10/2024 10:41 AM EDT Placed call and spoke to Gt Bacon to schedule Adrenalectomy Surgery with Dr. Krista Gimenez. Willoffer pt 01/28 at 12pm with arrival time of 10:30am to [facility]. Patient was at work, but she asked me if I can't call her back tomorrow at 10am, she will be at home to answer the call. Patient stated she wants to pay fully attention to our conversation in regards of scheduling the surgery and the instructions prior to it. documented in this encounter Plan of Treatment Upcoming Encounters Date Type Department Care Team (Latest Contact Info) Description 01/28/2025 12:00 PM EDT Hospital Encounter [address] [address] Krista Newman MD [address] [place] [address] 01/28/2025 12:00 PM EDT - 01/28/2025 2:30 PM EDT Surgery [address] [phone] Krista Newman MD [address] [address] ADRENALECTOMY LAPAROSCOPIC - LEFT [01480 (CPT )] 02/10/2025 10:15 AM EDT Office Visit [facility] Hematology Oncology [address] [place] [phone] Chandrakant Vides MD [address] [place] [address] 02/11/2025 9:45 AM EDT Office Visit General Surgery [address] [phone] Krista Newman MD [address] [address] Scheduled Procedures Name Priority Associated Diagnoses Date/Ti me ADRENALECTOMY LAPAROSCOPIC Pheochromocytoma of left adrenal gland 01/28/2025 12:00 PM EDT documented as of this encounter Visit Diagnoses Not on filedocumented in this encounter Care Teams Fish Farm Manager Relationship Specialty Start Date End Date Deejay Meza MD [address] [place] [address] Dr [address] [place] PCP - General Internal Medicine 11/07/24 documented as of this encounter
[2024-12-18 09:22] VITALS: BP 128/84
== END 2024-12-18 10:19 | disposition home or self-care (01) ==
LOC: HO.HMCH 08:52
PROVIDERS: PCP Internal Medicine
DX: Z01.818 Encounter for other preprocedural examination (principal); E27.8 Other specified disorders of adrenal gland; I26.99 Other pulmonary embolism without acute cor pulmonale; I10 Essential (primary) hypertension; E03.9 Hypothyroidism, unspecified; R73.01 Impaired fasting glucose

== ENCOUNTER → 2024-12-19 10:39 | Outpatient (REF) | payer MEDICARE, BC, SELFPAY ==
--- NOTE | 2024-12-19 10:43 | ECG_ITS ---
Test Reason : preop Blood Pressure : */* mmHG Vent. Rate : 60 BPM Atrial Rate : 60 BPM P-R Int : 154 ms QRS Dur : 86 ms QT Int : 442 ms P-R-T Axes : 40 -24 45 degrees QTcB Int : 442 ms Normal sinus rhythm Normal ECG When compared with ECG of 24-Sep-2021 20:13, No significant change was found Referred By: Catarino Santos Electronically Signed By: LIZA LOUIE
--- OUTSIDE RECORDS SUMMARY | 2024-12-19 11:19 | XMS_ITS | Encounter Summary ---
Author Organization [facility] Address [address] [place] [address] Care Team Providers Care Salesperson Books Name Role Phone Deejay Meza MD Primary Care Provider + [phone] Reason for Visit * Reason Onset Date Comments Scheduling Surgery 12/10/2024 Encounter Details Date Type Department Care Team ([facility] st Contact Info) Description 12/10/2024 Telephone General Surgery - [place] [address] [facility] [address] [place] [address] Sara Deutsch MA Scheduling Surgery [...] 12pm with arrival time of 10:30am to [facility]. Patient was at work, but she asked [...] Description 01/28/2025 12:00 PM EDT Hospital Encounter [address] [address] Krista Newman MD [address] [place] [address] 01/28/2025 12:00 PM EDT - 01/28/2025 2:30 PM EDT Surgery [address] [phone] Krista Newman MD [address] [address] ADRENALECTOMY LAPAROSCOPIC - LEFT [19240 (CPT )] 02/10/2025 10:15 AM EDT Office Visit [facility] Hematology Oncology [address] [place] [phone] Chandrakant Vides MD [address] [place] [address] 02/11/2025 9:45 AM EDT Office Visit General Surgery [address] [phone] Krista Newman MD [address] [address] Scheduled Procedures Name Priority Associated Diagnoses Date/Ti me ADRENALECTOMY LAPAROSCOPIC Pheochromocytoma of left adrenal gland 01/28/2025 12:00 PM EDT documented as of this encounter Visit Diagnoses Not on filedocumented in this encounter Care Teams Salesperson Books Relationship Specialty Start Date End Date Deejay Meza MD [address] [place] [address] Dr [address] [place] PCP - General Internal Medicine 11/07/24 documented as of this encounter
--- OUTSIDE RECORDS SUMMARY | 2024-12-19 11:19 | XMS_ITS | Patient Health Record ---
[facility] [address] [place] [address] Care Team Providers Care Hat And Cap Sewer Name Role Phone Brenden Rosales MD Primary Care Provider Wai Ramsey [phone] Reason For Referral No Information Medications Medication [...] W/U Status Risk Notes Problem Verruca plantaris (30375574) Verruca Plantaris (078.19) Active confirmed Problem Disorder of joint of ankle and/or foot (726701460) Arthritis - Degenerative (719.97) Active confirmed Problem Acquired deformity of joint of big toe (disorder) (147770609) Hallux Limitus (735.8) Active confirmed Problem Pain in limb (98305785) Pain in Limb (729.5) Active confirmed Plan Of Treatment Pending Test Test Name Order Date [id number] Destruction, -06/06/2013 [id number] Destruction, -08/08/2013 Insurance Providers Payer Name Payer Address Payer Phone Subscriber Number Group Number Insured Name Patient Relationship to Insured Coverage Start Date Coverage End Date [facility] [address] [place] [address] [id number] PETERSON DRUMMOND Self - patient is the insured 9 Medical (General) History Medical History History ICD Code Back,Hip,and Knee pain Cholesterol Headaches High blood pressure Chicken pox Hypothyroidism Surgical History Surgery Date(Month/Year) section 1987,[address] Dangotes/ 1 Dr Travis agrcia surgery back surgery cataract surgery OD cataract surgery OS 2013
== END ==
LOC: HO.CARD 10:39
PROVIDERS: PCP Internal Medicine; Visit Provider Internal Medicine
DX: Z01.818 Encounter for other preprocedural examination (principal)
CPT/HCPCS: 93005

== ENCOUNTER → 2024-12-19 10:43 | Outpatient (BNV) | payer MEDICARE, BC, SELFPAY | PROVIDERS: PCP Internal Medicine; Visit Provider Internal Medicine | DX: Z13.6 Encounter for screening for cardiovascular disorders (principal); Z01.810 Encounter for preprocedural cardiovascular examination | CPT/HCPCS: 93010 ==

== ENCOUNTER 2024-12-24 10:04 | Outpatient (REF) | payer MEDICARE, BC, SELFPAY ==
[2024-12-24 10:35] LABS: MANUAL DIFF FLAG NO
--- OUTSIDE RECORDS SUMMARY | 2024-12-24 11:02 | XMS_ITS | Patient Health Record ---
[facility] Address [address] [place] [address] Care Team Providers Care Psychologist Personnel Name Role Phone Brenden Rosales MD Primary Care Provider Wai Ramsey [phone] Reason For Referral No Information Medications Medication [...] W/U Status Risk Notes Problem Verruca plantaris (80816680) Verruca Plantaris (078.19) Active confirmed Problem Disorder of joint of ankle and/or foot (631054253) Arthritis - Degenerative (719.97) Active confirmed Problem Acquired deformity of joint of big toe (disorder) (619274348) Hallux Limitus (735.8) Active confirmed Problem Pain in limb (34104514) Pain in Limb (729.5) Active confirmed Plan Of Treatment Pending Test Test Name Order Date [id number] Destruction, -06/06/2013 [id number]-Klun Destruction, -08/08/2013 Insurance Providers Payer Name Payer Address Payer Phone Subscriber Number Group Number Insured Name Patient Relationship to Insured Coverage Start Date Coverage End Date [facility] [address] [place] [address] [id number] PETERSON DRUMMOND Self - patient is the insured 9 Medical (General) History Medical History History ICD Code Back,Hip,and Knee pain Cholesterol Headaches High blood pressure Chicken pox Hypothyroidism Surgical History Surgery Date(Month/Year) section 1987,[address] Dangotes/ 1 Dr Travis garcia surgery back surgery cataract surgery OD cataract surgery OS 2013
--- OUTSIDE RECORDS SUMMARY | 2024-12-24 11:02 | XMS_ITS | Encounter Summary ---
Author Organization [facility] Address [address] [place] [address] Care Team Providers Care Vp Clinical Research Name Role Phone Deejay Meza MD Primary Care Provider + [phone] Reason for Visit * Reason Onset Date Comments Forms/questionnaires 11/27/2024 Encounter Details Date Type Department Care Team ([facility] st Contact Info) Description 11/27/2024 Telephone General Surgery - [place] [address] [facility] [address] [facility] [address] [place] [phone] Krista Newman MD [address] [facility] [address] [facility] [address] [place] [address] Forms/questionnaires Social History Tobacco Use Types Packs/Day Years [...] as of this encounter Progress Notes * Brittani Green - 11/29/2024 8:38 AM EDT Patient called again and asked if Dr. Newman can call her today before 10am and if not today tosee if she can call her on Monday at anytime. * Brittani Green - 11/27/2024 9:51 AM EDT PT called and said she is off of work tomorrow on 11/28 so she said can call her at anytime. documented in this encounter Plan of Treatment Upcoming Encounters Date Type Department Care Team (Latest Contact Info) Description 01/28/2025 12:00 PM EDT Hospital Encounter [facility] [place] [address] [place] [phone] Krista Newman MD [address] [address] 01/28/2025 12:00 PM EDT - 01/28/2025 2:30 PM EDT Surgery [address] [phone] Krista Newman MD [address] [address] ADRENALECTOMY LAPAROSCOPIC - LEFT [03150 (CPT )] 02/10/2025 10:15 AM EDT Office Visit [facility] Hematology Oncology [address] [place] [phone] Chandrakant Vides MD [address] [place] [address] 02/11/2025 9:45 AM EDT Office Visit General Surgery [facility] [address] [phone] Krista Newman MD [address] [address] Scheduled Procedures Name Priority Associated Diagnoses Date/Ti me ADRENALECTOMY LAPAROSCOPIC Pheochromocytoma of left adrenal gland 01/28/2025 12:00 PM EDT documented as of this encounter Visit Diagnoses Not on filedocumented in this encounter Care Teams Vp Clinical Research Relationship Specialty Start Date End Date Deejay Meza MD [address] [place] [address] [address] [place] PCP - General Internal Medicine 11/07/24 documented as of this encounter
[2024-12-24 11:04] LABS: Hematocrit 39.7 % (37.0-47.0); Hemoglobin 12.5 g/dl (12.0-16.0); Imm Gran Abs Auto 0.01 X10*3/uL (0.00-0.03); Imm Gran Pct Auto 0.2 % (0.0-0.4); Lymphocytes Absolute Auto 1.3 X10*3/uL (1.2-4.9); Mean Corpuscular HGB Conc 31.5 g/dl (31.0-35.0); Mean Corpuscular Hemoglobin 28.4 pg (27.0-33.0); Mean Corpuscular Volume 90.2 fL (80.0-98.0); NRBC Abs Auto 0.000 X10*3/uL (0.0-0.012); NRBC Pct Auto 0.0 /100WBC (0.0-0.2); Platelet Count 285 X10*3/uL (160-400); Red Blood Count 4.40 X10*6/uL (4.20-5.50); White Blood Count 5.1 X10*3/uL (4.8-10.8)
[2024-12-24 11:09] LABS: Hemoglobin A1C 132.5123 umol/L; Total Hemoglobin (HGBA1C) 3329.3228 umol/L
[2024-12-24 11:13] LABS: INTERNATIONAL NORM RATIO 1.4 (0.9-1.1); Prothrombin Time 15.6 SEC (10.9-12.4)
[2024-12-24 11:28] LABS: Appearance Urine Clear; Glucose Urine UA Negative (Negative); PH 5.5 (5.0-9.0); Specific Gravity - Urine 1.020 (1.005-1.025); UMIC TRIGGER UACC YES
[2024-12-24 11:49] LABS: Alanine Aminotransferase 13 U/L (0-31); Albumin Level 4.1 g/dL (3.5-5.0); Alkaline Phosphatase 63 U/L (39-117); Anion Gap 9 (12-20); Aspartate Amino Transferase 17 U/L (5-31); Blood Urea Nitrogen 11 mg/dL (9-16); Calcium 9.2 mg/dL (8.4-10.2); Carbon Dioxide 25 mmol/L (22-29); Chloride 112 mmol/L (96-108); Cholesterol 149 mg/dL (<200); Estimated Glomerular Filt Rate > 60; HDL Cholesterol 67 mg/dL (>40); Potassium 4.4 mmol/L (3.3-5.1); Sodium 142 mmol/L (135-145); Total Protein 6.8 g/dL (6.5-8.0); Triglycerides 39 mg/dL (<150)
[2024-12-24 12:22] LABS: Folate 4.2 ng/mL (> or = 4.0); Vitamin B12 1037 pg/mL (200-900)
== END 2024-12-24 10:05 | disposition home or self-care (01) ==
LOC: HO.LAB 10:04
DX: I10 Essential (primary) hypertension (principal); R73.01 Impaired fasting glucose; E27.8 Other specified disorders of adrenal gland; E53.8 Deficiency of other specified B group vitamins; F41.9 Anxiety disorder, unspecified; E66.3 Overweight; F32.9 Major depressive disorder, single episode, unspecified; E78.00 Pure hypercholesterolemia, unspecified; E03.9 Hypothyroidism, unspecified; E55.9 Vitamin D deficiency, unspecified; K90.0 Celiac disease; D64.9 Anemia, unspecified
CPT/HCPCS: 36415; 80053; 80061; 81001; 82306; 82607; 82746; 83036; 85025; 85610

== ENCOUNTER 2024-12-30 10:20 | Outpatient (AMB) | payer MEDICARE, BC, SELFPAY | END 2024-12-30 10:28 | disposition home or self-care (01) | LOC: HO.HMGAL 10:20 | PROVIDERS: PCP Internal Medicine; Visit Provider Registered Nurse Emergency | DX: J30.89 Other allergic rhinitis (principal) | CPT/HCPCS: 95117; 95165 ==

== ENCOUNTER → 2025-01-09 13:52 | Outpatient (BNVA) | payer MEDICARE, BC, SELFPAY | PROVIDERS: PCP Internal Medicine | DX: Z13.89 Encounter for screening for other disorder (principal) | CPT/HCPCS: 99211 ==

== ENCOUNTER → 2025-01-14 09:49 | Outpatient (BNVA) | payer MEDICARE, BC, SELFPAY | PROVIDERS: PCP Internal Medicine | DX: Z01.30 Encounter for examination of blood pressure without abnormal findings (principal) ==

== ENCOUNTER → 2025-01-16 09:57 | Outpatient (BNVA) | payer MEDICARE, BC, SELFPAY | PROVIDERS: PCP Internal Medicine | DX: Z01.30 Encounter for examination of blood pressure without abnormal findings (principal) ==

== ENCOUNTER → 2025-01-20 09:52 | Outpatient (BNVA) | payer MEDICARE, BC, SELFPAY | PROVIDERS: PCP Internal Medicine | DX: Z01.30 Encounter for examination of blood pressure without abnormal findings (principal) ==

== ENCOUNTER → 2025-01-23 09:53 | Outpatient (BNVA) | payer MEDICARE, BC, SELFPAY | PROVIDERS: PCP Internal Medicine | DX: Z01.30 Encounter for examination of blood pressure without abnormal findings (principal) ==

== ENCOUNTER 2025-02-04 09:43 | Outpatient (REF) | payer MEDICARE, BC, SELFPAY ==
[2025-02-04 11:39] LABS: Appearance Urine Clear; Glucose Urine UA Negative (Negative); PH 6.0 (5.0-9.0); Specific Gravity - Urine 1.015 (1.005-1.025); UMIC TRIGGER UACC YES
[2025-02-04 12:13] LABS: Folate 4.6 ng/mL (> or = 4.0); Vitamin B12 996 pg/mL (200-900)
[2025-02-04 12:45] LABS: Free T4 (Free Thyroxine) 1.31 ng/dL (0.71-1.85); Thyroid Stimulating Hormone 0.06 uIU/mL (0.32-4.0)
[2025-02-04 12:53] LABS: Anion Gap 11 (12-20)
[2025-02-04 13:00] LABS: Alanine Aminotransferase 18 U/L (0-31); Albumin Level 4.1 g/dL (3.5-5.0); Alkaline Phosphatase 63 U/L (39-117); Aspartate Amino Transferase 21 U/L (5-31); Blood Urea Nitrogen 13 mg/dL (9-16); Calcium 9.1 mg/dL (8.4-10.2); Carbon Dioxide 26 mmol/L (22-29); Chloride 111 mmol/L (96-108); Estimated Glomerular Filt Rate > 60; Potassium 3.9 mmol/L (3.3-5.1); Sodium 144 mmol/L (135-145); Total Protein 7.1 g/dL (6.5-8.0)
== END 2025-02-04 09:44 | disposition home or self-care (01) ==
LOC: HO.LAB 09:43
PROVIDERS: PCP Internal Medicine; Visit Provider Internal Medicine
DX: Z01.818 Encounter for other preprocedural examination (principal); E53.8 Deficiency of other specified B group vitamins; E03.9 Hypothyroidism, unspecified; D64.9 Anemia, unspecified; I10 Essential (primary) hypertension; D35.02 Benign neoplasm of left adrenal gland; D35.00 Benign neoplasm of unspecified adrenal gland; E55.9 Vitamin D deficiency, unspecified; R73.01 Impaired fasting glucose; R30.0 Dysuria; G43.909 Migraine, unspecified, not intractable, without status migrainosus; E78.00 Pure hypercholesterolemia, unspecified; G24.9 Dystonia, unspecified; M47.812 Spondylosis without myelopathy or radiculopathy, cervical region; M51.360 Other intervertebral disc degeneration, lumbar region with discogenic back pain only; G62.9 Polyneuropathy, unspecified; M17.11 Unilateral primary osteoarthritis, right knee; G47.00 Insomnia, unspecified; F41.9 Anxiety disorder, unspecified; F32.9 Major depressive disorder, single episode, unspecified; Z79.01 Long term (current) use of anticoagulants; Z79.890 Hormone replacement therapy; Z79.899 Other long term (current) drug therapy
CPT/HCPCS: 36415; 80053; 81001; 82306; 82607; 82746; 83036; 84439; 84443; 85025; 99212

== ENCOUNTER 2025-02-04 09:43 | Outpatient (AMB) | payer MEDICARE, BC, SELFPAY ==
--- NOTE | 2025-02-04 09:46 | MHC.PC.OV ---
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 Instructions: Doctor's Order gabapentin 600 mg PO BEDTIME levothyroxine 100 mcg PO DAILY 90 days lisinopril 2.5 mg PO DAILY 90 days mecobalamin (vitamin B12) 1,000 mcg sublingual DAILY 90 days metoprolol succinate ER 25 mg PO DAILY pravastatin 40 mg PO DAILY topiramate 25 mg PO BEDTIME Tobacco use date assessed: 02/04/25 Fall risk assessment: No Falls in past year Last assessed Fall Risk: 02/04/25 Dental Screening Dental Screen Date: 02/04/25 Did you have a dental visit in the last 12 months?: Yes Did you have a dental problem in the last 6 months where you did not have access to dental care?: No Was dental information given to patient?: Patient has dentist HPI HTN, hyperlipidemia HPI Details Patient comes in today for her follow up visit S/P laparoscopic L adrenalectomy last week and relates that her surgery went well overall States that she currently has some blisters on both ends of the surgical wound on her left lower lower abdomen Relates that these feel somewhat irritated but are not really painful and there are no active discharge from her abdominal wound She has an upcoming follow up appt with surgery next week States that she is now back on a regular diet and has had no issues with her bowel movements or urination She us currently just on Doxazosin 1 mg bid for her BP and is also back on her Eliquis States that she currently feels okay She denies any headaches or dizziness Denies any chest pains, no increased shortness of breath No nausea/vomiting, no abdominal pain No change in bowel habits noted [facility] Medical History (Updated 02/10/25 @ 04:56 by Deejay Meza MD) Pulmonary embolism Vitamin B12 deficiency Arthritis Hypothyroidism PONV (postoperative nausea and vomiting) Celiac disease Overweight (BMI 25.0-29.9) Reactive depression Anxiety Primary osteoarthritis of right knee Insomnia Migraine Dystonia Lumbar degenerative disc disease Impaired fasting glucose Cervical spondylosis Vitamin D deficiency Acquired hypothyroidism Pure hypercholesterolemia Benign essential hypertension Surgical History (Updated 02/10/25 @ 04:58 by Deejay Meza MD) History of total adrenalectomy History of arthroplasty of right knee (~10/24/20) H/O esophagogastroduodenoscopy H/O colonoscopy History of hand surgery History of lumbar surgery History of arthroplasty of left knee Family History Father Cancer Mother CRD (chronic renal disease) CVD (cardiovascular disease) Myocardial infarction Sister Sarcoma Sister Melanoma Social History Housing: Apartment Alcohol intake: current Alcohol intake frequency: does not drink Patient Tobacco Use Status: Never used Tobacco e-Cigarette/Vaping Use: Never Used Second Hand Smoke Exposure: Yes service: No Current occupational status: employed and retired Current occupational exposures/hazards: No Cognitive needs: No Hearing needs: No Vision needs: No Questionnaire PHQ-9 Over the last 2 weeks, how often have you been bothered by any of the following problems? Depression Screening Interpretation: Negative Depression Screening Done: Yes Source: Developed by Drs. Greg Manriquez, Dorothy Paula, Mckinley Renee and colleagues, with an educational jero from [employer]. Thrive Questionnaire Date Thrive assessed: 10/20/24 I am a: Patient What is your living situation today?: I have a steady place to live Within the past 12 months, did the food you bought not last and you didn't have the money to get more?: Never true Within the past 12 months, did you worry whether your food would run out before you got money to buy more?: Never true Do you have trouble paying for medicines?: No Do you have trouble getting transportation to medical appointments?: No Do you have trouble paying your heating and electricity bill?: No Do you have trouble taking care of your child, family member or friend?: No Do you have trouble with day-to-day activities such as bathing, preparing meals, shopping, managing finances, etc.?: No Are you currently unemployed and looking for a job?: No Are you interested in more education?: No Please select the resources that you would like help with: None Currently or been in a relationship where the following occur: No concerns reported THRIVE Score: 0 AUDIT C Alcohol Use Questionnaire (AUDIT-C) 1. How often do you have a drink containing alcohol?: Never 3. How often do you have six or more drinks on one occasion?: Never Total Score: 0 Score Reviewed/Action Taken: No LONG-7 AMB Questionnaire LONG-7 Date LONG - 7 assessed: 12/18/24 Source: Developed by Drs. Greg Manriquez, Dorothy Paula, Mckinley Renee and colleagues, with an educational jero from [employer]. Review of Systems Const Reports difficulty sleeping (better lately), Denies fatigue, Denies fever(s) and Denies headache(s) ENT Denies dysphagia, Denies dizziness, Denies otalgia, Denies headache(s), Reports neck pain (chronic - has right-sided cervical dystonia), Denies odynophagia and Denies sore throat Card Denies chest pain, Denies palpitations and Denies dyspnea Resp Denies chest congestion, Denies cough and Denies dyspnea GI Denies abdominal pain, Denies constipation, Denies dysphagia, Denies heartburn, Denies diarrhea, Denies nausea, Denies odynophagia and Denies vomiting Denies difficulty voiding, Denies nocturia, Denies dysuria and Denies urinary urgency Musc Details: (+) recurrent pain over the right arm and right leg, often with increased activity or exertion Reports back pain (on and off over the lower back), Reports neck pain (chronic - has right-sided cervical dystonia) and Reports radiating pain into limb (into the right arm at times) Skin/Breast Reports as per HPI and Denies rash Neuro Denies dizziness and Denies headache(s) Endo Denies fatigue and Denies palpitations Physical exam (Primary Care) Vital Signs: Last Vital Signs Pulse 76 02/04/25 09:47 BP 120/78 02/04/25 10:25 Pulse Ox 97 02/04/25 09:47 Oxygen Delivery Method Room Air 02/04/25 09:47 BMI result Body Mass Index 25.0 Tobacco/Smoking Status: Tobacco use Status Tobacco use date assessed 02/04/25 02/04/25 09:52 Patient Tobacco Use Status Never used Tobacco 02/04/25 09:52 e-Cigarette/Vaping Use Never Used 02/04/25 09:52 Depression Screening Interpretation: Negative Thrive Assessment: Date of Thrive Assessment Date Thrive assessed 10/20/24 02/04/25 09:52 Currently or been in a relationship where the following occur: No concerns reported Const General: no acute distress and alert HENMT Ears: TM's normal bilaterally and EAC's normal Throat: Yes posterior oropharynx normal and Yes tonsils normal (no TP congestion noted) Neck Neck: No lymphadenopathy and Yes tender Thyroid: Thyroid normal Resp Auscultation: clear to auscultation bilaterally, no rales and no wheezes Cardio Rate: regular rate Rhythm: regular rhythm Heart sounds: no murmurs GI Other: (+) healing wound on the left lower abdominal area - there are some blister-like lesions seen on both ends of the incision Palpation (GI): Soft to palpation and nontender Auscultation: normal bowel sounds General: Yes no CVA tenderness Back/Spine/Pelvis Back: no CVA tenderness Cervical Spine: cervical muscular tenderness (more on the right side) and Cervical spine tenderness (mild) Thoracic/Lumbar Spine: lumbar spinal tenderness (mild) Skin Rashes: no rashes Extrem General: Yes no clubbing, cyanosis or edema Right lower extremity: knee Details: tenderness; no swelling Coding Level of Care Code Est Pt Level 4 (87249) Diagnoses Pheochromocytoma of left adrenal gland D35.02 Laterality: left Benign essential hypertension I10 Pure hypercholesterolemia E78.00 Acquired hypothyroidism E03.9 Impaired fasting glucose R73.01 Migraine without status migrainosus, not intractable, unspecified migraine type G43.909 Migraine type: unspecified Status migrainosus presence: without status migrainosus Intractability: not intractable Dystonia G24.9 Cervical spondylosis M47.812 Degeneration of intervertebral disc of lumbar region with discogenic back pain M51.360 Disc-related pain type: discogenic back pain only Vitamin D deficiency E55.9 Vitamin B12 deficiency E53.8 Neuropathy G62.9 Primary osteoarthritis of right knee M17.11 Insomnia, unspecified type G47.00 Insomnia type: unspecified Anxiety F41.9 Reactive depression F32.9 Assessment & Plan Assessment & Plan (1) Pheochromocytoma: Code(s): D35.00 - Benign neoplasm of unspecified adrenal gland Category: Medical Qualifiers: Laterality: left Qualified Code(s): D35.02 - Benign neoplasm of left adrenal gland Plan: S/P left adrenalectomy by Dr. Krista Newman at [facility] last week on 01/28/2025 Patient states that her surgery went well overall although she currently has some blister-like lesions at both ends of the surgical incision on her left lower abdomen Will go ahead and start her empirically on Augmentin 500-125 mg Q 8 hours x 7 days Follow up with surgery as scheduled next week Her blood pressure remains well controlled today on her current blood pressure regimen of Doxazosin 1 mg BID Patient will also be sent for some follow-up labs DAVION today (2) Benign essential hypertension: Code(s): I10 - Essential (primary) hypertension Category: Medical Plan: Reinforced low sodium diet - goal is systolic BP of 120 mm or less Continue Doxazosin 1 mg BID She is reminded to continue monitoring her blood pressure regularly (3) Pure hypercholesterolemia: Code(s): E78.00 - Pure hypercholesterolemia, unspecified Category: Medical Plan: Reinforced low cholesterol diet Continue Pravastatin 40 mg QD Will recheck her labs and fasting lipids in 3 months for follow up (4) Acquired hypothyroidism: Code(s): E03.9 - Hypothyroidism, unspecified Category: Medical Plan: Continue Levothyroxine 100 mcg QD Will recheck her TFTs in 3 months for follow up (5) Impaired fasting glucose: Code(s): R73.01 - Impaired fasting glucose Category: Medical Plan: Her FBS was high at 130 mg/dl on her labs done a few months ago but her HgbA1c was normal at 5.6% Her HgbA1c has been normal at 5.7%, 5,4%, 5.3% and 5.6% when previously checked Reinforced low calorie diet/exercise as tolerated (6) Migraine: Code(s): G43.909 - Migraine, unspecified, not intractable, without status migrainosus Category: Medical Qualifiers: Migraine type: unspecified Status migrainosus presence: without status migrainosus Intractability: not intractable Qualified Code(s): G43.909 - Migraine, unspecified, not intractable, without status migrainosus Plan: Stable on prophylactic Rx Continue Topiramate 25 mg QHS and Sumatriptan 50 mg PRN Reinforced avoidance of migraine triggers Follow up with neurology as scheduled (7) Dystonia: Comment: Has cervical dystonia Code(s): G24.9 - Dystonia, unspecified Category: Medical Plan: Continue Gabapentin 300 mg 2 capsules (600 mg) daily at bedtime Follow up with neurology as scheduled (8) Cervical spondylosis: Code(s): M47.812 - Spondylosis without myelopathy or radiculopathy, cervical region Category: Medical Plan: Cervical spine x-rays done back on 02/12/2019 showed (+) multilevel degenerative changes with a mild 3 mm anterior subluxation of C3 with respect to C4 that is slightly increased from previous C-spine MRI done in 03/2012 He's had RFA x 2 with pain management over the past couple of years - he reported (+) significant relief of her neck symptoms initially but his neck symptoms have since regressed EMG & NCV done back in March 2022 revealed findings consistent with mild chronic right C5-C6 radiculopathy; nerve conduction studies came back completely normal He had C6-C7 fluoroscopy-guided parasagittal epidural steroid injection x 2 last year with (+) symptomatic relief Follow up with Pain Management as scheduled (9) Lumbar degenerative disc disease: Comment: S/P lumbar decompression surgery [place] [address] Zapata, with (+) significant relief of her acute lower back symptoms Code(s): M51.36 - Other intervertebral disc degeneration, lumbar region Category: Medical Qualifiers: Disc-related pain type: discogenic back pain only Qualified Code(s): M51.360 - Other intervertebral disc degeneration, lumbar region with discogenic back pain only Plan: Reinforced activity and weight-lifting restrictions (10) Vitamin D deficiency: Code(s): E55.9 - Vitamin D deficiency, unspecified Category: Medical Plan: Continue Vitamin D3 2000 units QD She is also on a combined Vitamin D and Calcium tablets, which contains Vitamin D of around 400 to 600 units per tablet (11) Vitamin B12 deficiency: Code(s): E53.8 - Deficiency of other specified B group vitamins Category: Medical Plan: Continue Vitamin B12 tablets 1000 mcg QD Will recheck her Vitamin B12 level in 3 months for follow up (12) Neuropathy: Comment: EMG & NCV done on 10/31/2017 revealed (+) moderately severe right peroneal neuropathy and 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 Code(s): G62.9 - Polyneuropathy, unspecified Category: Medical Plan: Patient still has recurrent right leg pain/symptoms but states that Gabapentin has been helping with her symptoms Follow up with neurology as scheduled (13) Primary osteoarthritis of right knee: Code(s): M17.11 - Unilateral primary osteoarthritis, right knee Category: Medical Plan: S/P right knee arthroplasty in October 2020 Follow up with orthopedics ([facility]) as scheduled (14) Insomnia: Code(s): G47.00 - Insomnia, unspecified Category: Medical Qualifiers: Insomnia type: unspecified Qualified Code(s): G47.00 - Insomnia, unspecified Plan: Sleep hygiene reinforced States that Gabapentin at bedtime was helping previously but has not helped at all recently Reports that she is still waking up at least 2 to 3 times a night at times for no particular reason Continue OTC Melatonin Q HS PRN (15) Anxiety: Code(s): F41.9 - Anxiety disorder, unspecified Category: Medical Plan: Patient feels that she is still doing well with her anxiety and no longer has to take any Hydroxyzine She used to get counseling with [facility] but states that she has not needed to do so in a while now (16) Reactive depression: Code(s): F32.9 - Major depressive disorder, single episode, unspecified Category: Medical Plan: Improved - states that she is no longer taking Mirtazapine and feels that she is doing well off her meds so far Plan Follow-up in 3 months Orders: Orders Complete Blood Count Auto Diff 02/04/25 D35.00 - Benign neoplasm of unspecified adrenal gland, D64.9 - Anemia, unspecified, I10 - Essential (primary) hypertension Complete Blood Count Auto Diff 3 Months D64.9 - Anemia, unspecified Comprehensive [place]. Panel Fast 3 Months E78.00 - Pure hypercholesterolemia, unspecified Thyroid Stimulating Hormone 3 Months E03.9 - Hypothyroidism, unspecified Vitamin B12 and Folate 3 Months E53.8 - Deficiency of other specified B group vitamins Comprehensive Met. Panel 02/04/25 D35.00 - Benign neoplasm of unspecified adrenal gland, I10 - Essential (primary) hypertension Lipid Panel 3 Months E78.00 - Pure hypercholesterolemia, unspecified Hemoglobin A1c 3 Months R73.01 - Impaired fasting glucose Free T4 (Free Thyroxine) 3 Months E03.9 - Hypothyroidism, unspecified Vitamin D 25-OH Total 3 Months E55.9 - Vitamin D deficiency, unspecified Medications: New amoxicillin-pot clavulanate 500-125 mg (Augmentin) 1 tab PO Q8H 21 tabs 0RF 7 days
[2025-02-04 09:47] VITALS: BP 120/96; PULSE 76; O2SAT 97; BMI 25.0
[2025-02-04 10:25] VITALS: BP 120/78
--- OUTSIDE RECORDS SUMMARY | 2025-02-04 11:38 | XMS_ITS | Clinical Summary ---
Author Organization [facility] Address [address] [place] [address] Phone Care Team Providers Care Campaign Management Senior Manager Name Role Phone Deejay Meza MD Primary Care Provider Allergies No known active allergies Medications gabapentin (NEURONTIN) 600 mg tablet Take 1 tablet (600 mg total) by mouth at bedtime. Active levothyroxine (SYNTHROID, LEVOTHROID) 100 mcg tablet Take 1 tablet (100 mcg total) by mouth 1 (one) time each day before breakfast. Active topiramate (TOPAMAX) 25 mg tablet Take 1 tablet (25 mg total) by mouth at bedtime. Active pravastatin (PRAVACHOL) 40 mg tablet Take 1 tablet (40 mg total) by mouth at bedtime. Active cyanocobalamin (VITAMIN B-12) 1,000 mcg tablet Take 1 tablet (1,000 mcg total) by mouth 1 (one) time each day. Active apixaban (ELIQUIS) 5 mg tablet Take 1 tablet (5 mg total) by mouth 2 (two) times a day. 60 tablet 11/08/19 25 Active doxazosin (CARDURA) 1 mg tablet Take 1 tablet (1 mg total) by mouth at bedtime. 01/20/20 25 Active acetaminophen (TYLENOL) 500 mg tablet Take 2 tablets (1,000 mg total) by mouth every 8 (eight) hours for 10 days. 30 tablet 09 025 Active docusate sodium (COLACE) 100 mg capsule Take 1 capsule (100 mg total) by mouth 2 (two) times a day for 7 days. 14 each 01/30/20 Active oxyCODONE (ROXICODONE) 5 mg immediate release tabletIndications :Postoperative pain,Benign pheochromocytoma, left,H/O partial adrenalectomy ([facility] V24) Take 1 tablet (5 mg total) by mouth every 6 (six) hours if needed for severe pain. Max Daily Amount: 20 mg 12 tablet 01/30/20 Active lisinopriL (PRINIVIL,ZESTRIL ) 2.5 mg tablet Take 1 tablet (2.5 mg total) by mouth 1 (one) time each day. Discontinued Active Problems Problem Noted Date Diagnosed Date Pheochromocytoma of left adrenal gland Benign pheochromocytoma, left 2024 Acute deep vein thrombosis ( DVT) of both lower extremities ([facility] V24, [facility] V28) 2024 Bilateral pulmonary embolism ([facility] V24, [facility]/ [facility] V28) 10/08/2024 Encounters Date Type Department Care Team Description 01/28/2025 12:42 PM EDT Anesthesia Event [address] [phone] Lamine Cole MD Hard, Shannon, CRNA 01/28/2025 12:00 PM EDT - 01/28/2025 2:30 PM EDT Surgery [address] [phone] Krista Newman MD LAPAROSCOPIC LEFT ADRENALECTOMY [01813 (CPT )] 01/28/2025 10:19 AM EDT - 01/29/2025 3:34 PM EDT Hospital Encounter Intermediate Care Unit [address] [place] [phone] Krista Newman MD Kokosadze, Estate, MD Postoperative pain (Primary Dx); Pheochromocytoma of left adrenal gland; Benign pheochromocytoma, left; H/O partial adrenalectomy ([facility] V24) Discharge Disposition: Home or Self Care 01/17/[address] [phone] Krista Newman MD 12/11/[address] [address] Krista Newman MD 12/10/[address] [phone] Sara Deutsch MA 12/03/2024 10:15 AM EDT Office Visit [address] [phone] Krista Newman MD Pheochromocytoma of left adrenal gland (Primary Dx) 11/27/[address] [phone] Krista Newman MD 11/18/[address] [address] Krista Newman MD 11/12/2024 11:00 AM EDT Consult [address] [phone] Krista Newman MD Pheochromocytoma of left adrenal gland (Primary Dx); Adrenal mass (CMS/HCC V24); Other secondary hypertension; Other pulmonary embolism without acute cor pulmonale, unspecified chronicity (CMS/HCC V24, CMS/HCC V28); History of DVT (deep vein thrombosis); Anticoagulated 11/12/2024 10:05 AM EDT Lab Draw Station - [address] [address] Pheochromocytoma, benign, left (Primary Dx) 2024 1:30 PM EDT Office Visit Hematology Oncology [address] [place] [phone] Chandrakant Odell MD Benign pheochromocytoma, left (Primary Dx); Bilateral pulmonary embolism ([facility] V24, [facility] V28); Acute deep vein thrombosis (DVT) of other specified vein of both lower extremities ([facility] V24, [facility] V28); Hemochromatosis, hereditary ([facility] V24) from Last 3 Months Surgical History Surgery Date Site/Laterality Comments TOTAL KNEE ARTHROPLASTY Bilateral SECTION, CLASSIC x2 BACK SURGERY lumbar Medical History Medical History Date Comments HTN (hypertension) Hypothyroidism Hyperlipidemia Dystonia rest Migraines PONV (postoperative nausea and vomiting) Delayed emergence from general anesthesia Pulmonary emboli ([facility] V24, [facility] V28) september 2024 Adrenal mass ([facility] V24) Social History Tobacco Use Types Packs/Day Years Used Date Smoking Tobacco: Never Smokeless Tobacco: Never Alcohol Use Standard Drinks/Week Comments Yes 0 (1 standard drink = 0.6 oz pur e alcohol) very rare Interpersonal Safety Answer Date Record ed Physical Abuse 01/28/2025 Verbal Abuse 01/28/2025 Comments No Sex and Gender Information Value Date Recorded Sex Assigned at Not on file Legal Sex Female 1:12 PM EST Gender Identity Not on file Sexual Orientation Not on file Obstetrics History Last Filed Vital Signs Vital Sign Reading Time Taken Comments Blood Pressure 111/67 01/29/2025 11:15 AM EDT Pulse 62 01/29/2025 11:15 AM EDT Temperature 36.7 C (98.1 F) 01/29/2025 11:15 AM EDT Respiratory Rate 15 01/29/2025 11:15 AM EDT Oxygen Saturation 97% 01/29/2025 11:15 AM EDT Inhaled Oxygen Concentration - - Weight 65.8 kg (145 lb) 01/28/2025 10:35 AM EDT Height 162.6 cm (5' 4.02 ) 01/28/2025 10:35 AM E DT Body Mass Index 24.88 01/28/2025 10:35 AM EDT Plan of Treatment Upcoming Encounters Date Type Department Care Team (Late st Contact Info) Description 02/10/2025 10:15 AM EDT Office Visit Hematology Oncology [address] [place] [address] Gene-Chandrakant Escoabr MD [address] [place] [address] 02/11/2025 9:45 AM EDT Office Visit General Surgery - [place] [address] [facility] [address] [place] [address] Krista Newman MD [address] [place] [address] Health Maintenance Due Date Last Done Comments Breast Cancer Screening 1960 Pneumococcal Vaccine: 50+ Years (1 of 1 - PCV) 2008 RSV Immunization Adult Patients (1 - Risk 60-74 years 1-dose series) 2018 Depression Screening 05/15/2024 Cholesterol Screening (Lipid Panel) 10/08/2024 Colorectal Cancer Screening: Colonoscopy 10/08/2024 Hepatitis C Screening 10/08/2024 Medicare Annual Wellness Visit 10/08/2024 Osteoporosis Screening (Bone Density Screening) 10/08/2024 Social Influencers of Health Screening 10/08/2024 COVID-19 Vaccine ( season) 2025 03/26/2024, 03/07/2023, 03/22/2022, Additional history exists Influenza Vaccine (#1) 2025 , 03/07/2023, 03/22/2022, Additional history exists Falls Risk Assessment 01/29/2026 01/29/2025 Hypertension/CHF/CAD Annual BMP Blood Test 01/29/2026 01/29/2025, 01/28/2025, 11/08/2024, Additional history exists DTaP,Tdap,and Td Vaccines (2 - Td or Tdap) 10/06/2026 10/06/2016 Zoster Vaccines Completed 04/22/2020, 02/08/2020 HIB Vaccines Aged Out No longer eligi ble based on patient's age to complete this topic HPV Vaccines Aged Out No longer eligi ble based on patient's age to complete this topic Hepatitis A Vaccines Aged Out No long er eligible based on patient's age to complete this topic Hepatitis B Vaccines Aged Out No long er eligible based on patient's age to complete this topic IPV Vaccines Aged Out No longer eligi ble based on patient's age to complete this topic MMR Vaccines Aged Out No longer eligi ble based on patient's age to complete this topic Meningococcal ACWY Vaccine Aged Out N o longer eligible based on patient's age to complete this topic Meningococcal B Vaccine Aged Out No l onger eligible based on patient's age to complete this topic RSV Immunization Patients Under 20 months Aged Out No longer eligible based on patient's age to complete this topic Varicella Vaccines Aged Out No longer eligible based on patient's age to complete this topic Medical Devices Implanted Type Area Spear Fisher Device Identifier Shelf Expiration Date Model / Serial / Lot Joints Knee Joints Knee Bilateral: Knee Spinal Hardware Spinal Hardware N/A: Spine Lumbar Procedures Procedure Name Priority Date/Time Associated Diagnosis Comments CBC WITH AUTO DIFFERENTIAL Routine 01/29/2025 6:06 AM EDT CBC AND DIFFERENTIAL Routine 01/29/2025 6:06 AM EDT COMPREHENSIVE METABOLIC PANEL Routine 01/29/2025 6:06 AM EDT OXYGEN THERAPY, ADULT Routine 01/28/2025 3:18 PM EDT TH AN ENDOTRACHEAL(NO CHARGE) Routine 01/28/2025 1:20 PM EDT TH AN ARTERIAL LINE (CHARGE) Routine 01/28/2025 1:15 PM EDT [place] LAP SURG W ADRENALECTOMY/EXP ADRENAL GLAND TRANSABDOMINAL/LUMB AR/DORSAL 01/28/2025 12:43 PM EDT Pheochromocytoma of left adrenal gland Special Needs Laparoscopic Adrenalectomy (Left). Asking 120 Minutes for this case. Patient will be Inpatient after surgery. CBC WITH AUTO DIFFERENTIAL Routine 01/28/2025 11:04 AM EDT TYPE AND SCREEN Routine 01/28/2025 11:04 AM EDT CBC AND DIFFERENTIAL Routine 01/28/2025 11:04 AM EDT COMPREHENSIVE METABOLIC PANEL Routine 01/28/2025 11:04 AM EDT CATECHOLAMINES, FRACTIONATED WITH CREATININE URINE 24H Routine 11/12/2024 10:04 AM EDT Pheochromocytoma , benign, left CBC WITH AUTO DIFFERENTIAL Routine 11/08/2024 10:44 AM EDT Benign neoplasm of left adrenal gland Benign pheochromocytoma , left Hemochromatosis, hereditary (CMS/HCC V24) COMPREHENSIVE METABOLIC PANEL Routine 11/08/2024 10:44 AM EDT Benign neoplasm of left adrenal gland Benign pheochromocytoma , left Hemochromatosis, hereditary (CMS/HCC V24) LACTATE DEHYDROGENASE Routine 11/08/2024 10:44 AM EDT Benign neoplasm of left adrenal gland Benign pheochromocytoma , left Hemochromatosis, hereditary (CMS/HCC V24) CARDIOLIPIN ANTIBODIES, IGG, IGM AND IGA Routine 11/08/2024 10:44 AM EDT Benign neoplasm of left adrenal gland Benign pheochromocytoma , left Hemochromatosis, hereditary (CMS/HCC V24) CATECHOLAMINES, FRACTIONATED, PLASMA Routine 11/08/2024 10:44 AM EDT Benign neoplasm of left adrenal gland Benign pheochromocytoma , left Hemochromatosis, hereditary (CMS/HCC V24) FERRITIN Routine 11/08/2024 10:44 AM EDT Benign neoplasm of left adrenal gland Benign pheochromocytoma , left Hemochromatosis, hereditary (CMS/HCC V24) IRON AND TIBC Routine 11/08/2024 10:44 AM EDT Benign neoplasm of left adrenal gland Benign pheochromocytoma , left Hemochromatosis, hereditary (CMS/HCC V24) BETA 2 GLYCOPROTEIN 1 ANTIBODY, IGA Routine 11/08/2024 10:44 AM EDT Benign neoplasm of left adrenal gland Benign pheochromocytoma , left Hemochromatosis, hereditary (CMS/HCC V24) BETA 2 GLYCOPROTEIN 1 ANTIBODY, IGM Routine 11/08/2024 10:44 AM EDT Benign neoplasm of left adrenal gland Benign pheochromocytoma , left Hemochromatosis, hereditary (CMS/HCC V24) BETA 2 GLYCOPROTEIN 1 ANTIBODY, IGG Routine 11/08/2024 10:44 AM EDT Benign neoplasm of left adrenal gland Benign pheochromocytoma , left Hemochromatosis, hereditary ([facility] V24) CBC AND DIFFERENTIAL Routine 11/08/2024 10:44 AM EDT Benign neoplasm of left adrenal gland Benign pheochromocytoma , left Hemochromatosis, hereditary ([facility] V24) from Last 3 Months Results * (ABNORMAL) CBC auto differential (01/29/2025 6:06 AM EDT) Only the most recent of3 resultswithin the time period is included. WBC 11.0(H) 4.8 - 10.8 K/mcL LAB HEMETOLOGY METHOD 01/29/2025 6:49 AM [facility] RBC 4.00 3.80 - 4.80 M/mcL LAB HEMETOLOGY METHOD 01/29/2025 6:49 AM [facility] Hemoglobin 11.1(L) 11.5 - 16.0 g/dL LAB HEMETOLOGY METHOD 01/29/2025 6:49 AM [facility] Hematocrit 34.8(L) 35.0 - 47.0 % LAB HEMETOLOGY METHOD 01/29/2025 6:49 AM [facility] MCV 87.4 79.0 - 98.0 FL LAB HEMETOLOGY METHOD 01/29[facility]2025 6:[facility] MCH 27.9 27.0 - 32.0 pcg LAB HEMETOLOGY METHOD 01/29/2025 6:49 AM [facility] MCHC 31.9(L) 32.0 - 37.0 g/dL LAB HEMETOLOGY METHOD 01/29/2025 6:49 AM [facility] RDW 14.1 11.0 - 15.0 % LAB HEMETOLOGY METHOD 01/29/2025 6:49 AM [facility] Platelets 259 130 - 400 K/mcL LAB HEMETOLOGY METHOD 01/29/2025 6:49 AM [facility] MPV 10.4 7.0 - 11.0 FL LAB HEMETOLOGY METHOD 01/29/2025 6:49 AM [facility] NRBC 0.0 <1.0 % LAB HEMETOLOGY METHOD 01/29/2025 6:49 AM [facility] NRBC Absolute 0.00 <0.10 K/mcL LAB HEMETOLOGY METHOD 01/29/2025 6:49 AM [facility] Neutrophils Relative 83.9 % LAB HEMETOLOGY METHOD 01/29/2025 6:49 AM [facility] Lymphocytes Relative 9.5 % LAB HEMETOLOGY METHOD 01/29/2025 6:49 AM [facility] Monocytes Relative 5.7 % LAB HEMETOLOGY METHOD 01/29/2025 6:49 AM [facility] Eosinophils Relative 0.1 % LAB HEMETOLOGY METHOD 01/29/2025 6:49 AM [facility] Basophils Relative 0.4 % LAB HEMETOLOGY METHOD 01/29/2025 6:49 AM [facility] Immature Granulocytes Relative 0.4 % LAB HEMETOLOGY METHOD 01/29/2025 6:49 AM [facility] Neutrophils Absolute 9.21(H) 1.50 - 7.00 K/mcL LAB HEMETOLOGY METHOD 01/29/2025 6:49 AM [facility] Lymphocytes Absolute 1.04 1.00 - 5.00 K/mcL LAB HEMETOLOGY METHOD 01/29/2025 6:49 AM [facility] Monocytes Absolute 0.63 0.20 - 1.00 K/mcL LAB HEMETOLOGY METHOD 01/29/2025 6:49 AM EDT [facility] Eosinophils Absolute 0.01 0.00 - 0.50 K/[facility] LAB HEMETOLOGY METHOD 01/29/2025 6:49 AM EDT [facility] Basophils Absolute 0.04 0.00 - 0.20 K/mcL LAB HEMETOLOGY METHOD 01/29/2025 6:49 AM EDT [facility] Immature Granulocytes Absolute 0.04(H) 0.00 - 0.03 K/mcL LAB HEMETOLOGY METHOD 01/29/2025 6:49 AM EDT [facility] Blood Venous blood specimen / Unknown Venipuncture / Unknown 01/29/2025 6:06 AM EDT 01/29/2025 6:13 AM EDT Stacey CROW LAB BLOOD ORDERABLES Final Re sult [facility] [address] [place] [address], [place] [phone] * (ABNORMAL) Comprehensive metabolic panel (01/29/2025 6:06 AM EDT) Only the most recent of3 resultswithin the time period is included. Sodium 137 133 - 145 mmol/L LAB CHEMISTRY METHOD 01/29/2025 7:07 AM [facility] Potassium 3.6 3.5 - 5.5 mmol/L LAB CHEMISTRY METHOD 01/29/2025 7:07 AM [facility] Chloride 107 96 - 110 mmol/L LAB CHEMISTRY METHOD 01/29/2025 7:07 AM [facility] CO2 23 21 - 32 mmol/L LAB CHEMISTRY METHOD 01/29/2025 7:07 AM [facility] Anion Gap 7 3 - 11 LAB CHEMISTRY METHOD 01/29/2025 7:07 AM [facility] Glucose 78 70 - 100 mg/dL LAB CHEMISTRY METHOD 01/29/2025 7:07 AM [facility] BUN 11 5 - 25 mg/dL LAB CHEMISTRY METHOD 01/29/2025 7:07 AM [facility] Creatinine 0.44(L) 0.50 - 1.10 mg/dL LAB CHEMISTRY METHOD 01/29/2025 7:07 AM [facility] eGFR 107 >=60 mL/min/1. 73m2 LAB CHEMISTRY METHOD 01/29/2025 7:07 AM [facility] Comment:Calculation based on the Chronic Kidney Disease Epidemiology Collaboration (CKD-EPI) equation refit without adjustment for race. BUN/Creatinine Ratio 25.0 LAB CHEMISTRY METHOD 01/29/2025 7:07 AM [facility] Calcium 8.6 8.5 - 10.5 mg/dL LAB CHEMISTRY METHOD 01/29/2025 7:07 AM [facility] AST (SGOT) 14 10 - 42 unit/L LAB CHEMISTRY METHOD 01/29/2025 7:07 AM [facility] ALT (SGPT) 17 10 - 60 unit/L LAB CHEMISTRY METHOD 01/29/2025 7:07 AM [facility] Alkaline Phosphatase 62 42 - 121 unit/L LAB CHEMISTRY METHOD 01/29/2025 7:07 AM [facility] Total Protein 5.8(L) 6.0 - 8.0 g/dL LAB CHEMISTRY METHOD 01/29/2025 7:07 AM [facility] Albumin 3.1(L) 3.2 - 5.0 g/dL LAB CHEMISTRY METHOD 01/29/2025 7:07 AM [facility] Total Bilirubin 0.5 0.0 - 1.4 mg/dL LAB CHEMISTRY METHOD 01/29/2025 7:07 AM [facility] Blood Venous blood specimen / Unknown Venipuncture / Unknown 01/29/2025 6:06 AM EDT 01/29/2025 6:13 AM EDT Krista Newman MD LAB BLOOD ORDERABLES Fi nal Result [facility] [address] [place] [address], [place] [phone] * TH AN ENDOTRACHEAL(NO CHARGE) (01/28/2025 1:20 PM EDT) Stacey Aguayo CRNA - 01/28/2025 1:20 PM EDT Stacey Jose CRNA 01/28/2025 1:21 PM General Information and Staff Patient location during procedure: OR Anesthesiologist: Bossman Mckenzie MD Resident/BOARD STACKER: Stacey Jose CRNA Performed: resident/BOARD STACKER/CAA Performed by: Stacey Jose CRNA Authorized by: Bossman Mckenzie MD Intubation Airway not difficult Urgency: elective Final Airway Details Successful airway: ETT Cuffed: yes Successful intubation technique: direct laryngoscopy Endotracheal tube insertion site: oral Blade: Diego Blade size: #3 ETT size (mm): 7.0 Cormack-Lehane Classification: grade I - full view of glottis Placement verified by: chest auscultation and capnometry Measured from: lips ETT to lips (cm): 21 Number of attempts at approach: 1 Number of other approaches attempted: 0Final airway type: endotracheal airway Indications and Patient Condition Indications for airway management: anesthesia Spontaneous ventilation: present Sedation level: Yes Preoxygenated: yes Soft Tissue Damage: No Dentition Unchanged: Yes Patient position: sniffing Mask difficulty assessment: 2 - vent by mask + OA or adjuvant +/- NMBA Start Time: 01/28/2025 1:20 PMStop Time: 01/28/2025 1:20 PM Bossman Mckenzie MD ANESTHESIA ORDERABLES Final Re sult * TH AN ARTERIAL LINE (CHARGE) (01/28/2025 1:15 PM EDT) Stacey Aguayo CRNA - 01/28/2025 1:15 PM EDT Stacey Jose CRNA 01/28/2025 1:16 PM Arterial Line Performed by: Stacey Jose CRNA Authorized by: Bossman Mckenzie MD Consent: Written consent obtained. Risks and benefits: risks, benefits and alternatives were discussed Consent given by: patient Patient understanding: patient states understanding of the procedure being performed Patient consent: the patient's understanding of the procedure matches consent given Procedure consent: procedure consent matches procedure scheduled Relevant documents: relevant documents present and verified Required items: required blood products, implants, devices, and special equipment available Patient identity confirmed: arm band Time out: Immediately prior to procedure a time out was called to verify the correct patient, procedure, equipment, presidential support specialist and site/side marked as required. Preparation: Patient was prepped and draped in the usual sterile fashion. Indications: hemodynamic monitoring Location: left radial Anesthesia method: geta. Needle gauge: 20 Seldinger technique: Seldinger technique used (with US) Number of attempts: 1 Post-procedure: dressing applied Post-procedure CMS: normal and unchanged Patient tolerance: patient tolerated the procedure well with no immediate complications Staffing Anesthesiologist: Bossman Mckenzie MD us Bossman Mckenzie MD ANESTHESIA ORDERABLES Final Re sult * Type and screen (01/28/2025 11:04 AM EDT) ABO Group A 01/28/2025 12:12 PM EDT [facility] Rh Type Negative 01/28/2025 12:12 PM EDT [facility] Antibody Screen Negative 01/28/2025 12:12 PM EDT [facility] Blood Venous blood specimen / Unknown Venipuncture / Unknown 01/28/2025 11:04 AM EDT 01/28/2025 11:13 AM EDT us Krista Newman MD LAB BLOOD BANK TEST ORD ERABLES Final Result [facility] [address] [place] [address], [place] [phone] * (ABNORMAL) Catecholamines fractionated with creatinine, urine 24h (11/12/2024 10:04 AM EDT) Pathologist [facility] Urine Volume 1,500 600 - 2000 mL 11/19/2024 10:18 AM EDT [facility] Creatinine 24 Hr Urine 0.6(L) 0.8 - 1.8 gm/24h 11/19/2024 10:18 AM EDT [facility] Norepinephrine 24 Hr Urine 128(H) 15 - 80 ug/day 11/19/2024 10:18 AM EDT [facility] Epinephrine 24 hour Urine 131(H) 0 - 20 ug/day 11/19/2024 10:18 AM EDT [facility] Dopamine 24 hour Urine 159 65 - 400 ug/day 11/19/2024 10:18 AM EDT [facility] Catecholamine Total 259(H) 15 - 100 ug/day 11/19/2024 10:18 AM EDT [facility] Comment: This test was developed and the performance characteristics determined by [facility]. It has not been cleared or approved by the FDA. The laboratory is regulated under CLIA as qualified to perform high-complexity testing. This test is used for patient testing purposes. It should not be regarded as investigational or for research. Test performed at [facility], [address], [place] [address] Chioma Spears MD, PhD - [employer] Urine Urine specimen from urethra / Unknown Non-blood Collection / Unknown 11/12/2024 10:04 AM EDT 11/12/2024 4:42 PM EDT Chandrakant Vides MD LAB URINE ORDERABLE S Final Result [facility] [address] [place] [address] * Beta 2 glycoprotein 1 antibody, IGM (11/08/2024 10:44 AM EDT) [facility] Beta 2 Glycoprotein I IgM Antibody <2.4 <7.0 U/mL 11/11/2024 2:34 PM EDT [facility] Comment: INTERPRETATION: Negative Test performed at [facility], [address], [place] [address] Chioma Spears MD, PhD - [employer] Blood Venous blood specimen / Unknown Venipuncture / Unknown 11/08/2024 10:44 AM EDT 11/08/2024 11:08 AM EDT Chandrakant Vides MD LAB BLOOD ORDERABLE S Final Result [facility] [address] [place] [address] * Beta 2 glycoprotein 1 antibody, IGG (11/08/2024 10:44 AM EDT) Beta 2 Glycoprotein I IgG Antibody <0.8 <7.0 U/mL 11/11/2024 2:34 PM EDT [facility] Comment: INTERPRETATION: Negative Test performed at [facility], [address] [place] [address] Chioma Spears MD, PhD - [employer] Blood Venous blood specimen / Unknown Venipuncture / Unknown 11/08/2024 10:44 AM EDT 11/08/2024 11:08 AM EDT us Sublenny Vides MD LAB BLOOD ORDERABLE S Final Result [facility] [address] [place] [address] * Beta 2 glycoprotein 1 antibody, IGA (11/08/2024 10:44 AM EDT) Beta 2 Glycoprotein I IgA Antibody 1.3 <7.0 U/mL 11/11/2024 2:34 PM EDT [facility] Comment: INTERPRETATION: Negative Test performed at [facility], [address] [place] [address] Chioma Spears MD, PhD - [employer] Blood Venous blood specimen / Unknown Venipuncture / Unknown 11/08/2024 10:44 AM EDT 11/08/2024 11:08 AM EDT Chandrakant Vides MD LAB BLOOD ORDERABLE S Final Result [facility] [address] [place] [address] * (ABNORMAL) Catecholamines, fractionated, plasma (11/08/2024 10:44 AM EDT) Epinephrine 1081(H) pg/mL 11/19/2024 7:37 PM EDT [facility] Comment: Reference Range: SUPINE: <58 UPRIGHT: <82 Norepinephrine 2244(H) pg/mL 11/19/2024 7:37 PM EDT [facility] Comment: Reference Range: SUPINE: 149-564 UPRIGHT: 199-937 Dopamine 69(H) pg/mL 11/19/2024 7:37 PM EDT [facility] Comment: Reference Range: SUPINE: <16 UPRIGHT: <27 Catecholamine Plasma 3394(H) pg/mL 11/19/2024 7:37 PM EDT [facility] Comment: Reference Range: SUPINE: <632 UPRIGHT: <1046 Due to stress, plasma catecholamine levels are generally unreliable in infants and small children. Urinary catecholamine assays are more reliable. This test was developed and its analytical performance characteristics have been determined by [facility]. It has not been cleared or approved by the FDA. This assay has been validated pursuant to the CLIA regulations and is used for clinical purposes. Test Performed at: [facility] [address] [address] Darío Montalvo MD, PhD, JOSE Blood Venous blood specimen / Unknown Venipuncture / Unknown 11/08/2024 10:44 AM EDT 11/08/2024 11:07 AM EDT Chandrakant Vides MD LAB BLOOD ORDERABLE S Final Result [facility] [address] [place] [address] * Iron and TIBC (11/08/2024 10:44 AM EDT) Iron 94 40 - 150 mcg/dL LAB CHEMISTRY METHOD 11/08/2024 12:25 PM EDT [facility] TIBC 339 250 - 450 mcg/dL LAB CHEMISTRY METHOD 11/08/2024 12:25 PM EDT [facility] Iron Saturation 28 15 - 50 % LAB CHEMISTRY METHOD 11/08/2024 12:25 PM EDT [facility] Blood Venous blood specimen / Unknown Venipuncture / Unknown 11/08/2024 10:44 AM EDT 11/08/2024 11:08 AM EDT us Chandrakant Vides MD LAB BLOOD ORDERABLE S Final Result Performing Organization Address [facility]/ZIP Co de Phone Number [facility] [address] [place] [address], * Cardiolipin antibodies, IgG, IgM and IgA (11/08/2024 10:44 AM EDT) Cardiolipin Antibody Screen Negative Negative LAB CHEMISTRY METHOD 11/12/2024 12:24 PM EDT [facility] Blood Venous blood specimen / Unknown Venipuncture / Unknown 11/08/2024 10:44 AM EDT 11/08/2024 11:08 AM EDT us Chandrakant Vides MD LAB BLOOD ORDERABLE S Final Result [facility] [address] [place] [address], [place] [phone] * Lactate dehydrogenase (11/08/2024 10:44 AM EDT) LDH 152 120 - 246 unit/L LAB CHEMISTRY METHOD 11/08/2024 12:15 PM EDT [facility] Blood Venous blood specimen / Unknown Venipuncture / Unknown 11/08/2024 10:44 AM EDT 11/08/2024 11:08 AM EDT Chandrakant Vides MD LAB BLOOD ORDERABLE S Final Result [facility] [address] [place] [address], [place] [phone] * Ferritin (11/08/2024 10:44 AM EDT) [facility] Ferritin 21 8 - 252 ng/mL LAB CHEMISTRY METHOD 11/08/2024 12:25 PM EDT [facility] Blood Venous blood specimen / Unknown Venipuncture / Unknown 11/08/2024 10:44 AM EDT 11/08/2024 11:08 AM EDT Sublenny Vides MD LAB BLOOD ORDERABLE S Final Result Performing Organization Address City/[facility]/ZIP Co de Phone Number [facility] [address] [place] [address], [place] [phone] from Last 3 Months Insurance MEDICARE [facility] Advance Directives Documents on File Type Date Recorded Patient Jacket Preparer Expl anation Advance Directives and Living Will 01/29/2025 2:38 PM Marya Ferreira Health Care Proxy * Full Code - Default (Latest Code Status on File) Date Activated Date Inactivated Comments 01/28/2025 5:56 PM 01/29/2025 5:39 PM This is orde r is used when code status has not been discussed with the patient, or code status is otherwise unknown/unconfirmed To update the patient's code status, place a code status order. Do not modify or discontinue any currently active code status orders. * Full Code - Default Date Activated Date Inactivated Comments 01/28/2025 10:40 AM 01/28/2025 5:56 PM This is ord er is used when code status has not been discussed with the patient, or code status is otherwise unknown/unconfirmed To update the patient's code status, place a code status order. Do not modify or discontinue any currently active code status orders. * Full Code - Default Date Activated Date Inactivated Comments 10/08/2024 3:59 PM 10/11/2024 4:18 PM This is orde r is used when code status has not been discussed with the patient, or code status is otherwise unknown/unconfirmed To update the patient's code status, place a code status order. Do not modify or discontinue any currently active code status orders. Healthcare Agents on File Name Relationship Healthcare Agent Relationshi p Communication Arleen Jay First Alternate Health Care Agent Marya Ferreira Daughter Second Alternate Health Care Agent Care Teams Campaign Management Senior Manager Relationship Specialty Start Date End Date Deejay Meza MD [address] [place] [address] [address] [place], [place] PCP - General Internal Medicine 11/07/24
--- OUTSIDE RECORDS SUMMARY | 2025-02-04 11:38 | XMS_ITS | Patient Health Record ---
Author Organization [facility] Address [address] [place] [address] Care Team Providers Care Forensic Engineer Name Role Phone Brenden Rosales MD Primary Care Provider Wai Ramsey [phone] Reason For Referral No Information Medications Medication [...] W/U Status Risk Notes Problem Verruca plantaris (16014913) Verruca Plantaris (078.19) Active confirmed Problem Disorder of joint of ankle and/or foot (427206206) Arthritis - Degenerative (719.97) Active confirmed Problem Acquired deformity of joint of big toe (disorder) (574179317) Hallux Limitus (735.8) Active confirmed Problem Pain in limb (93218704) Pain in Limb (729.5) Active confirmed Plan Of Treatment Pending Test Test Name Order Date [id number] Destruction, -06/06/2013 [id number] Destruction, -08/08/2013 Insurance Providers Payer Name Payer Address Payer Phone Subscriber Number Group Number Insured Name Patient Relationship to Insured Coverage Start Date Coverage End Date [facility] [address] [place] [address] [phone] [id number] PETERSON DRUMMOND Self - patient is the insured 9 Medical (General) History Medical History History ICD Code Back,Hip,and Knee pain Cholesterol Headaches High blood pressure Chicken pox Hypothyroidism Surgical History Surgery Date(Month/Year) section 1987,[address] Dangotes/ 1 Dr Travis garcia surgery back surgery cataract surgery OD cataract surgery OS 2013
== END 2025-02-04 12:31 | disposition home or self-care (01) ==
LOC: HO.HMCH 09:44
PROVIDERS: PCP Internal Medicine; Visit Provider Internal Medicine
DX: D35.02 Benign neoplasm of left adrenal gland (principal); I10 Essential (primary) hypertension; E78.00 Pure hypercholesterolemia, unspecified; E03.9 Hypothyroidism, unspecified; R73.01 Impaired fasting glucose; G43.909 Migraine, unspecified, not intractable, without status migrainosus; G24.9 Dystonia, unspecified; M47.812 Spondylosis without myelopathy or radiculopathy, cervical region; M51.360 Other intervertebral disc degeneration, lumbar region with discogenic back pain only; E55.9 Vitamin D deficiency, unspecified; E53.8 Deficiency of other specified B group vitamins; G62.9 Polyneuropathy, unspecified; M17.11 Unilateral primary osteoarthritis, right knee; G47.00 Insomnia, unspecified; F41.9 Anxiety disorder, unspecified; F32.9 Major depressive disorder, single episode, unspecified

== ENCOUNTER 2025-02-17 13:28 | Outpatient (AMB) | payer MEDICARE, BC, SELFPAY ==
--- OUTSIDE RECORDS SUMMARY | 2025-02-10 10:15 | XMS_ITS | Encounter Summary ---
Author Organization [facility] Address [address] [place] [address] Care Team Providers Care Shuttle Route Vehicle Operator Name Role Phone Deejay Meza MD Primary Care Provider [phone] Encounter Details Date Type Department Care Team (Late st Contact Info) Description 02/10/2025 10:15 AM EDT Office Visit [facility] [address] [place] [address] Chandrakant Vides MD [address] [place] [address] Acute deep vein thrombosis (DVT) of other specified vein of both lower extremities (CMS/HCC V24, CMS/HCC V28) (Primary Dx); Bilateral pulmonary embolism (CMS/HCC V24, CMS/HCC V28); Benign pheochromocytoma, left Social History Tobacco Use Types Packs/Day Years Used Date Smoking Tobacco: Never Smokeless Tobacco: Never Tobacco Cessation:Counseling Given: Not Answered Alcohol Use Standard Drinks/Week Comments Yes 0 (1 standard drink = 0.6 oz pur e alcohol) very rare Interpersonal Safety Answer Date Record ed Physical Abuse Unrecognized value 01/28/2025 Verbal Abuse Unrecognized value 01/28/2025 Comments No Sex and Gender Information Value Date Recorded Sex Assigned at Not on file Legal Sex Female 1:12 PM EST Gender Identity Not on file Sexual Orientation Not on file documented as of this encounter Last Filed Vital Signs Vital Sign Reading Time Taken Comments Blood Pressure 122/75 02/10/2025 10:21 AM EDT Pulse 70 02/10/2025 10:21 AM EDT Temperature 36.7 C (98 F) 02/10/2025 10:21 AM EDT Respiratory Rate - - Oxygen Saturation - - Inhaled Oxygen Concentration - - Weight 66.2 kg (146 lb) 02/10/2025 10:21 AM EDT Height - - Body Mass Index 25.05 01/28/2025 10:35 AM EDT documented in this encounter Progress Notes * Chandrakant Mills-MD Luz - 02/10/2025 10:15 AM EDT CHIEF COMPLAINT Chief Complaint Patient presents with Follow-up IDENTIFIER Arleen Jay is a 64 y.o. female HPI: Patient returns for a 3-month follow-up. She was evaluated in clinic in October for concerns of DVT/PE, recurrent episodes. Imaging demonstrated adrenal nodule, 3.8 cm left adrenal. Further imaging was obtained and reviewedwith her. MRI-4.8 cm left adrenal nodule., Enlarging from 2.7 cm in 2017. Regarding adrenal mass, surgical referral after catecholamine check. Advised the patient to continue Eliquis for at least 1 year. Thrombophilia workup was obtained. Further lab work-11/08/2024-showed epinephrine 1081, norepinephrine 2244, dopamine 69, and catecholamine plasma 3394 all elevated. 11/19/2024-urine catecholamines-showed norepinephrine 128, epinephrine 131, dopamine 159, catecholamine 259, all elevated rather than dopamine. Patient underwent surgical referral, and was evaluated by Dr. Newman who arranged for surgery on 01/28/2025. She had laparoscopic left adrenalectomy on 01/29/2024 and tolerated the procedure well. Pathology reports are pending. Patient has a surgical follow-up coming up. Latest labs-demonstrated a mild anemia hemoglobin of 11.1, elevated WBC 11, normal platelets 259. Metabolic profile CMP normal except for slightly low albumin 3.1 She did have thrombophilia testing, and results were normal. Patient feels fairly well today except for the workup and preparation for surgery, and episode of severe nausea/vomiting that she had after surgery. Her weight is stable. Blood pressure has normalized. She remains active. She is awaiting a surgical follow-up. Pathology results are not yet available. 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 She was not able to go on her usual walks, and needed to rest in between. She also experienced chest pressure. A chest x-ray demonstrated no acute findings. --CT angiogram-extensive bilateral pulmonary emboli, flattening of IV septum mild right heart strain The CT also included upper abdomen, and demonstrated a 3.8 cm left adrenal mass MRI was recommended 10/09/2024-in hospital, MRI abdomen revealed 4.8 x 3.7 centimeter left adrenal nodule, with internalcysts, hematocrit levels, peripheral enhancement The nodule measured 2.7 cm in 2017 Per radiology report, size and imaging characteristics suspicious for pheochromocytoma Patient was evaluated by vascular surgeon, and treated with the EKOS thrombolysis for extensive bilateral pulmonary embolism. Patient is currently on Eliquis. She completed the starter pack. She requests a new prescription. I did review with her that usually we request the PCP office to provide the prescription She reports no bleeding Her weight has remained stable. Appetite is good Patient also brings up a family history, her father had hemochromatosis. 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 --Recent issues with hypertension, patient was noted to have blood pressure in the 170s in she went to donate platelets. Procedure was canceled, recheck in 2 weeks confirmed the high blood pressure, and she was started on antihypertensive per her PCP - Prior episode of pulmonary embolism in 2004 after she was hit with a racquetball during a game, on her right thigh, developed a DVT and then PE. At that time she was treated with Coumadin x 1 year ROS: GENERAL: No malaise, significant weight loss or fever NECK: No lumps, goiter, pain or significant neck swelling RESPIRATORY: No cough, wheezing or shortness of breath CARDIOVASCULAR: No chest pain, leg swelling or palpitations GI: No abdominal discomfort, blood in stools or black stools MUSCULOSKELETAL: No joint pain or swelling, back pain, or muscle pain. HEMATOLOGY/LYMPHOLOGY No prolonged bleeding, easy bruisability or swollen nodes Other Systems review is non contributory PAST MEDICAL HISTORY: Active Ambulatory Problems Diagnosis Date Noted Bilateral pulmonary embolism ([facility]/HCC V24, CMS/[facility] V28) 10/08/2024 Benign pheochromocytoma, left 2024 Acute deep vein thrombosis (DVT) of both lower extremities (CMS/HCC V24, CMS/HCC V28) 2024 Pheochromocytoma of left adrenal gland 12/03/2024 Resolved Ambulatory Problems Diagnosis Date Noted No Resolved Ambulatory Problems Past Medical History: Diagnosis Date Adrenal mass (CMS/HCC V24) Delayed emergence from general anesthesia Dystonia HTN (hypertension) Hyperlipidemia Hypothyroidism Migraines PONV (postoperative nausea and vomiting) Pulmonary emboli (CMS/HCC V24, CMS/[facility] V28) PAST SURGICAL HISTORY: Past Surgical History: Procedure Laterality Date BACK SURGERY lumbar SECTION, CLASSIC x2 TOTAL KNEE ARTHROPLASTY Bilateral SOCIAL HISTORY: Social History Tobacco Use Smoking status: Never Smokeless tobacco: Never Substance Use Topics Alcohol use: Yes Comment: very rare FAMILY HISTORY: No family history on file. MEDICATIONS: Current Outpatient Medications: apixaban (ELIQUIS) 5 mg tablet, Take 1 tablet (5 mg total) by mouth 2 (two) times a day., Disp: 60 tablet, Rfl: 0 cyanocobalamin (VITAMIN B-12) 1,000 mcg tablet, Take 1 tablet (1,000 mcg total) by mouth 1 (one) time each day., Disp: , Rfl: doxazosin (CARDURA) 1 mg tablet, Take 1 tablet (1 mg total) by mouth at bedtime., Disp: , Rfl: gabapentin (NEURONTIN) 600 mg tablet, Take 1 tablet (600 mg total) by mouth at bedtime., Disp: , Rfl: levothyroxine (SYNTHROID, LEVOTHROID) 100 mcg tablet, Take 1 tablet (100 mcg total) by mouth 1 (one) time each day before breakfast., Disp: , Rfl: oxyCODONE (ROXICODONE) 5 mg immediate release tablet, Take 1 tablet (5 mg total) by mouth every 6 (six) hours if needed for severe pain. Max Daily Amount: 20 mg, Disp: 12 tablet, Rfl: 0 pravastatin (PRAVACHOL) 40 mg tablet, Take 1 tablet (40 mg total) by mouth at bedtime., Disp: , Rfl: topiramate (TOPAMAX) 25 mg tablet, Take 1 tablet (25 mg total) by mouth at bedtime., Disp: , Rfl: No Known Allergies PHYSICAL EXAM: Visit Vitals BP 122/75 (BP Location: Right arm, Patient Position: Sitting, BP Cuff Size: Small adult) Pulse 70 Temp 36.7 ??C (98 ??F) (Temporal) Wt 66.2 kg (146 lb) BMI 25.05 kg/m?? OB Status Postmenopausal Smoking Status Never BSA 1.71 m?? APPEARANCE: Alert and in no acute distress Anxious, looks well normal gait EYES: PERRL, conjunctiva pink and sclera are Normal without icterus ORAL CAVITY: No erythema or exudates NECK: Neck supple, no adenopathy, HEART: RRR with normal S1 and S2, no murmurs, no gallops, no JVD appreciated LUNG: clear to auscultation bilaterally Percussion note normal LYMPH NODES: No palpable superficial adenopathy ABDOMEN: Bowel sounds normoactive, no bruits, soft, non-tender, without organomegaly or palpable masses EXTREMITIES: Extremities warm and well perfused without clubbing, cyanosis, rash or edema NEURO: Oriented X 3, no focal weakness; sensation is normal LABS: Lab Results Component Value Date WBC 11.0 (H) 01/29/2025 HGB 11.1 (L) 01/29/2025 HCT 34.8 (L) 01/29/2025 MCV 87.4 01/29/2025 PLT 259 01/29/2025 Lab Results Component Value Date NA 137 01/29/2025 K 3.6 01/29/2025 CO2 23 01/29/2025 CL 107 01/29/2025 BUN 11 01/29/2025 Testing: Review of Lab results , interpreted Lab Results Component Value Date WBC 11.0 (H) 01/29/2025 HGB 11.1 (L) 01/29/2025 HCT 34.8 (L) 01/29/2025 MCV 87.4 01/29/2025 PLT 259 01/29/2025 Lab Results Component Value Date NA 137 01/29/2025 K 3.6 01/29/2025 CL 107 01/29/2025 CO2 23 01/29/2025 GLUCOSE 78 01/29/2025 BUN 11 01/29/2025 CREATININE 0.44 (L) 01/29/2025 CALCIUM 8.6 01/29/2025 PROT 5.8 (L) 01/29/2025 ALBUMIN 3.1 (L) 01/29/2025 BILITOT 0.5 01/29/2025 AST 14 01/29/2025 ALT 17 01/29/2025 PHOS 4.0 10/11/2024 MG 2.0 10/11/2024 ALKPHOS 62 01/29/2025 EGFR 107 01/29/2025 Review of Imaging, interpreted Cardiac cath procedure Per op note Review of External Documentation -- Notes from hospitalization Tests ordered - No orders of the defined types were placed in this encounter. ASSESSMENT 1. Acute deep vein thrombosis (DVT) of other specified vein of both lower extremities (CMS/HCC V24,CMS/HCC V28) 2. Bilateral pulmonary embolism (CMS/HCC V24, CMS/HCC V28) 3. Benign pheochromocytoma, left PLAN: 64-year-old lady with excellent functional status ECOG 0 #1 recurrent episodes of pulmonary embolism, DVT -Previous one in 2004, likely provoked after injury during [employer] game - Current episode, possibly provoked related to adrenal lesion -Recommend to continue Eliquis for at least 1 year, and thereafter will review her clinical situation Eliquis 5 mg twice daily prescription sent in for 1 month. Patient request --For future prescriptions recommend that she obtain it from PCP office because we will not be monitoring her closely --Workup for thrombophilia, I will include lab work for lupus anticoagulant, do anticardiolipin antibody and beta-2 glycoprotein antibody-all of these are negative, reassured --Recommend that she may complete Eliquis by 1 year will be in the end of September 2025, however patientis worried about risk of recurrence, therefore may continue at a lower dose after 1 year #2 adrenal mass question of pheochromocytoma Per radiology review --Recommend lab work including catecholamines, and 24-hour catecholamines, medications reviewed okay to proceed with testing-results reviewed, significant elevation, she has completed surgery left adrenalectomy, will recheck labs after 3 months We also obtain a restaging MRI in the next few months --Possibility of the venous thrombosis/PE being related to pheochromocytoma was discussed with the patient. If surgically removed, she may be able to come off the anticoagulation after a year Patient held Eliquis appropriately and did well after surgery without any significant bleeding #3 acute DVT, symptoms improved significantly, on Eliquis 5 mg twice daily Patient also had a bilateral PE and right heart strain --Eliquis 5 mg twice daily, to continue at least a year Prescriptions to be obtained from PCP office #4 history of hemochromatosis, hereditary, and patient's father, and among her siblings she is only1 to inherit the gene per report Iron/ferritin studies in the normal range, therefore reassured, no need for genetic testing Clinic follow-up in September, and sooner if new issues arise Pain control-no issues Healthcare proxy-her daughter Chandrakant Vides MD Cc: No ref. provider found Cc Deejay Meza MD Cc Krista Newman * Chandrakant Vides MD - 02/10/2025 10:15 AM EDT Pathology report reviewed, tumor was benign, as expected, pheochromocytoma, clear margins, no need for any chemotherapy please let the patient know We will recheck the labs again after a few months +++ Result Notes Component Ref Range & Units (hover) Final Diagnosis Left adrenal gland, adrenalectomy: Pheochromocytoma - Invasion through the capsule into the periadrenal adipose tissue present - Margins uninvolved at 1538 EDT Comment All pheochromocytomas and paragangliomas are now considered malignant. Approximately 40% are considered hereditary. PASS (pheochromocytoma of the adrenal gland scaled score) has been used to predict malignant behavior with a score of 4 or more concerning for malignant behavior. This patient's tumorhas periadrenal adipose invasion, diffuse growth, high cellularity, marked nuclear pleomorphism, capsular invasion, and hyperchromasia for a score of 9. Synoptic Checklist Paraganglioma and Pheochromocytoma AJCC 8 - Protocol posted: 07/31/2024PARAGANGLIOMA AND PHEOCHROMOCYTOMA - All Specimens CLINICAL Functional Status Biochemically functioning Metanephrine and / or adrenaline Normetanephrine and / or noradrenaline 3-Methoxytyramine and / or dopamine SPECIMEN Procedure Left adrenalectomy Specimen Integrity Intact TUMOR Tumor Number Unifocal Tumor Location Intra-adrenal Tumor Size Greatest Dimension (Centimeters): 3.1 cm documented in this encounter Plan of Treatment Upcoming Encounters Date Type Department Care Team (Late st Contact Info) Description 09/15/2025 11:00 AM EDT Office Visit [facility] [address] [place] [phone] Chandrakant Vides MD [address] [place] [id number] documented as of this encounter Visit Diagnoses Diagnosis Acute deep vein thrombosis (DVT) of other specified vein of both lower extremities (CMS/HCC V24, CMS/HCC V28)- Primary Bilateral pulmonary embolism (CMS/HCC V24, CMS/HCC V28) Other pulmonary embolism and infarction Benign pheochromocytoma, left documented in this encounter Discontinued Medications Medication Sig Discontinue Reason Start Date End Da te acetaminophen (TYLENOL) 500 mg tablet Take 2 tablets (1,000 mg total) by mouth every 8 (eight) hours for 10 days. 01/29/2025 02/10/2025 docusate sodium (COLACE) 100 mg capsule Take 1 capsule (100 mg total) by mouth 2 (two) times a day for 7 days. 01/29/2025 02/10/2025 documented as of this encounter Care Teams Shuttle Route Vehicle Operator Relationship Specialty Start Date End Date Deejay Meza MD [address] [place] [address] [address] [place] PCP - General Internal Medicine 11/07/24 documented as of this encounter
--- OUTSIDE RECORDS SUMMARY | 2025-02-17 15:49 | XMS_ITS | Patient Health Record ---
[facility] Address [address] [place] [address] Care Team Providers Care Dog Breeder Name Role Phone Brenden Rosales MD Primary Care Provider Wai Sainz Unavailable [phone] Reason For Referral No Information Medications Medication [...] W/U Status Risk Notes Problem Verruca plantaris ([id number]) Verruca Plantaris (078.19) Active confirmed Problem Disorder of joint of ankle and/or foot (346330475) Arthritis - Degenerative (719.97) Active confirmed Problem Acquired deformity of joint of big toe (disorder) (539695715) Hallux Limitus (735.8) Active confirmed Problem Pain in limb (96401255) Pain in Limb (729.5) Active confirmed Plan Of Treatment Pending Test Test Name Order Date [id number] Destruction, -06/06/2013 [id number] Destruction, 05-2808/08/2013 Insurance Providers Payer Name Payer Address Payer Phone Subscriber Number Group Number Insured Name Patient Relationship to Insured Coverage Start Date Coverage End Date [facility] [address] [place] [address] [id number] PETERSON DRUMMOND Self - patient is the insured 9 Medical (General) History Medical History History ICD Code Back,Hip,and Knee pain Cholesterol Headaches High blood pressure Chicken pox Hypothyroidism Surgical History Surgery Date(Month/Year) section 1987,[address] Dangotes/ 1 Dr Travis garcia surgery back surgery cataract surgery OD cataract surgery OS 2013
--- OUTSIDE RECORDS SUMMARY | 2025-02-17 15:49 | XMS_ITS | Clinical Summary ---
Author Organization [facility] Address [address] [place] [address] Phone Care Team Providers Care In Service Education Teacher Name Role Phone Deejay Meza MD Primary Care Provider Allergies Active Allergy Reactions Criticality Noted Date Comments Amoxicillin 01/09/2025 Other Reaction(s): Other: Ill Medications gabapentin (NEURONTIN) 600 mg tablet Take [...] by mouth at bedtime. 01/20/20 25 Active oxyCODONE (ROXICODONE) 5 mg immediate release tabletIndications :Postoperative pain,Benign pheochromocytoma, left,H/O partial adrenalectomy ([facility] V24) Take 1 tablet (5 mg total) by mouth every 6 (six) hours if needed for severe pain. Max Daily Amount: 20 mg 12 tablet 01/30/20 Active lisinopriL (PRINIVIL,ZESTRIL ) 5 mg tablet Take 1 tablet (5 mg total) by mouth. 06/28/19 19 Active acetaminophen (TYLENOL) 500 mg tablet Take 2 tablets (1,000 mg total) by mouth every 8 (eight) hours for 10 days. 30 tablet 01/30/20 25 025 Discontinued docusate sodium (COLACE) 100 mg capsule Take 1 capsule (100 mg total) by mouth 2 (two) times a day for 7 days. 14 each 01/30/20 25 025 Discontinued Active Problems Problem Noted Date Diagnosed Date Pheochromocytoma of left adrenal gland Benign pheochromocytoma, left 2024 Acute deep vein thrombosis ( DVT) of both lower extremities (CMS/HCC V24, CMS/HCC V28) 2024 Bilateral pulmonary embolism (CMS/HCC V24, CMS/H CC V28) 10/08/2024 Encounters Date Type Department Care Team Description 02/11/2025 9:45 AM EDT Office Visit General Surgery - [place] [address] [place] [phone] Krista Newman MD Pheochromocytoma of left adrenal gland (Primary Dx) 02/10/2025 10:15 AM EDT Office Visit [facility] Hematology Oncology [address] [place] [phone] Chandrakant Odell MD Acute deep vein thrombosis (DVT) of other specified vein of both lower extremities (CMS/HCC V24, CMS/HCC V28) (Primary Dx); Bilateral pulmonary embolism (CMS/HCC V24, CMS/HCC V28); Benign pheochromocytoma, left 01/28/2025 12:42 PM EDT Anesthesia Event [facility] Main OR [address] [place] [phone] Lamine Cole MD Hard, Shannon, CRNA 01/28/2025 12:00 PM EDT - 01/28/2025 2:30 PM EDT Surgery [facility] Main OR [address] [place] [address] Krista Newman MD LAPAROSCOPIC LEFT ADRENALECTOMY [77820 (CPT )] 01/28/2025 10:19 AM EDT - 01/29/2025 3:34 PM EDT Hospital Encounter [facility] Intermediate Care Unit [address] [place] [address] Krista Newman MD Kokosadze, Estate, MD Postoperative pain (Primary Dx); Pheochromocytoma of left adrenal gland; Benign pheochromocytoma, left; H/O partial adrenalectomy ([facility] V24) Discharge Disposition: Home or Self Care 01/17/[address] [address] Krista Newman MD 12/11/[address] [address] Krista Newman MD 12/10/2024 Telephone General [address] [phone] Sara Deutsch [place] 12/03/2024 10:15 AM EDT Office Visit General [address] [address] Krista Newman MD Pheochromocytoma of left adrenal gland (Primary Dx) 11/27/[address] [address] Krista Newman MD 11/18/[address] [address] Krista Newman MD from Last 3 Months Surgical History Surgery Date Site/Laterality Comments TOTAL KNEE ARTHROPLASTY Bilateral SECTION, CLASSIC x2 BACK SURGERY lumbar Medical History Medical History Date Comments HTN (hypertension) Hypothyroidism Hyperlipidemia Dystonia rest Migraines PONV (postoperative nausea and vomiting) Delayed emergence from general anesthesia Pulmonary emboli ([facility] V24, [facility] V28) september 2024 Adrenal mass ([facility] V24) Social History Tobacco Use Types Packs/Day [...] Sign Reading Time Taken Comments Blood Pressure 108/76 02/11/2025 9:49 AM EDT Pulse 69 02/11/2025 9:49 AM EDT Temperature 36.7 C (98 F) 02/10/2025 10:21 AM EDT Respiratory Rate 15 01/29/2025 11:15 AM EDT Oxygen Saturation 97% 01/29/2025 11:15 AM EDT Inhaled Oxygen Concentration - - Weight 66.8 kg (147 lb 3.2 oz) 02/11/2025 9:49 A M EDT Height 162.6 cm (5' 4.01 ) 02/11/2025 9:49 AM ED T Body Mass Index 25.26 02/11/2025 9:49 AM EDT Plan of Treatment Upcoming Encounters Date Type Department Care Team (Late st Contact Info) Description 09/15/2025 11:00 AM EDT Office Visit [facility] Hematology Oncology [address] [place] [address] Chandrakant Vides MD [address] [place] [address] Health Maintenance Due Date Last Done Comments Breast Cancer Screening 1960 Colorectal Cancer Screening: Colonoscopy 1960 Pneumococcal Vaccine: 50+ Years (1 of 1 - PCV) 2008 RSV Immunization Adult Patients (1 - Risk 60-74 years 1-dose series) 2018 Depression Screening 05/15/2024 Cholesterol Screening (Lipid Panel) 10/08/2024 Hepatitis C Screening 10/08/2024 Medicare Annual Wellness Visit 10/08/2024 Osteoporosis Screening (Bone Density Screening) 10/08/2024 Social Influencers of Health Screening 10/08/2024 COVID-19 Vaccine ( season) 2025 03/26/2024, 03/07/2023, 03/22/2022, Additional history exists Falls Risk Assessment 01/29/2026 01/29/2025 DTaP,Tdap,and Td Vaccines (2 - Td or Tdap) 10/06/2026 10/06/2016 Zoster Vaccines Completed 04/22/2020, 02/08/2020 Influenza Vaccine Completed 01/06/2025, , 03/07/2023, Additional history exists HIB Vaccines Aged Out No longer eligi [...] this topic Medical Devices Implanted Type Area School Psychological Examiner Device Identifier Shelf Expiration Date Model / [...] THERAPY, ADULT Routine 01/28/2025 3:18 PM EDT TISSUE EXAM Routine 01/28/2025 2:36 PM EDT Pheochromocytoma of left adrenal gland TH AN ENDOTRACHEAL(NO CHARGE) Routine 01/28/2025 1:20 PM EDT TH AN ARTERIAL LINE (CHARGE) Routine 01/28/2025 1:15 PM EDT IN LAP SURG W ADRENALECTOMY/EXP ADRENAL GLAND TRANSABDOMINAL/LUMB [...] METABOLIC PANEL Routine 01/28/2025 11:04 AM EDT from Last 3 Months Results * (ABNORMAL) CBC auto differential (01/29/2025 6:06 AM EDT) Only the most recent of2 resultswithin the time period is included. WBC 11.0(H) 4.8 - 10.8 K/mcL LAB HEMETOLOGY METHOD 01/29/2025 6:49 AM EDT [facility] RBC 4.00 3.80 - 4.80 M/mcL LAB HEMETOLOGY METHOD 01/29/2025 6:49 AM EDT [facility] Hemoglobin 11.1(L) 11.5 - 16.0 g/dL LAB HEMETOLOGY METHOD 01/29/2025 6:49 AM EDT [facility] Hematocrit 34.8(L) 35.0 - 47.0 % [facility] MCV 87.4 79.0 - 98.0 FL LAB HEMETOLOGY METHOD 01/29/2025 6:49 AM [facility] MCH 27.9 27.0 - 32.0 pcg LAB HEMETOLOGY METHOD 01/29/2025 6:49 AM [facility] MCHC 31.9(L) 32.0 - 37.0 g/dL LAB HEMETOLOGY METHOD 01/29/2025 6:49 AM [facility] RDW 14.1 11.0 - 15.0 % LAB HEMETOLOGY METHOD 01/29/2025 6:49 AM [facility] Platelets 259 130 - 400 K/mcL LAB HEMETOLOGY METHOD 01/29/2025 6:49 AM [facility] MPV 10.4 7.0 - 11.0 FL LAB HEMETOLOGY METHOD 01/29/2025 6:49 AM [facility] NRBC 0.0 <1.0 % LAB HEMETOLOGY METHOD 01/29/2025 6:49 AM [facility] NRBC Absolute 0.00 <0.10 K/mcL LAB HEMETOLOGY METHOD 01/29/2025 6:49 AM [facility] Neutrophils Relative 83.9 % LAB HEMETOLOGY METHOD 01/29/2025 6:49 AM [facility] Lymphocytes Relative 9.5 % LAB HEMETOLOGY METHOD 01/29/2025 6:49 AM [facility] Monocytes Relative 5.7 % LAB HEMETOLOGY METHOD 01/29/2025 6:49 AM [facility] Eosinophils Relative 0.1 % LAB HEMETOLOGY METHOD 01/29/2025 6:49 AM EDT [facility] Basophils Relative 0.4 % LAB HEMETOLOGY METHOD 01/29/2025 6:49 AM EDT [facility] Immature Granulocytes Relative 0.4 % LAB HEMETOLOGY METHOD 01/29/2025 6:49 AM EDT [facility] Neutrophils Absolute 9.21(H) 1.50 - 7.00 K/mcL LAB HEMETOLOGY METHOD 01/29/2025 6:49 AM EDT [facility] Lymphocytes Absolute 1.04 1.00 - 5.00 K/mcL LAB HEMETOLOGY METHOD 01/29/2025 6:49 AM EDT [facility] Monocytes Absolute 0.63 0.20 - 1.00 K/mcL LAB HEMETOLOGY METHOD 01/29/2025 6:49 AM EDT [facility] Eosinophils Absolute 0.01 0.00 - 0.50 K/mcL LAB HEMETOLOGY METHOD 01/29/2025 6:49 AM EDT [facility] Basophils Absolute 0.04 0.00 - 0.20 K/mcL LAB HEMETOLOGY METHOD 01/29/2025 6:49 AM EDT [facility] Immature Granulocytes Absolute 0.04(H) 0.00 - 0.03 K/mcL LAB HEMETOLOGY [facility] Blood Venous blood specimen / Unknown Venipuncture / Unknown 01/29/2025 6:06 AM EDT 01/29/2025 6:13 AM EDT us Stacey CROW LAB BLOOD ORDERABLES Final Re sult [facility] [address] [place] [address], * (ABNORMAL) Comprehensive metabolic panel (01/29/2025 6:06 AM EDT) Only the most recent of2 resultswithin the time period is included. Sodium 137 133 - 145 mmol/L LAB CHEMISTRY METHOD 01/29/2025 7:07 AM [facility] Potassium 3.6 3.5 - 5.5 mmol/L LAB CHEMISTRY METHOD 01/29/2025 7:07 AM [facility] Chloride 107 96 - 110 mmol/L LAB CHEMISTRY METHOD 01/29/2025 7:07 AM [facility] CO2 23 21 - 32 mmol/L LAB CHEMISTRY METHOD 01/29/2025 7:07 AM [facility] Anion Gap 7 3 - 11 LAB CHEMISTRY METHOD 01/29/2025 7:07 AM [facility] Glucose 78 70 - 100 mg/dL LAB CHEMISTRY METHOD 01/29/2025 7:07 AM [facility] BUN 11 5 - 25 mg/dL LAB CHEMISTRY METHOD 01/29/2025 7:07 AM [facility] Creatinine 0.44(L) 0.50 - 1.10 mg/dL LAB CHEMISTRY METHOD 01/29/2025 7:07 AM [facility] eGFR 107 >=60 mL/min/1. 73m2 LAB CHEMISTRY METHOD 01/29/2025 7:07 AM [facility] Comment:Calculation based on the Chronic Kidney Disease Epidemiology Collaboration (CKD-EPI) equation refit without adjustment for race. BUN/Creatinine Ratio 25.0 LAB CHEMISTRY METHOD 01/29/2025 7:07 AM [facility] Calcium 8.6 8.5 - 10.5 mg/dL LAB CHEMISTRY METHOD 01/29/2025 7:07 AM [facility] AST (SGOT) 14 10 - 42 unit/L LAB CHEMISTRY METHOD 01/29/2025 7:07 AM [facility] ALT (SGPT) 17 10 - 60 unit/L LAB CHEMISTRY METHOD 01/29/2025 7:07 AM EDT [facility] Alkaline Phosphatase 62 42 - 121 unit/L LAB CHEMISTRY METHOD 01/29/2025 7:07 AM EDT [facility] Total Protein 5.8(L) 6.0 - 8.0 g/dL LAB CHEMISTRY METHOD 01/29/2025 7:07 AM T [facility] Albumin 3.1(L) 3.2 - 5.0 g/dL LAB CHEMISTRY METHOD 01/29/2025 7:07 AM EDT [facility] Total Bilirubin 0.5 0.0 - 1.4 mg/dL LAB CHEMISTRY METHOD 01/29/2025 7:07 AM T [facility] Blood Venous blood specimen / Unknown Venipuncture / Unknown 01/29/2025 6:06 AM EDT 01/29/2025 6:13 AM EDT Krista Newman MD LAB BLOOD ORDERABLES Fi nal Result [facility] [address] [place] [address], * Tissue exam (01/28/2025 2:36 PM EDT) Final Diagnosis Left adrenal gland, adrenalectomy: Pheochromocytoma - Invasion through the capsule into the periadrenal adipose tissue present - Margins uninvolved 3:38 PM EDT [facility] at 1538 EDT Comment All pheochromocytoma s and paragangliomas are now considered malignant. Approximately 40% are considered hereditary. PASS (pheochromocytoma of the adrenal gland scaled score) has been used to predict malignant behavior with a score of 4 or more concerning for malignant behavior. This patient's tumor has periadrenal adipose invasion, diffuse growth, high cellularity, marked nuclear pleomorphism, capsular invasion, and hyperchromasia for a score of 9. 3:38 PM EDT [facility] Synoptic Checklist Paraganglioma and Pheochromocytoma PARAGANGLIOMA AND PHEOCHROMOCYTOMA - All Specimens AJCC 8 - Protocol posted: 07/31/2024 CLINICAL Functional Status: Biochemically functioning : Metanephrine and / or adrenaline : Normetanephrine and / or noradrenaline : 3-Methoxytyramine and / or dopamine SPECIMEN Procedure: Left adrenalectomy Specimen Integrity: Intact TUMOR Tumor Number: Unifocal Tumor Location: Intra-adrenal Tumor Size: Greatest Dimension (Centimeters): 3.1 cm Histologic Type(s): Pheochromocytoma (adrenal paraganglioma) Tumor Necrosis: Not identified Angioinvasion (vascular invasion): Not identified Lymphatic Invasion: Not identified Tumor Extent: Saumya-adrenal or saumya-tumoral soft tissue invasion Tumor Proliferative Activity: Ki-67 Labeling Index: 5.7 % Ki-67 Methodology: Manual count Mitotic Count: 1 mitoses per 2 mm2 MARGINS Margin Status: All margins negative for tumor REGIONAL LYMPH NODES Regional Lymph Node Status: Not applicable (no regional lymph nodes submitted or found) pTNM CLASSIFICATION (AJCC 8th Edition) Reporting of pT, pN, and (when applicable) pM categories is based on information available to the pathologist at the time the report is issued. As per the AJCC (Chapter 1, 8th Ed.) it is the managing physician's responsibility to establish the final pathologic stage based upon all pertinent information, including but potentially not limited to this pathology report. pT Category: pT3 pN Category: pN not assigned (no nodes submitted or found) ADDITIONAL FINDINGS Adrenal Medullary Hyperplasia: Absent SPECIAL STUDIES Keratins: Negative 5 3:38 PM EDT [facility] Gross Description A. Gland, Adrenal Left, : Labeled left adre, adrenal L . Received in formalin is a 44 g, 7.5 x 4.9 x 3.0 cm adrenal gland that is surface by saumya-adrenal adipose tissue. The external surface is inked black. Sectioning reveals a 3.1 x 2.8 x 2.8 cm well-circumscribed, hemorrhagic, yellow-pink lesion. The lesion grossly appears to be replacing the adrenal parenchyma with only scant yellow streaks noted in the capsule. No definitef extracapsular invasion into the saumya-adrenal adipose tissue is identified. The lesion is less than 0.1 cm to the closest radial margin. Lymph nodes are absent. A digital photograph is taken. Projection Engineer sections are submitted in seven cassettes, one piece each. Additional sections are submitted in cassettes eight through fourteen, two pieces each. KR 3:38 PM EDT [facility] Special Stains To confirm the diagnosis of pheochromocytoma, immunohistochemical staining was performed with appropriate controls. INSM1: Diffusely expressed, confirming neuroendocrine origin Cytokeratin JO: No expression, excluding neuroendocrine carcinoma Melan A: No expression, excluding adrenal cortical neoplasm 3:38 PM EDT [facility] Disclaimer NOTE: The immunohistochemical tests and in situ hybridization tests were developed and their performance characteristics were determined by [facility]. They have not been cleared or approved by the U.S. Food and Drug Administration. The FDA has determined that such clearance or approval is not necessary. These tests are used for clinical purposes. They should not be regarded as investigational or for research. This laboratory is certified under the Clinical Laboratory Improvement Amendments of 1988 (CLIA) as qualified to perform high complexity clinical laboratory testing. (controls appropriate) Unless otherwise specified, all tissue is 10% NB formalin fixed and paraffin embedded. 3:38 PM EDT [facility] Tissue Structure of left adrenal gland / Unknown 01/28/2025 2:36 PM EDT 01/28/2025 4:03 PM EDT us Krista Newman MD LAB PATHOLOGY ORDERABLE S Final Result [facility] [address] [place] [address], * TH AN ENDOTRACHEAL(NO CHARGE) (01/28/2025 1:20 PM EDT) Stacey Aguayo CRNA - 01/28/2025 1:20 PM EDT Stacey Jose CRNA 01/28/2025 1:21 PM General Information and Staff Patient location during procedure: OR Anesthesiologist: Bossman Mckenzie MD Resident/PIPE FITTER HELPER: Stacey Jose CRNA Performed: resident/PIPE FITTER HELPER/CAA Performed by: Stacey Jose CRNA Authorized by: [...] 01/28/2025 1:20 PMStop Time: 01/28/2025 1:20 PM us Bossman Mckenzie MD ANESTHESIA ORDERABLES Final [...] to verify the correct patient, procedure, equipment, contracting support specialist and site/side marked as required. [...] ABO Group A 01/28/2025 12:12 PM EDT [facility] Rh Type Negative 01/28/2025 12:12 PM EDT [facility] Antibody Screen Negative 01/28/2025 12:12 PM EDT [facility] Blood Venous blood specimen / Unknown Venipuncture / Unknown 01/28/2025 11:04 AM EDT 01/28/2025 11:13 AM EDT us Krista Newman MD LAB BLOOD BANK TEST ORD ERABLES Final Result [facility] [address] [place] [address], from Last 3 Months Insurance MEDICARE [facility] Advance Directives Documents on File Type Date Recorded Patient Projection Engineer Expl anation Advance Directives and Living Will [...] Name Relationship Healthcare Agent Relationshi p Communication Peterson Jay First Alternate Health Care Agent Marya Ferreira Daughter Second Alternate Health Care Agent Care Teams In Service Education Teacher Relationship Specialty Start Date End Date Deejay Meza MD [address] [place] [address] [address] [place], [place] PCP - General Internal Medicine 11/07/24
== END 2025-02-17 13:29 | disposition home or self-care (01) ==
LOC: HO.HMGAL 13:28
PROVIDERS: PCP Internal Medicine; Visit Provider Registered Nurse Emergency
DX: J30.89 Other allergic rhinitis (principal)
CPT/HCPCS: 95117; 95165

== ENCOUNTER 2025-03-13 12:02 | Outpatient (AMB) | payer MEDICARE, BC, SELFPAY ==
--- NOTE | 2025-03-13 12:25 | AM.OFFWIN_ITS ---
Intake Vital Signs 03/13/25 12:26 Height 5 ft 4 in Weight 145 lb BMI 24.9 BP 130/90 H Blood Pressure Location Lt brachial Position Sitting Pulse 64 Pulse Source Pulse Oximeter Temp 98.1 F Temp Source Oral Pulse Oximetry (%) 99 Oxygen Delivery Method Room Air Intake Visit Reasons: EP-?strep throat Intake Note: Patient presents with c/o sore throat x2 days Patient Tobacco Use Status: Never used Tobacco Allergies amoxicillin Allergy (Verified 03/13/25 13:03) Nausea and Vomiting Do you need a note to return to daycare/school/sports/work: No HPI HPI Comments History of Present Illness Details History - The patient is a 64-year-old female pr esenting with a sore throat and difficulty swallowing. - Symptoms began on Monday, worsening b y Monday night, with a mild fever and difficulty swallowing. - No cough or nasal congestion, but post nasal drip is present due to allergies. - History of allergy shots, no oral nicky rgy medications, and no recent illness in the household. - She has no sick contacts and lives ting md. - She is not a smoker. - She denies CP, SOB, abd pain, n/v/d, d izziness, or ear pain. Physical Exam General: Cooperative, healthy appearing, comfortable and no acute distress Orientation/consciousness: Patient oriented x3 Limitations: No limitations Head: Normal to inspection Ears: Hearing grossly normal bilaterally, external ears normal and TM's normal bilaterally Nose: Normal external nose present, normal nares present, and no nasal discharge present. Face and sinus: Sinuses nontender to palpation. Mouth: Normal oral and palatal mucosa present and moist mucous membranes noted. Throat: Tonsils normal. Uvula is midline. Posterior oropharynx with erythema and no exudates. Eyes: Appearance normal, both eyes and all related structures. No pain in the eyes. Neck: Normal visual inspection, full ROM. Lymphadenopathy noted. Respiratory: Clear to auscultation bilaterally. Normal respiratory effort, able to speak in complete sentences. No respiratory distress, not tachypneic, no tripod positioning and no use of accessory muscles. Cardiovascular: Regular rate and rhythm. Normal S1 and S2 Skin: No rashes or lesions noted Patient was informed and verbally consented to the use of an ambient scribe for clinic note documentation during this visit [facility] Medical History (Updated 02/10/25 @ 04:56 by Deejay Meza MD) Pulmonary embolism Vitamin B12 deficiency Arthritis Hypothyroidism PONV (postoperative nausea and vomiting) Celiac disease Overweight (BMI 25.0-29.9) Reactive depression Anxiety Primary osteoarthritis of right knee Insomnia Migraine Dystonia Lumbar degenerative disc disease Impaired fasting glucose Cervical spondylosis Vitamin D deficiency Acquired hypothyroidism Pure hypercholesterolemia Benign essential hypertension Surgical History (Updated 02/10/25 @ 04:58 by Deejay Meza MD) History of total adrenalectomy History of arthroplasty of right knee (~10/24/20) H/O esophagogastroduodenoscopy H/O colonoscopy History of hand surgery History of lumbar surgery History of arthroplasty of left knee Family History Father Cancer Mother CRD (chronic renal disease) CVD (cardiovascular disease) Myocardial infarction Sister Sarcoma Sister Melanoma Social History Housing: Apartment Alcohol intake: current Alcohol intake frequency: does not drink Patient Tobacco Use Status: Never used Tobacco e-Cigarette/Vaping Use: Never Used Second Hand Smoke Exposure: Yes service: No Current occupational status: employed and retired Current occupational exposures/hazards: No Cognitive needs: No Hearing needs: No Vision needs: No Review of Systems Const All systems reviewed & are unremarkable except as noted in HPI and below Physical Exam Vital Signs: Last Vital Signs Temp 98.1 F 03/13/25 12:26 Pulse 64 03/13/25 12:26 BP 130/90 H 03/13/25 12:26 Pulse Ox 99 03/13/25 12:26 Oxygen Delivery Method Room Air 03/13/25 12:26 BMI result Body Mass Index 24.9 Assessment & Plan Assessment & Plan (1) Sore throat: Code(s): J02.9 - Acute pharyngitis, unspecified Plan Most likely Pharyngitis vs covid vs RSV vs flu vs URI vs post nasal drip rapid is negative plan - Initiate antibiotic therapy due to significant symptoms and lymphadenopathy. Centor criteria is 2. - She has n/v when she takes amoxicillin, will prescribed a 3rd generation cephalosporin. - Await results of viral swab for COVID-19, RSV, and influenza to adjust treatment if necessary. - Continue allergy shots as per current regimen. - Consider adding oral antihistamines if symptoms persist. - tylenol or motrin as needed for pain or fever. - follow up with PCP Orders: Orders SARS-CoV2/FLU/RSV Today R09.89 - Other specified symptoms and signs involving the circulatory and respiratory systems AMB Rapid Strep Screen Today Z13.9 - Encounter for screening, unspecified Medications: New cefpodoxime must administer with a meal/food 200 mg PO Q12H 14 tabs 0RF 7 days Coding Level of Care Code Est Pt Level 3 (01227) Diagnoses Sore throat J02.9
[2025-03-13 12:26] VITALS: BP 130/90; PULSE 64; TEMP 36.7; O2SAT 99; BMI 24.9
--- OUTSIDE RECORDS SUMMARY | 2025-03-13 14:58 | XMS_ITS | Patient Health Record ---
[facility] Address [address] [place] [address] Care Team Providers Care Mold Yard Crane Operator Name Role Phone Brenden Rosales MD Primary Care Provider Wai Sainz Unavailable [phone] Reason For Referral No Information Medications Medication [...] W/U Status Risk Notes Problem Verruca plantaris (87768250) Verruca Plantaris (078.19) Active confirmed Problem Disorder of joint of ankle and/or foot (622541137) Arthritis - Degenerative (719.97) Active confirmed Problem Acquired deformity of joint of big toe (disorder) (079425108) Hallux Limitus (735.8) Active confirmed Problem Pain in limb (75456891) Pain in Limb (729.5) Active confirmed Plan Of Treatment Pending Test Test Name Order Date [id number] Destruction, -06/06/2013 [id number] Destruction, 05-2808/08/2013 Insurance Providers Payer Name Payer Address Payer Phone Subscriber Number Group Number Insured Name Patient Relationship to Insured Coverage Start Date Coverage End Date [facility] [address] [place] [address] [id number] PETERSON DRUMMOND Self - patient is the insured 9 Medical (General) History Medical History History ICD Code Back,Hip,and Knee pain Cholesterol Headaches High blood pressure Chicken pox Hypothyroidism Surgical History Surgery Date(Month/Year) section 1987,[address] Dangotes/ 1 Dr Travis garcia surgery back surgery cataract surgery OD cataract surgery OS 2013
--- OUTSIDE RECORDS SUMMARY | 2025-03-13 14:58 | XMS_ITS | Clinical Summary ---
Author Organization [facility] Address [address] [place] [address] Phone Care Team Providers Care Major Assembler Name Role Phone Deejay Meza MD Primary [...] 2 (two) times a day. 60 tablet 5 Active doxazosin (CARDURA) 1 mg tablet Take 1 tablet (1 mg total) by mouth at bedtime. 5 Active oxyCODONE (ROXICODONE) 5 mg immediate release tabletIndications: Postoperative pain,Benign pheochromocytoma, left,H/O partial adrenalectomy (CMS/HCC V24) Take 1 tablet (5 mg total) by mouth every 6 (six) hours if needed for severe pain. Max Daily Amount: 20 mg 12 tablet 5 Active lisinopriL (PRINIVIL,ZESTRIL) 5 mg tablet Take 1 tablet (5 mg total) by mouth. 9 Active Active Problems Problem Noted Date Diagnosed Date Pheochromocytoma of left adrenal gland 5 Benign pheochromocytoma, left 2024 Acute deep vein thrombosis ( DVT) of both lower extremities (CMS/HCC V24, CMS/HCC V28) 2024 Bilateral pulmonary embolism (CMS/HCC V24, CMS/H CC V28) 10/08/2024 Encounters Date Type Department Care Team Description 02/11/2025 9:45 AM EDT Office Visit General Surgery [address] [place] [phone] Krista Newman MD Pheochromocytoma of left adrenal gland (Primary Dx) 02/10/2025 10:15 AM EDT Office Visit [facility] Hematology Oncology [address] [place] [address] Chandrakant Odell MD Acute deep vein thrombosis (DVT) of other specified vein of both lower extremities (CMS/HCC V24, CMS/HCC V28) (Primary Dx); Bilateral pulmonary embolism (CMS/HCC V24, CMS/HCC V28); Benign pheochromocytoma, left 01/28/2025 12:42 PM EDT Anesthesia Event [facility] OR [address] [place] [phone] Lamine Cole MD Hard, Shannon, CRNA 01/28/2025 12:00 PM EDT - 01/28/2025 2:30 PM EDT Surgery [facility] OR [address] [place] [phone] Krista Newman MD LAPAROSCOPIC LEFT ADRENALECTOMY [52380 (CPT )] 01/28/2025 10:19 AM EDT - 01/29/2025 3:34 PM EDT Hospital Encounter [facility] Intermediate Care Unit [address] [place] [address] Krista Newman MD Kokosadze, Estate, MD Postoperative pain (Primary Dx); Pheochromocytoma of left adrenal gland; Benign pheochromocytoma, left; H/O partial adrenalectomy ([facility] V24) Discharge Disposition: Home or Self Care 01/17/2025 Telephone General Surgery [facility] [address] [facility] [address] [place] [address] Krista Newman MD 12/11/2024 Telephone Breast Care Center [facility] [address] [place] [address] Krista Newman MD from Last 3 Months Surgical History Surgery Date Site/Laterality Comments TOTAL KNEE ARTHROPLASTY Bilateral SECTION, CLASSIC x2 BACK SURGERY lumbar Medical History Medical History Date Comments HTN (hypertension) Hypothyroidism Hyperlipidemia Dystonia rest Migraines PONV (postoperative nausea and vomiting) Delayed emergence from general anesthesia Pulmonary emboli ([facility] V24, [facility] V28) september 2024 Adrenal mass ([facility] V24) Social History Tobacco Use [...] Description 09/15/2025 11:00 AM EDT Office Visit [facility] Hematology Oncology [address] [place] [address] Chandrakant Vides MD [address] [place] [phone] Health Maintenance Due Date Last Done Comments Breast Cancer Screening 1960 Colorectal Cancer Screening: Colonoscopy 1960 Pneumococcal Vaccine: 50+ Years (1 of 1 - PCV) 2008 RSV Immunization Adult Patients (1 - Risk 50-74 years 1-dose series) 2008 Depression Screening 05/15/2024 Cholesterol Screening (Lipid Panel) [...] this topic Medical Devices Implanted Type Area Outside Sales Executive Device Identifier Shelf Expiration Date Model / [...] LINE (CHARGE) Routine 01/28/2025 1:15 PM EDT [place] LAP SURG W ADRENALECTOMY/EXP ADRENAL GLAND TRANSABDOMINAL/LUMB [...] of2 resultswithin the time period is included. [facility] WBC 11.0(H) 4.8 - 10.8 K/mcL LAB HEMETOLOGY METHOD 01/29/2025 6:49 AM [facility] RBC 4.00 3.80 - 4.80 M/mcL LAB HEMETOLOGY METHOD 01/29/2025 6:49 AM [facility] Hemoglobin 11.1(L) 11.5 - 16.0 g/dL LAB HEMETOLOGY METHOD 01/29/2025 6:49 AM [facility] Hematocrit 34.8(L) 35.0 - 47.0 % LAB HEMETOLOGY METHOD [facility] MCV 87.4 79.0 - 98.0 FL LAB HEMETOLOGY METHOD 01/29/2025 6:49 AM [facility] MCH 27.9 27.0 - 32.0 pcg LAB HEMETOLOGY METHOD 01/29/2025 6:49 AM [facility] MCHC 31.9(L) 32.0 - 37.0 g/dL LAB HEMETOLOGY METHOD 01/[facility]/2025 6[facility] RDW 14.1 11.0 - 15.0 % LAB HEMETOLOGY METHOD 01/29/2025 6:49 AM [facility] Platelets 259 130 - 400 K/mcL LAB HEMETOLOGY METHOD 01/29/2025 6:49 AM [facility] MPV 10.4 7.0 - 11.0 FL LAB HEMETOLOGY METHOD 01/29/2025 6:49 [facility] NRBC 0.0 <1.0 % LAB HEMETOLOGY METHOD 01/29/2025 6:49 AM [facility] NRBC Absolute 0.00 <0.10 K/mcL LAB HEMETOLOGY METHOD 01/29/2025 6:49 AM [facility] Neutrophils Relative 83.9 % LAB HEMETOLOGY METHOD 01/29/2025 6:49 AM [facility] Lymphocytes Relative 9.5 % LAB HEMETOLOGY METHOD 01/29/2025 6:49 AM [facility] Monocytes Relative 5.7 % LAB HEMETOLOGY METHOD 01/29/2025 6:49 AM [facility] Eosinophils Relative 0.1 % LAB HEMETOLOGY METHOD 01/29/2025 6:49 AM [facility] Basophils Relative 0.4 % LAB HEMETOLOGY METHOD 01/29/2025 6:49 AM [facility] Immature Granulocytes Relative 0.4 % LAB HEMETOLOGY METHOD 01/29/2025 6:49 AM [facility] Neutrophils Absolute 9.21(H) 1.50 - 7.00 K/mcL LAB HEMETOLOGY METHOD 01/29/2025 6:49 AM [facility] Lymphocytes Absolute 1.04 1.00 - 5.00 K/mcL LAB HEMETOLOGY METHOD 01/29/2025 6:49 AM [facility] Monocytes Absolute 0.63 0.20 - 1.00 K/mcL LAB HEMETOLOGY METHOD 01/29/2025 6:49 AM [facility] Eosinophils Absolute 0.01 0.00 - 0.50 K/mcL LAB HEMETOLOGY METHOD 01/29/2025 6:49 AM [facility] Basophils Absolute 0.04 0.00 - 0.20 K/mcL LAB HEMETOLOGY METHOD 01/29/2025 6:49 AM T [facility] Immature Granulocytes Absolute 0.04(H) 0.00 - 0.03 K/mcL LAB HEMETOLOGY METHOD 01/29/2025 6:49 AM [facility] Blood Venous blood specimen / Unknown Venipuncture / Unknown 01/29/2025 6:06 AM EDT 01/29/2025 6:13 AM EDT Stacey CROW LAB BLOOD ORDERABLES Final Re sult [facility] [address] [place] [address], [place] [phone] * (ABNORMAL) Comprehensive metabolic panel (01/29/2025 6:06 AM EDT) Only the most recent of2 resultswithin the time period is included. Sodium 137 133 - 145 mmol/L LAB CHEMISTRY METHOD 01/29/2025 7:07 AM [facility] Potassium 3.6 3.5 - 5.5 mmol/L LAB CHEMISTRY METHOD 01/29/2025 7:07 AM [facility] Chloride 107 96 - 110 mmol/L LAB CHEMISTRY METHOD 01/29/2025 7:07 AM [facility] CO2 23 21 - 32 mmol/L LAB CHEMISTRY METHOD 01/29/2025 7:07 AM [facility] Anion Gap 7 3 - 11 LAB CHEMISTRY METHOD 01/29/2025 7:07 AM [facility] Glucose 78 70 - 100 mg/dL LAB CHEMISTRY METHOD 01/29/2025 7:07 AM [facility] BUN 11 5 - 25 mg/dL LAB CHEMISTRY METHOD 01/29/2025 7:07 AM [facility] Creatinine 0.44(L) 0.50 - 1.10 mg/dL LAB CHEMISTRY METHOD 01/29/2025 7:07 AM [facility] eGFR 107 >=60 mL/min/1. 73m2 LAB CHEMISTRY METHOD 01/29/2025 7:07 AM [facility] Comment:Calculation based on the Chronic Kidney Disease Epidemiology Collaboration (CKD-EPI) equation refit without adjustment for race. BUN/Creatinine Ratio 25.0 LAB CHEMISTRY METHOD 01/29/2025 7:07 AM [facility] Calcium 8.6 8.5 - 10.5 mg/dL LAB CHEMISTRY METHOD 01/29/2025 7:07 AM [facility] AST (SGOT) 14 10 - 42 unit/L LAB CHEMISTRY METHOD 01/29/2025 7:07 AM [facility] ALT (SGPT) 17 10 - 60 unit/L LAB CHEMISTRY METHOD 01/29/2025 7:07 AM [facility] Alkaline Phosphatase 62 42 - 121 unit/L LAB CHEMISTRY METHOD 01/29/2025 7:07 AM [facility] Total Protein 5.8(L) 6.0 - 8.0 g/dL LAB CHEMISTRY METHOD 01/29/2025 7:07 AM [facility] Albumin 3.1(L) 3.2 - 5.0 g/dL LAB CHEMISTRY METHOD 01/29/2025 7:07 AM [facility] Total Bilirubin 0.5 0.0 - 1.4 mg/dL LAB CHEMISTRY METHOD 01/29/2025 7:07 AM [facility] Blood Venous blood specimen / Unknown Venipuncture / Unknown 01/29/2025 6:06 AM EDT 01/29/2025 6:13 AM EDT us Krista Newman MD LAB BLOOD ORDERABLES Fi nal Result [facility] [address] [place] [address], * Tissue exam (01/28/2025 2:36 PM EDT) Final Diagnosis Left adrenal gland, adrenalectomy: Pheochromocytoma - Invasion through the capsule into the periadrenal adipose tissue present - Margins uninvolved 3:38 PM EDT [facility] at 1538 EDT Comment All [...] and hyperchromasia for a score of 9. 5 3:38 PM EDT [facility] Synoptic Checklist Paraganglioma and Pheochromocytoma [...] Medullary Hyperplasia: Absent SPECIAL STUDIES Keratins: Negative 3:38 PM T [facility] Gross Description A. Gland, Adrenal [...] are absent. A digital photograph is taken. Shore Man sections are submitted in seven cassettes, one piece each. Additional sections are submitted in cassettes eight through fourteen, two pieces each. KR 3:38 PM [facility] Special Stains To confirm the diagnosis of pheochromocytoma, immunohistochemical staining was performed with appropriate controls. INSM1: Diffusely expressed, confirming neuroendocrine origin Cytokeratin JO: No expression, excluding neuroendocrine carcinoma Melan A: No expression, excluding adrenal cortical neoplasm 3:38 PM [facility] Disclaimer NOTE: The immunohistochemical tests and in situ hybridization tests were developed and their performance characteristics were determined by [facility]. They have not been cleared [...] formalin fixed and paraffin embedded. 3:38 PM [facility] Tissue Structure of left adrenal gland / Unknown 01/28/2025 2:36 PM EDT 01/28/2025 4:03 PM EDT Krista Newman MD LAB PATHOLOGY ORDERABLE S Final Result [facility] [address] [place] [address], [place] [phone] * TH AN ENDOTRACHEAL(NO CHARGE) (01/28/2025 1:20 PM EDT) Stacey Aguayo CRNA - 01/28/2025 1:20 PM EDT Stacey Jose CRNA 01/28/2025 1:21 PM General Information and Staff Patient location during procedure: OR Anesthesiologist: Bossman Mckenzie MD Resident/VP PURCHASING: Stacey Jose CRNA Performed: resident/VP PURCHASING/CAA Performed by: Stacey Jose CRNA Authorized by: [...] to verify the correct patient, procedure, equipment, shipping support clerk and site/side marked as required. Preparation: Patient [...] ABO Group A 01/28/2025 12:12 PM EDT [facility] Rh Type Negative 01/28/2025 12:12 PM EDT [facility] Antibody Screen Negative 01/28/2025 12:12 PM EDT [facility] Blood Venous blood specimen / Unknown Venipuncture / Unknown 01/28/2025 11:04 AM EDT 01/28/2025 11:13 AM EDT us Krista Newman MD LAB BLOOD BANK TEST ORD ERABLES Final Result [facility] [address] [place] [address], [place] [phone] from Last 3 Months Insurance MEDICARE [facility] Advance Directives Documents on File Type Date Recorded Patient [place] Expl anation Advance Directives and Living Will [...] Agents on File Name Relationship Healthcare Agent [facility] p Communication Peterson Jay First Alternate Health Care Agent Marya Ferreira Daughter Second Alternate Health Care Agent Care Teams Major Assembler Relationship Specialty Start Date End Date Deejay Meza MD [address] [place] [address] Dr [address] [place] PCP - General Internal Medicine 11/07/24
== END 2025-03-13 13:59 | disposition home or self-care (01) ==
PROVIDERS: PCP Internal Medicine; Visit Provider Physician Assistant Medical
DX: J02.9 Acute pharyngitis, unspecified (principal)

== ENCOUNTER 2025-03-13 12:02 | Outpatient (REF) | payer MEDICARE, BC, SELFPAY ==
[2025-03-13 17:28] LABS: Resp Syncy Virus RNA Qual PCR NEGATIVE (Negative); SARS COV2 PCR INHOUSE NEGATIVE (Negative)
== END 2025-03-13 12:03 | disposition home or self-care (01) ==
LOC: HO.LNP 12:02
PROVIDERS: PCP Internal Medicine; Visit Provider Physician Assistant Medical
DX: R09.89 Other specified symptoms and signs involving the circulatory and respiratory systems (principal); R50.9 Fever, unspecified; Z13.89 Encounter for screening for other disorder
CPT/HCPCS: 87637; 99212

== ENCOUNTER 2025-03-19 11:01 | Outpatient (AMB) | payer MEDICARE, BC, SELFPAY ==
--- NOTE | 2025-03-19 11:04 | A.OFFVIS_ITS ---
Intake Visit Reasons: 4M MIGRAINE DYSTONIA Allergies amoxicillin Allergy (Verified 03/13/25 13:03) Nausea and Vomiting HPI Comments Details: 64 y/o woman with severe osteoarthritis, peripheral neuropathy, tremor, migraine, and left foot dystonia. She is presenting with headaches managed by medication. She describes effective management of her headaches with Topamax, finding it necessary to maintain the medication to prevent headache recurrence. In September, post a previous medical appointment, the patient experienced a significant medical event involving the development of blood clots in her lungs. 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 The association between the tumor and her pulmonary embolism has been discussed, with differing opinions from her installment loan collector and surgeon. She is on Eliquis for thromboprophylaxis, with continuous care from her installment loan collector, Dr. Escobar. The patient also has a past medical history of miscarriage. [facility] Medical History (Updated 03/19/25 @ 11:06 by Kaylee Bourgeois MD) Pulmonary embolism Vitamin B12 deficiency Arthritis Hypothyroidism PONV (postoperative nausea and vomiting) Celiac disease Overweight (BMI 25.0-29.9) Reactive depression Anxiety Primary osteoarthritis of right knee Insomnia Migraine Dystonia Lumbar degenerative disc disease Impaired fasting glucose Cervical spondylosis Vitamin D deficiency Acquired hypothyroidism Pure hypercholesterolemia Benign essential hypertension Surgical History (Updated 02/10/25 @ 04:58 by Deejay Meza MD) History of total adrenalectomy History of arthroplasty of right knee (~10/24/20) H/O esophagogastroduodenoscopy H/O colonoscopy History of hand surgery History of lumbar surgery History of arthroplasty of left knee Family History Father Cancer Mother CRD (chronic renal disease) CVD (cardiovascular disease) Myocardial infarction Sister Sarcoma Sister Melanoma Social History Housing: Apartment Alcohol intake: current Alcohol intake frequency: does not drink Patient Tobacco Use Status: Never used Tobacco e-Cigarette/Vaping Use: Never Used Second Hand Smoke Exposure: Yes service: No Current occupational status: employed and retired Current occupational exposures/hazards: No Cognitive needs: No Hearing needs: No Vision needs: No Review of Systems Narrative - Neurological: Reports headaches; currently managed with medication. - Hematologic: Reports history of blood clots in lungs; on Eliquis. - Endocrine: Reports previous benign adrenal gland tumor; surgically removed. - Obstetric: History of miscarriage. - General: Denies any unreported symptoms. Physical Exam Neuro Other: Mental Status: Alert and oriented to person, place, and time. Normal attention. Normal spontaneous speech, fluency, and comprehension. No obvious issues with mood and memory. Affect is appropriate. Cranial Nerves: CN II: Visual raza full to confrontation, visual acuity intact. CN III, IV, : Pupils equal, round, reactive to light and accommodation. Extraocular movements are normal. CN V: Facial sensation is normal. CN VII: Facial movements symmetrical. CN VIII: Hearing intact to bedside conversation is normal. CN IX, X: Palate elevates symmetrically. CN XI: Shoulder shrug and head turn symmetrical. CN XII: Tongue midline without atrophy or fasciculations. Motor: Bulk and tone normal in all extremities. No significant muscle weakness in arms and legs. No drift. Reflexes: Deep tendon reflexes 2+ and symmetric. Plantar response down-going bilaterally. Coordination: [id number] and [id number] testing normal. No dysmetria. Gait and Station: No obvious gait abnormality. No ataxia or instability. Extrapyramidal: Full facial expressions and blinking. No rigidity. Movements are appropriate with no tremor or abnormality. Speech: Normal; no dysarthria or tremor. Assessment & Plan Assessment & Plan (1) Migraine: Comment[place] [facility] [place] WNL. Code(s): G43.909 - Migraine, unspecified, not intractable, without status migrainosus Category: Medical Qualifiers: Intractability: not intractable Migraine type: unspecified Status migrainosus presence: without status migrainosus Qualified Code(s): G43.909 - Migraine, unspecified, not intractable, without status migrainosus (2) Dystonia: Comment: NCV/EMG LE Chronic right lower lumbar radiculopathy. 01/12/22. [place] [facility] [place]: DJD, disc space narrowing, ant subluxation of C3 and C4, about 3mm NCV/EMG LE 10/31/17 Moderately severe right peroneal neuropathy. Mild to moderate bilateral distal tibial neuropathy across the Tarsal tunnel. NCV/EMG LE 10/16/12 NO SIGNIFICANT ABNORMALITY NOTED. Code(s): G24.9 - Dystonia, unspecified Category: Medical Plan Impression: 1. Migraine without aura 2. Left foot dystonia and associated pain Recommendations: 1. Topiramate 25 mg at night 2. Sumatriptan 50 mg 1 at bedtime as needed 3. Gabapentin 600 mg 1 at bedtime Medications: Refilled topiramate 25 mg PO BEDTIME 90 tabs 1RF Coding Level of Care Code Est Pt Level 4 (17103) Diagnoses Migraine without status migrainosus, not intractable, unspecified migraine type G43.909 Intractability: not intractable Migraine type: unspecified Status migrainosus presence: without status migrainosus Dystonia G24.9
--- OUTSIDE RECORDS SUMMARY | 2025-03-19 13:10 | XMS_ITS | Clinical Summary ---
Author Organization [facility] Address [address] [place] [address] Phone Care Team Providers Care Bowling Pin Setters Installer Name Role Phone Deejay Meza MD Primary [...] 9:45 AM EDT Office Visit General Surgery [address] [place] [phone] Krista Newman MD Pheochromocytoma of left adrenal gland (Primary Dx) 02/10/2025 10:15 AM EDT Office Visit [facility] Hematology Oncology [address] [place] [address] Chandrakant Odell MD Acute deep vein thrombosis (DVT) of other specified vein of both lower extremities (CMS/HCC V24, CMS/HCC V28) (Primary Dx); Bilateral pulmonary embolism (CMS/HCC V24, CMS/HCC V28); Benign pheochromocytoma, left 01/28/2025 12:42 PM EDT Anesthesia Event [facility] OR [address] [place] [phone] Lamine Cole MD Hard, Shannon, CRNA 01/28/2025 12:00 PM EDT - 01/28/2025 2:30 PM EDT Surgery [facility] OR [address] [place] [phone] Krista Newman MD LAPAROSCOPIC LEFT ADRENALECTOMY [62234 (CPT )] 01/28/2025 10:19 AM EDT - 01/29/2025 3:34 PM EDT Hospital Encounter [facility] Intermediate Care Unit [address] [place] [address] Krista Newman MD Kokosadze, Estate, MD Postoperative pain (Primary Dx); Pheochromocytoma of left adrenal gland; Benign pheochromocytoma, left; H/O partial adrenalectomy ([facility] V24) Discharge Disposition: Home or Self Care 01/17/2025 Telephone General Surgery - [place] [address] [facility] [address] [place] [address] Krista Newman MD from Last 3 Months Surgical History Surgery Date Site/Laterality Comments TOTAL KNEE ARTHROPLASTY Bilateral SECTION, CLASSIC x2 BACK SURGERY lumbar Medical History Medical History Date Comments HTN (hypertension) Hypothyroidism Hyperlipidemia Dystonia rest Migraines PONV (postoperative nausea and vomiting) Delayed emergence from general anesthesia Pulmonary emboli ([facility] V24, [facility] V28) september 2024 Adrenal mass ([facility] V24) Social History Tobacco Use Types Packs/Day [...] Description 09/15/2025 11:00 AM EDT Office Visit [facility] Hematology Oncology [address] [place] [address] Chandrakant Vides MD [address] [place] [address] Health Maintenance Due Date Last [...] this topic Medical Devices Implanted Type Area Associate Professor [employer] Device Identifier Shelf Expiration Date Model / [...] LINE (CHARGE) Routine 01/28/2025 1:15 PM EDT [place] LAP SURG W ADRENALECTOMY/EXP ADRENAL GLAND TRANSABDOMINAL/LUMB [...] of2 resultswithin the time period is included. [facility] Signature WBC 11.0(H) 4.8 - 10.8 K/mcL LAB HEMETOLOGY METHOD 01/29/2025 6:49 AM [facility] RBC 4.00 3.80 - 4.80 M/mcL LAB HEMETOLOGY METHOD [facility] Hemoglobin 11.1(L) 11.5 - 16.0 g/dL LAB HEMETOLOGY METHOD 01/29/2025 6:49 AM [facility] Hematocrit 34.8(L) 35.0 - 47.0 % LAB HEMETOLOGY METHOD 01/29/2025 6:49 AM [facility] MCV 87.4 79.0 - 98.0 FL LAB HEMETOLOGY METHOD 01/29/2025 6:49 AM [facility] MCH 27.9 27.0 - 32.0 pcg LAB HEMETOLOGY METHOD 01/29/2025 6:49 AM [facility] MCHC 31.9(L) 32.0 - 37.0 g/dL LAB HEMETOLOGY METHOD 01/29/2025 6:49 AM [facility] RDW 14.1 11.0 - 15.0 % LAB HEMETOLOGY METHOD 01/29/2025 6:49 AM [facility] Platelets 259 130 - 400 K/mcL LAB HEMETOLOGY METHOD 01/29/2025 6:49 AM [facility] MPV 10.4 7.0 - 11.0 FL LAB HEMETOLOGY METHOD 01/29/2025 6:49 AM [facility] NRBC 0.0 <1.0 % LAB HEMETOLOGY METHOD 01/29/2025 6:[facility] NRBC Absolute 0.00 <0.10 K/mcL LAB HEMETOLOGY METHOD 01/29/2025 6:49 AM T [facility] Neutrophils Relative 83.9 % LAB HEMETOLOGY METHOD 01/29/2025 6:49 AM [facility] Lymphocytes Relative 9.5 % LAB HEMETOLOGY METHOD 01/29/2025 6:49 AM [facility] Monocytes Relative 5.7 % LAB HEMETOLOGY METHOD 01/29/2025 6:49 AM [facility] Eosinophils Relative 0.1 % LAB HEMETOLOGY METHOD 01/29/2025 6:49 AM [facility] Basophils Relative 0.4 % LAB HEMETOLOGY METHOD 01/29/2025 6:49 AM [facility] Immature Granulocytes Relative 0.4 % LAB HEMETOLOGY METHOD 01/29/2025 6:49 AM [facility] Neutrophils Absolute 9.21(H) 1.50 - 7.00 K/mcL LAB HEMETOLOGY METHOD 01/29/2025 6:49 AM [facility] Lymphocytes Absolute 1.04 1.00 - 5.00 K/mcL LAB HEMETOLOGY METHOD 01/29/2025 6:49 AM [facility] Monocytes Absolute 0.63 0.20 - 1.00 K/mcL LAB HEMETOLOGY METHOD 01/29/2025 6:49 AM [facility] Eosinophils Absolute 0.01 0.00 - 0.50 K/mcL LAB HEMETOLOGY METHOD 01/29/2025 6:49 AM [facility] Basophils Absolute 0.04 0.00 - 0.20 K/mcL LAB HEMETOLOGY METHOD 01/29/2025 6:49 AM [facility] Immature Granulocytes Absolute 0.04(H) 0.00 - 0.03 K/mcL LAB HEMETOLOGY METHOD 01/29/2025 6:49 AM [facility] Blood Venous blood specimen / Unknown Venipuncture / Unknown 01/29/2025 6:06 AM EDT 01/29/2025 6:13 AM EDT Stacey CROW LAB BLOOD ORDERABLES Final Re sult [facility] [address] [place] [address], [place] [phone] * (ABNORMAL) Comprehensive metabolic panel (01/29/2025 6:06 AM EDT) Only the most recent of2 resultswithin the time period is included. Sodium 137 133 - 145 mmol/L LAB CHEMISTRY METHOD 01/29/2025 7:07 AM [facility] Potassium 3.6 3.5 - 5.5 mmol/L LAB CHEMISTRY METHOD 01/29/2025 7:07 AM [facility] Chloride 107 96 - 110 mmol/L LAB CHEMISTRY METHOD 01/29/2025 7:07 AM [facility] CO2 23 21 - 32 mmol/L LAB CHEMISTRY METHOD 01/29/2025 7:07 AM [facility] Anion Gap 7 3 - 11 LAB CHEMISTRY METHOD 01/29/2025 7:07 AM [facility] Glucose 78 70 - 100 mg/dL LAB CHEMISTRY METHOD 01/29/2025 7:07 AM [facility] BUN 11 5 - 25 mg/dL LAB CHEMISTRY METHOD 01/29/2025 7:07 AM [facility] Creatinine 0.44(L) 0.50 - 1.10 mg/dL LAB CHEMISTRY METHOD 01/29/2025 7:07 AM [facility] eGFR 107 >=60 mL/min/1. 73m2 LAB CHEMISTRY METHOD 01/29/2025 7:07 AM [facility] Comment:Calculation based on the Chronic Kidney Disease Epidemiology Collaboration (CKD-EPI) equation refit without adjustment for race. BUN/Creatinine Ratio 25.0 LAB CHEMISTRY METHOD 01/29/2025 7:07 AM [facility] Calcium 8.6 8.5 - 10.5 mg/dL LAB CHEMISTRY METHOD 01/29/2025 7:07 AM [facility] AST (SGOT) 14 10 - 42 unit/L LAB CHEMISTRY METHOD 01/29/2025 7:07 AM [facility] ALT (SGPT) 17 10 - 60 unit/L LAB CHEMISTRY METHOD 01/29/2025 7:07 AM [facility] Alkaline Phosphatase 62 42 - 121 unit/L LAB CHEMISTRY METHOD 01/29/2025 7:07 AM [facility] Total Protein 5.8(L) 6.0 - 8.0 g/dL LAB CHEMISTRY METHOD 01/29/2025 7:07 AM [facility] Albumin 3.1(L) 3.2 - 5.0 g/dL LAB CHEMISTRY METHOD 01/29/2025 7:07 AM [facility] Total Bilirubin 0.5 0.0 - 1.4 mg/dL LAB CHEMISTRY METHOD 01/29/2025 7:07 AM [facility] Blood Venous blood specimen / Unknown Venipuncture / Unknown 01/29/2025 6:06 AM EDT 01/29/2025 6:13 AM EDT us Krista Newman MD LAB BLOOD ORDERABLES Fi nal Result [facility] [address] [place] [address], * Tissue exam (01/28/2025 2:36 PM EDT) Final Diagnosis Left adrenal gland, adrenalectomy: Pheochromocytoma - Invasion through the capsule into the periadrenal adipose tissue present - Margins uninvolved 5 3:38 PM EDT [facility] at 1538 EDT Comment All [...] score of 9. 5 3:38 PM EDT [facility] Synoptic Checklist Paraganglioma and Pheochromocytoma [...] identified Lymphatic Invasion: Not identified Tumor Extent: Nathanael-adrenal or nathanael-tumoral soft tissue invasion Tumor Proliferative Activity: Ki-67 [...] Absent SPECIAL STUDIES Keratins: Negative 3:38 PM EDT [facility] Gross Description A. Gland, Adrenal Left, : Labeled left adre, adrenal L . Received in formalin is a 44 g, 7.5 x 4.9 x 3.0 cm adrenal gland that is surface by nathanael-adrenal adipose tissue. The external surface is inked black. Sectioning reveals a 3.1 x 2.8 x 2.8 cm well-circumscribed, hemorrhagic, yellow-pink lesion. The lesion grossly appears to be replacing the adrenal parenchyma with only scant yellow streaks noted in the capsule. No definitef extracapsular invasion into the nathanael-adrenal adipose tissue is identified. The lesion is less than 0.1 cm to the closest radial margin. Lymph nodes are absent. A digital photograph is taken. Cold Rolling Supervisor sections are submitted in seven cassettes, one piece each. Additional sections are submitted in cassettes eight through fourteen, two pieces each. KR 3:38 PM EDT [facility] Special Stains To confirm the diagnosis of pheochromocytoma, immunohistochemical staining was performed with appropriate controls. INSM1: Diffusely expressed, confirming neuroendocrine origin Cytokeratin JO: No expression, excluding neuroendocrine carcinoma Melan A: No expression, excluding adrenal cortical neoplasm 3:38 PM EDT [facility] Disclaimer NOTE: The immunohistochemical tests and in situ hybridization tests were developed and their performance characteristics were determined by [facility]. They have not [...] fixed and paraffin embedded. 3:38 PM EDT [facility] Tissue Structure of left adrenal gland / Unknown 01/28/2025 2:36 PM EDT 01/28/2025 4:03 PM EDT us Krista Newman MD LAB PATHOLOGY ORDERABLE S Final Result [facility] [address] [place] [address], [place] [phone] * MJ AN ENDOTRACHEAL(NO CHARGE) (01/28/2025 1:20 PM EDT) Stacey Aguayo CRNA - 01/28/2025 1:20 PM EDT Stacey Jose CRNA 01/28/2025 1:21 PM General Information and Staff Patient location during procedure: OR Anesthesiologist: Bossman Mckenzie MD Resident/FUR FINISHER: Stacey Jose CRNA Performed: resident/FUR FINISHER/CAA Performed by: Stacey Jose CRNA Authorized by: [...] to verify the correct patient, procedure, equipment, director of academic support and site/side marked as required. Preparation: Patient [...] ABO Group A 01/28/2025 12:12 PM EDT [facility] Rh Type Negative 01/28/2025 12:12 PM EDT [facility] Antibody Screen Negative 01/28/2025 12:12 PM EDT [facility] Blood Venous blood specimen / Unknown Venipuncture / Unknown 01/28/2025 11:04 AM EDT 01/28/2025 11:13 AM EDT us Krista Newman MD LAB BLOOD BANK TEST ORD ERABLES Final Result [facility] [address] [place] [address], from Last 3 Months Insurance MEDICARE [facility] Advance Directives Documents on File Type Date Recorded Patient Cold Rolling Supervisor Expl anation Advance Directives and Living Will [...] Agents on File Name Relationship Healthcare Agent [facility] Communication Arleen Jay First Alternate Health Care Agent Marya Ferreira Daughter Second Alternate Health Care Agent Care Teams Bowling Pin Setters Installer Relationship Specialty Start Date End Date Deejay Meza MD [address] [place] [address] Dr [address] [place], [place] PCP - General Internal Medicine 11/07/24
--- OUTSIDE RECORDS SUMMARY | 2025-03-19 13:10 | XMS_ITS | Patient Health Record ---
[facility] Address [address] [place] [address] Care Team Providers Care Pewter Finisher Name Role Phone Brenden Rosales MD Primary Care Provider Wai Sainz Unavailable [phone] Reason For Referral No Information Medications Medication [...] W/U Status Risk Notes Problem Verruca plantaris (55214167) Verruca Plantaris (078.19) Active confirmed Problem Disorder of joint of ankle and/or foot (095028792) Arthritis - Degenerative (719.97) Active confirmed Problem Acquired deformity of joint of big toe (disorder) (719062822) Hallux Limitus (735.8) Active confirmed Problem Pain in limb (35859222) Pain in Limb (729.5) Active confirmed Plan Of Treatment Pending Test Test Name Order Date 31928-[id number] Destruction, -06/06/2013 70172-Kvlh Destruction, 05-2808/08/2013 Insurance Providers Payer Name Payer Address Payer Phone Subscriber Number Group Number Insured Name Patient Relationship to Insured Coverage Start Date Coverage End Date [facility] [address] [place] [address] [id number] PETERSON DRUMMOND Self - patient is the insured 9 Medical (General) History Medical History History ICD Code Back,Hip,and Knee pain Cholesterol Headaches High blood pressure Chicken pox Hypothyroidism Surgical History Surgery Date(Month/Year) section 1987,[address] Dangotes/ 1 Dr Travis garcia surgery back surgery cataract surgery OD cataract surgery OS 2013
== END 2025-03-19 11:11 | disposition home or self-care (01) ==
LOC: HO.HSM 11:02
PROVIDERS: PCP Internal Medicine; Referring Provider Internal Medicine; Visit Provider Psychiatry & Neurology Neurology
DX: G43.909 Migraine, unspecified, not intractable, without status migrainosus (principal); G24.9 Dystonia, unspecified
CPT/HCPCS: 99214

== ENCOUNTER → 2025-03-19 11:01 | Outpatient (BNVA) | payer MEDICARE, BC, SELFPAY | PROVIDERS: PCP Internal Medicine; Referring Provider Internal Medicine; Visit Provider Psychiatry & Neurology Neurology | DX: G43.909 Migraine, unspecified, not intractable, without status migrainosus (principal); G24.9 Dystonia, unspecified; M17.11 Unilateral primary osteoarthritis, right knee; Z86.711 Personal history of pulmonary embolism; Z79.01 Long term (current) use of anticoagulants; D35.00 Benign neoplasm of unspecified adrenal gland | CPT/HCPCS: 99212 ==

== ENCOUNTER 2025-03-19 11:27 | Outpatient (AMB) | payer MEDICARE, BC, SELFPAY | END 2025-03-19 11:28 | disposition home or self-care (01) | LOC: HO.HMGAL 11:27 | PROVIDERS: PCP Internal Medicine; Visit Provider Registered Nurse Emergency | DX: J30.89 Other allergic rhinitis (principal) | CPT/HCPCS: 95117; 95165 ==

== ENCOUNTER 2025-04-16 13:54 | Outpatient (AMB) | payer MEDICARE, BC, SELFPAY ==
--- OUTSIDE RECORDS SUMMARY | 2025-04-16 16:40 | XMS_ITS | Clinical Summary ---
Author Organization [facility] Address [address] [place] [address] Phone Care Team Providers Care Continuous Mining Machine Coal Miner Name Role Phone Deejay Meza MD Primary [...] 9:45 AM EDT Office Visit General Surgery [address] [place] [phone] Krista Newman MD Pheochromocytoma of left adrenal gland (Primary Dx) 02/10/2025 10:15 AM EDT Office Visit Hematology Oncology [address] [place] [address] Chandrakant Odell MD Acute deep vein thrombosis (DVT) of other specified vein of both lower extremities (CMS/HCC V24, CMS/HCC V28) (Primary Dx); Bilateral pulmonary embolism (CMS/HCC V24, CMS/HCC V28); Benign pheochromocytoma, left 01/28/2025 12:42 PM EDT Anesthesia Event [facility] [place] [address] [place] [phone] Lamine Cole MD Hard, Shannon, CRNA 01/28/2025 12:00 PM EDT - 01/28/2025 2:30 PM EDT Surgery [facility] OR [address] [place] [phone] Krista Newman MD LAPAROSCOPIC LEFT ADRENALECTOMY [91686 (CPT )] 01/28/2025 10:19 AM EDT - 01/29/2025 3:34 PM EDT Hospital Encounter Intermediate Care Unit [address] [place] [address] Krista Newman MD Kokosadze, Estate, MD Postoperative pain (Primary Dx); Pheochromocytoma of left adrenal gland; Benign pheochromocytoma, left; H/O partial adrenalectomy ([facility] V24) Discharge Disposition: Home or Self Care 01/17/2025 Telephone General Surgery - [place] [address] [facility] [address] [place] [address] Krista Newman MD from Last 3 Months Surgical History Surgery Date Site/Laterality Comments TOTAL KNEE ARTHROPLASTY Bilateral SECTION, CLASSIC x2 BACK SURGERY lumbar Medical History Medical History Date Comments HTN (hypertension) Hypothyroidism Hyperlipidemia Dystonia rest Migraines PONV (postoperative nausea and vomiting) Delayed emergence from general anesthesia Pulmonary emboli ([facility] V24, [facility] V28) september 2024 Adrenal mass ([facility] V24) Social History Tobacco Use [...] Description 09/15/2025 11:00 AM EDT Office Visit Hematology Oncology [address] [place] [address] Chandrakant Vides MD [address] [place] [address] Health Maintenance Due Date Last [...] this topic Medical Devices Implanted Type Area Classifying Machine Operator Device Identifier Shelf Expiration Date Model / [...] LINE (CHARGE) Routine 01/28/2025 1:15 PM EDT [place] LAP SURG W ADRENALECTOMY/EXP ADRENAL GLAND TRANSABDOMINAL/LUMB [...] of2 resultswithin the time period is included. [facility] Signature WBC 11.0(H) 4.8 - 10.8 K/mcL LAB HEMETOLOGY METHOD 01/29/2025 6:[address] [facility] RBC 4.00 3.80 - 4.80 M/mcL LAB HEMETOLOGY [facility] Hemoglobin 11.1(L) 11.5 - 16.0 g/dL LAB HEMETOLOGY METHOD 01/29/2025 6:[address] [facility] Hematocrit 34.8(L) 35.0 - 47.0 % LAB HEMETOLOGY METHOD 01/29/2025 6:[address] [facility] MCV 87.4 79.0 - 98.0 FL LAB HEMETOLOGY METHOD 01/29/2025 6:[address] [facility] MCH 27.9 27.0 - 32.0 pcg LAB HEMETOLOGY METHOD 01/29/2025 6:[address] [facility] MCHC 31.9(L) 32.0 - 37.0 g/dL LAB HEMETOLOGY METHOD 01/29/2025 6:[address] [facility] RDW 14.1 11.0 - 15.0 % LAB HEMETOLOGY METHOD 01/29/2025 6:[address] [facility] Platelets 259 130 - 400 K/mcL LAB HEMETOLOGY METHOD 01/29/2025 6:[address] [facility] MPV 10.4 7.0 - 11.0 FL LAB HEMETOLOGY METHOD 01/29/2025 6:[address] [facility] NRBC 0.0 <1.0 % LAB HEMETOLOGY METHOD [facility] NRBC Absolute 0.00 <0.10 K/mcL LAB HEMETOLOGY METHOD 01/29/2025 6:49 AM T [facility] Neutrophils Relative 83.9 % LAB HEMETOLOGY METHOD 01/29/2025 6:[address] [facility] Lymphocytes Relative 9.5 % LAB HEMETOLOGY METHOD 01/29/2025 6:[address] [facility] Monocytes Relative 5.7 % LAB HEMETOLOGY METHOD 01/29/2025 6:[address] [facility] Eosinophils Relative 0.1 % LAB HEMETOLOGY METHOD 01/29/2025 6:[address] [facility] Basophils Relative 0.4 % LAB HEMETOLOGY METHOD 01/29/2025 6:[address] [facility] Immature Granulocytes Relative 0.4 % LAB HEMETOLOGY METHOD 01/29/2025 6:[address] [facility] Neutrophils Absolute 9.21(H) 1.50 - 7.00 K/mcL LAB HEMETOLOGY METHOD 01/29/2025 6:[address] [facility] Lymphocytes Absolute 1.04 1.00 - 5.00 K/mcL LAB HEMETOLOGY METHOD 01/29/2025 6:[address] [facility] Monocytes Absolute 0.63 0.20 - 1.00 K/mcL LAB HEMETOLOGY METHOD 01/29/2025 6:[address] [facility] Eosinophils Absolute 0.01 0.00 - 0.50 K/mcL LAB HEMETOLOGY METHOD 01/29/2025 6:[address] [facility] Basophils Absolute 0.04 0.00 - 0.20 K/mcL LAB HEMETOLOGY METHOD 01/29/2025 6:[address] [facility] Immature Granulocytes Absolute 0.04(H) 0.00 - 0.03 K/mcL LAB HEMETOLOGY METHOD 01/29/2025 6:[address] [facility] Blood Venous blood specimen / Unknown Venipuncture / Unknown 01/29/2025 6:06 AM EDT 01/29/2025 6:13 AM EDT Stacey CROW LAB BLOOD ORDERABLES Final Re sult [facility] [address] [place] [address], [place] [phone] * (ABNORMAL) Comprehensive metabolic panel (01/29/2025 6:06 AM EDT) Only the most recent of2 resultswithin the time period is included. Sodium 137 133 - 145 mmol/L LAB CHEMISTRY METHOD 01/29/2025 7:[address] [facility] Potassium 3.6 3.5 - 5.5 mmol/L LAB CHEMISTRY METHOD 01/29/2025 7:[address] [facility] Chloride 107 96 - 110 mmol/L LAB CHEMISTRY METHOD 01/29/2025 7:[address] [facility] CO2 23 21 - 32 mmol/L LAB CHEMISTRY METHOD 01/29/2025 7:[address] [facility] Anion Gap 7 3 - 11 LAB CHEMISTRY METHOD 01/29/2025 7:[address] [facility] Glucose 78 70 - 100 mg/dL LAB CHEMISTRY METHOD 01/29/2025 7:[address] [facility] BUN 11 5 - 25 mg/dL LAB CHEMISTRY METHOD 01/29/2025 7:[address] [facility] Creatinine 0.44(L) 0.50 - 1.10 mg/dL LAB CHEMISTRY METHOD 01/29/2025 7:[address] [facility] eGFR 107 >=60 mL/min/1. 73m2 LAB CHEMISTRY METHOD 01/29/2025 7:[address] [facility] Comment:Calculation based on the Chronic Kidney Disease Epidemiology Collaboration (CKD-EPI) equation refit without adjustment for race. BUN/Creatinine Ratio 25.0 LAB CHEMISTRY METHOD 01/29/2025 7:[address] [facility] Calcium 8.6 8.5 - 10.5 mg/dL LAB CHEMISTRY METHOD 01/29/2025 7:[address] [facility] AST (SGOT) 14 10 - 42 unit/L LAB CHEMISTRY METHOD 01/29/2025 7:[address] [facility] ALT (SGPT) 17 10 - 60 unit/L LAB CHEMISTRY METHOD 01/29/2025 7:[address] [facility] Alkaline Phosphatase 62 42 - 121 unit/L LAB CHEMISTRY METHOD 01/29/2025 7:[address] [facility] Total Protein 5.8(L) 6.0 - 8.0 g/dL LAB CHEMISTRY METHOD 01/29/2025 7:[address] [facility] Albumin 3.1(L) 3.2 - 5.0 g/dL LAB CHEMISTRY METHOD 01/29/2025 7:[address] [facility] Total Bilirubin 0.5 0.0 - 1.4 mg/dL LAB CHEMISTRY METHOD 01/29/2025 7:[address] [facility] Blood Venous blood specimen / Unknown Venipuncture / Unknown 01/29/2025 6:06 AM EDT 01/29/2025 6:13 AM EDT us Krista Newman MD LAB BLOOD ORDERABLES Fi nal Result [facility] [address] [place] [address], * Tissue exam (01/28/2025 2:36 PM EDT) Final Diagnosis Left adrenal gland, adrenalectomy: Pheochromocytoma - Invasion through the capsule into the periadrenal adipose tissue present - Margins uninvolved 5 3:38 PM EDT [facility] at 1538 EDT Comment All [...] score of 9. 5 3:38 PM EDT [facility] Synoptic Checklist Paraganglioma and Pheochromocytoma [...] SPECIAL STUDIES Keratins: Negative 3:38 PM EDT [facility] Gross Description A. Gland, Adrenal [...] are absent. A digital photograph is taken. Dentofacial Orthopedics Dentist sections are submitted in seven cassettes, one piece each. Additional sections are submitted in cassettes eight through fourteen, two pieces each. KR 3:38 PM EDT [facility] Special Stains To confirm the diagnosis of pheochromocytoma, immunohistochemical staining was performed with appropriate controls. INSM1: Diffusely expressed, confirming neuroendocrine origin Cytokeratin JO: No expression, excluding neuroendocrine carcinoma Melan A: No expression, excluding adrenal cortical neoplasm 3:38 PM EDT [facility] Disclaimer NOTE: The immunohistochemical tests and in situ hybridization tests were developed and their performance characteristics were determined by [facility]. They have not been cleared [...] fixed and paraffin embedded. 3:38 PM EDT [facility] Tissue Structure of left adrenal gland / Unknown 01/28/2025 2:36 PM EDT 01/28/2025 4:03 PM EDT us Krista Newman MD LAB PATHOLOGY ORDERABLE S Final Result [facility] [address] [place] [address], [place] [phone] * ZY AN ENDOTRACHEAL(NO CHARGE) (01/28/2025 1:20 PM EDT) Stacey Aguayo CRNA - 01/28/2025 1:20 PM EDT Stacey Jose CRNA 01/28/2025 1:21 PM General Information and Staff Patient location during procedure: OR Anesthesiologist: Bossman Mckenzie MD Resident/KEELER POLYGRAPH OPERATOR: Stacey Jose CRNA Performed: resident/KEELER POLYGRAPH OPERATOR/CAA Performed by: Stacey Jose CRNA Authorized by: [...] to verify the correct patient, procedure, equipment, technical support analyst and site/side marked as required. Preparation: Patient [...] ABO Group A 01/28/2025 12:12 PM EDT [facility] Rh Type Negative 01/28/2025 12:12 PM EDT [facility] Antibody Screen Negative 01/28/2025 12:12 PM EDT [facility] Blood Venous blood specimen / Unknown Venipuncture / Unknown 01/28/2025 11:04 AM EDT 01/28/2025 11:13 AM EDT us Krista Newman MD LAB BLOOD BANK TEST ORD ERABLES Final Result [facility] [address] [place] [address], from Last 3 Months Insurance MEDICARE [facility] Advance Directives Documents on File Type Date Recorded Patient Dentofacial Orthopedics Dentist Expl anation Advance Directives and Living Will [...] Agents on File Name Relationship Healthcare Agent [facility] Communication Arleen Jay First Alternate Health Care Agent Marya Ferreira Daughter Second Alternate Health Care Agent Care Teams Continuous Mining Machine Coal Miner Relationship Specialty Start Date End Date Deejay Meza MD [address] [place] [address] Dr [address] [place], [place] PCP - General Internal Medicine 11/07/24
--- OUTSIDE RECORDS SUMMARY | 2025-04-16 16:40 | XMS_ITS | Patient Health Record ---
Author Organization [facility] Address [address] [facility] [place] [address] Care Team Providers Care Food Mixer Name Role Phone Brenden Rosales MD Primary Care Provider Wai Sainz Unavailable [phone] Reason For Referral No Information Medications Medication [...] W/U Status Risk Notes Problem Verruca plantaris (83565901) Verruca Plantaris (078.19) Active confirmed Problem Disorder of joint of ankle and/or foot (225699981) Arthritis - Degenerative (719.97) Active confirmed Problem Acquired deformity of joint of big toe (disorder) (674540066) Hallux Limitus (735.8) Active confirmed Problem Pain in limb (81050785) Pain in Limb (729.5) Active confirmed Plan Of Treatment Pending Test Test Name Order Date [id number] Destruction, -06/06/2013 [id number] Destruction, 05-2808/08/2013 Insurance Providers Payer Name Payer Address Payer Phone Subscriber Number Group Number Insured Name Patient Relationship to Insured Coverage Start Date Coverage End Date [facility] [address] [place] [address] [phone] [id number] PETERSON DRUMMOND Self - patient is the insured 9 Medical (General) History Medical History History ICD Code Back,Hip,and Knee pain Cholesterol Headaches High blood pressure Chicken pox Hypothyroidism Surgical History Surgery Date(Month/Year) section 1987,[address] Dangotes/ 1 Dr Travis garcia surgery back surgery cataract surgery OD cataract surgery OS 2013
== END 2025-04-16 14:02 | disposition home or self-care (01) ==
LOC: HO.HMGAL 13:54
PROVIDERS: PCP Internal Medicine; Visit Provider Registered Nurse Emergency
DX: J30.89 Other allergic rhinitis (principal)
CPT/HCPCS: 95117; 95165

== ENCOUNTER 2025-04-28 10:29 | Outpatient (REF) | payer MEDICARE, BC, SELFPAY ==
[2025-04-28 10:46] LABS: MANUAL DIFF FLAG NO
[2025-04-28 11:27] LABS: Hematocrit 45.9 % (37.0-47.0); Hemoglobin 14.5 g/dl (12.0-16.0); Imm Gran Abs Auto 0.00 X10*3/uL (0.00-0.03); Imm Gran Pct Auto 0.0 % (0.0-0.4); Lymphocytes Absolute Auto 1.9 X10*3/uL (1.2-4.9); Mean Corpuscular HGB Conc 31.6 g/dl (31.0-35.0); Mean Corpuscular Hemoglobin 27.8 pg (27.0-33.0); Mean Corpuscular Volume 87.9 fL (80.0-98.0); NRBC Abs Auto 0.000 X10*3/uL (0.0-0.012); NRBC Pct Auto 0.0 /100WBC (0.0-0.2); Platelet Count 279 X10*3/uL (160-400); Red Blood Count 5.22 X10*6/uL (4.20-5.50); White Blood Count 5.5 X10*3/uL (4.8-10.8)
[2025-04-28 11:56] LABS: Appearance Urine Cloudy; Glucose Urine UA Negative (Negative); PH 5.0 (5.0-9.0); Specific Gravity - Urine 1.020 (1.005-1.025); UMIC TRIGGER UACC YES
[2025-04-28 12:17] LABS: Alanine Aminotransferase 18 U/L (0-31); Albumin Level 4.4 g/dL (3.5-5.0); Alkaline Phosphatase 70 U/L (39-117); Anion Gap 8 (12-20); Aspartate Amino Transferase 19 U/L (5-31); Blood Urea Nitrogen 15 mg/dL (9-16); Calcium 9.7 mg/dL (8.4-10.2); Carbon Dioxide 26 mmol/L (22-29); Chloride 110 mmol/L (96-108); Cholesterol 198 mg/dL (<200); Estimated Glomerular Filt Rate > 60; HDL Cholesterol 64 mg/dL (>40); Potassium 4.2 mmol/L (3.3-5.1); Sodium 140 mmol/L (135-145); Total Protein 7.4 g/dL (6.5-8.0); Triglycerides 100 mg/dL (<150)
[2025-04-28 12:18] LABS: Free T4 (Free Thyroxine) 1.28 ng/dL (0.71-1.85); Thyroid Stimulating Hormone 0.02 uIU/mL (0.32-4.0)
[2025-04-28 13:04] LABS: UACC Culture Trigger YES
[2025-04-28 13:26] LABS: Folate 4.4 ng/mL (> or = 4.0); Vitamin B12 686 pg/mL (200-900)
== END 2025-04-28 10:30 | disposition home or self-care (01) ==
LOC: HO.LAB 10:29
PROVIDERS: PCP Internal Medicine; Visit Provider Internal Medicine
DX: E53.8 Deficiency of other specified B group vitamins (principal); R73.01 Impaired fasting glucose; E78.00 Pure hypercholesterolemia, unspecified; D64.9 Anemia, unspecified; E03.9 Hypothyroidism, unspecified; E55.9 Vitamin D deficiency, unspecified
CPT/HCPCS: 36415; 80053; 80061; 81001; 82306; 82607; 82746; 83036; 84439; 84443; 85025; 87086

== ENCOUNTER 2025-05-12 09:53 | Outpatient (AMB) | payer MEDICARE, BC, SELFPAY ==
[2025-05-12 09:55] VITALS: BP 104/80; PULSE 73; O2SAT 99; BMI 25.3
--- NOTE | 2025-05-12 09:55 | MHC.PC.OV ---
Vital Signs 05/12/25 09:55 Height 5 ft 4 in Weight 147 lb 2 oz BMI 25.3 BP 104/80 Blood Pressure Location Lt brachial Position Sitting Pulse 73 Pulse Source Pulse Oximeter Pulse Oximetry (%) 99 Oxygen Delivery Method Room Air Intake Visit Reasons: Follow Up Handcrew Foreman Required: No Accompanied by: Self / Same As Patient Allergies amoxicillin Allergy (Verified 05/12/25 10:25) Nausea and Vomiting Medication List - Last Reconciled 05/12/25 by Deejay Meza MD apixaban (Eliquis) 5 mg PO BID 90 days cholecalciferol (vitamin D3) 50 mcg PO DAILY 90 days gabapentin 600 mg PO BEDTIME levothyroxine 100 mcg PO DAILY 90 days mecobalamin (vitamin B12) 1,000 mcg sublingual DAILY 90 days pravastatin 40 mg PO DAILY topiramate 25 mg PO BEDTIME Tobacco use date assessed: 05/12/25 Fall risk assessment: 1 Fall in past year Last assessed Fall Risk: 05/12/25 Dental Screening Dental Screen Date: 05/12/25 Did you have a dental visit in the last 12 months?: Yes Did you have a dental problem in the last 6 months where you did not have access to dental care?: No Was dental information given to patient?: Patient has dentist HPI Follow Up HPI Details Patient comes in today for her follow up visit States that she feels okay She denies any headaches or dizziness Denies any chest pains, no increased shortness of breath No nausea/vomiting, no abdominal pain No change in bowel habits noted She had her follow up labs done a couple of weeks ago - to discuss her results [facility] Medical History Pulmonary embolism Vitamin B12 deficiency Arthritis Hypothyroidism PONV (postoperative nausea and vomiting) Celiac disease Overweight (BMI 25.0-29.9) Reactive depression Anxiety Primary osteoarthritis of right knee Insomnia Migraine Dystonia Lumbar degenerative disc disease Impaired fasting glucose Cervical spondylosis Vitamin D deficiency Acquired hypothyroidism Pure hypercholesterolemia Benign essential hypertension Surgical History History of total adrenalectomy History of arthroplasty of right knee (~10/24/20) H/O esophagogastroduodenoscopy H/O colonoscopy History of hand surgery History of lumbar surgery History of arthroplasty of left knee Family History Father Cancer Mother CRD (chronic renal disease) CVD (cardiovascular disease) Myocardial infarction Sister Sarcoma Sister Melanoma Social History Housing: Apartment Alcohol intake: current Alcohol intake frequency: does not drink Patient Tobacco Use Status: Never used Tobacco e-Cigarette/Vaping Use: Never Used Second Hand Smoke Exposure: Yes service: No Current occupational status: employed and retired Current occupational exposures/hazards: No Cognitive needs: No Hearing needs: No Vision needs: No Questionnaire PHQ-9 Over the last 2 weeks, how often have you been bothered by any of the following problems? 1. Little interest or pleasure in doing things: not at all 2. Feeling down, depressed, or hopeless: not at all 3. Trouble falling or staying asleep, or sleeping too much: not at all 4. Feeling tired or having little energy: not at all 5. Poor appetite or overeating: not at all 6. Feeling bad about yourself - or that you are a failure or have let yourself or your family down: not at all 7. Trouble concentrating on things, such as reading the newspaper or watching television: not at all 8. Moving or speaking so slowly that other people could have noticed. Or the opposite - being so fidgety or restless that you have been moving around a lot more than usual: not at all 9. Thoughts that you would be better off or of hurting yourself in some way: not at all Total score: 0 Depression Screening Interpretation: Negative Depression Screening Done: Yes 60534 - PHQ-9 Billing: Yes Source: Developed by Drs. Greg Manriquez, Dorothy Paula, Mckinley Renee and colleagues, with an educational jero from [employer]. Thrive Questionnaire Date Thrive assessed: 05/12/25 I am a: Patient What is your living situation today?: I have a steady place to live Within the past 12 months, did the food you bought not last and you didn't have the money to get more?: Never true Within the past 12 months, did you worry whether your food would run out before you got money to buy more?: Never true Do you have trouble paying for medicines?: No Do you have trouble getting transportation to medical appointments?: No Do you have trouble paying your heating and electricity bill?: No Do you have trouble taking care of your child, family member or friend?: No Do you have trouble with day-to-day activities such as bathing, preparing meals, shopping, managing finances, etc.?: No Are you currently unemployed and looking for a job?: No Are you interested in more education?: No Please select the resources that you would like help with: None Currently or been in a relationship where the following occur: No concerns reported THRIVE Score: 0 AUDIT C Alcohol Use Questionnaire (AUDIT-C) 1. How often do you have a drink containing alcohol?: Never 3. How often do you have six or more drinks on one occasion?: Never Total Score: 0 Score Reviewed/Action Taken: Yes LONG-7 AMB Questionnaire LONG-7 Date LONG - 7 assessed: 05/12/25 Feeling nervous, anxious, or on edge: 0 = Not at all Not being able to stop or control worryin = Not at all Worrying too much about different things: 0 = Not at all Trouble relaxin = Not at all Being so restless that it is hard to sit still: 0 = Not at all Becoming easily annoyed or irritable: 0 = Not at all Feeling afraid as if something awful might happen: 0 = Not at all Total LONG-7 score (0-4 normal; 5-9 mild; 10-14 moderate; 15-21 severe): 0 Source: Developed by Drs. Greg Manriquez, Dorothy Paula, Mckinley Renee and colleagues, with an educational jero from [employer]. Review of Systems Const Denies chills, Reports difficulty sleeping (better lately), Denies fatigue, Denies fever(s) and Denies headache(s) ENT Denies dysphagia, Denies dizziness, Denies otalgia, Denies headache(s), Reports neck pain (chronic - has right-sided cervical dystonia), Denies odynophagia and Denies sore throat Card Denies chest pain, Denies palpitations and Denies dyspnea Resp Denies chest congestion, Denies cough and Denies dyspnea GI Denies abdominal pain, Denies constipation, Denies dysphagia, Denies heartburn, Denies diarrhea, Denies nausea, Denies odynophagia and Denies vomiting Denies difficulty voiding, Denies nocturia, Denies dysuria and Denies urinary urgency Musc Details: (+) recurrent pain over the right arm and right leg, often with increased activity or exertion Reports back pain (on and off over the lower back), Reports neck pain (chronic - has right-sided cervical dystonia) and Reports radiating pain into limb (into the right arm at times) Skin/Breast Denies rash Neuro Denies dizziness and Denies headache(s) Endo Denies fatigue and Denies palpitations Physical exam (Primary Care) Vital Signs: Last Vital Signs Pulse 73 05/12/25 09:55 BP 104/80 05/12/25 09:55 Pulse Ox 99 05/12/25 09:55 Oxygen Delivery Method Room Air 05/12/25 09:55 BMI result Body Mass Index 25.3 Tobacco/Smoking Status: Tobacco use Status Tobacco use date assessed 05/12/25 05/12/25 09:58 Patient Tobacco Use Status Never used Tobacco 05/12/25 09:58 e-Cigarette/Vaping Use Never Used 05/12/25 09:58 PHQ-9: PHQ-9 Score PHQ-9: Total score 0 05/12/25 10:30 Depression Screening Interpretation: Negative Thrive Assessment: Date of Thrive Assessment Date Thrive assessed 05/12/25 05/12/25 10:03 Currently or been in a relationship where the following occur: No concerns reported Const General: no acute distress and alert HENMT Ears: TM's normal bilaterally and EAC's normal Throat: Yes posterior oropharynx normal and Yes tonsils normal (no TP congestion noted) Neck Neck: No lymphadenopathy and Yes tender Thyroid: Thyroid normal Resp Auscultation: clear to auscultation bilaterally, no rales and no wheezes Cardio Rate: regular rate Rhythm: regular rhythm Heart sounds: no murmurs GI Palpation (GI): Soft to palpation and nontender Auscultation: normal bowel sounds General: Yes no CVA tenderness Back/Spine/Pelvis Back: no CVA tenderness Cervical Spine: cervical muscular tenderness (more on the right side) and Cervical spine tenderness (mild) Thoracic/Lumbar Spine: lumbar spinal tenderness (mild) Skin Rashes: no rashes Extrem General: Yes no clubbing, cyanosis or edema Right lower extremity: knee Details: tenderness; no swelling Results Reviewed Results Reviewed: Laboratory Tests 04/28/25 04/28/25 10:36 10:44 WBC 5.5 Hgb 14.5 Hct 45.9 Plt Count 279 Sodium 140 Potassium 4.2 Creatinine 0.82 Estimated GFR > 60 Fasting Glucose 72 Hemoglobin A1c % 5.0 Calcium 9.7 D AST 19 ALT 18 Triglycerides 100 Cholesterol 198 LDL Cholesterol, Calc 114 H HDL Cholesterol 64 Vitamin B12 686 25-OH Vitamin D Total 28.6 L TSH 0.02 L Free T4 1.28 Ur Specific [place] 1.020 Urine Protein Negative Urine Glucose (UA) Negative Urine Blood Small (1+) H Urine Nitrite Negative Ur Leukocyte Esterase Small (1+) H Coding Level of Care Code Est Pt Level 4 (68312) Add On Problem Visit Only Diagnoses Pheochromocytoma of left adrenal gland D35.02 Laterality: left Benign essential hypertension I10 Pure hypercholesterolemia E78.00 Acquired hypothyroidism E03.9 Impaired fasting glucose R73.01 Migraine without status migrainosus, not intractable, unspecified migraine type G43.909 Migraine type: unspecified Status migrainosus presence: without status migrainosus Intractability: not intractable Dystonia G24.9 Cervical spondylosis M47.812 Degeneration of intervertebral disc of lumbar region with discogenic back pain M51.360 Disc-related pain type: discogenic back pain only Vitamin D deficiency E55.9 Vitamin B12 deficiency E53.8 Neuropathy G62.9 Primary osteoarthritis of right knee M17.11 Insomnia, unspecified type G47.00 Insomnia type: unspecified Anxiety F41.9 Reactive depression F32.9 Additional Codes PHQ-9 - 64132 - PHQ-9 Billing: Yes ([id number]) Assessment & Plan Assessment & Plan (1) Pheochromocytoma: Code(s): D35.00 - Benign neoplasm of unspecified adrenal gland Category: Medical Qualifiers: Laterality: left Qualified Code(s): D35.02 - Benign neoplasm of left adrenal gland Plan: S/P left adrenalectomy by Dr. Krista Newman at [facility] a few months ago on 01/28/2025 Patient feels that her surgery went well overall Her blood pressure remains well controlled today and she currently no longer need to take any antihypertensive Rx She is reminded to continue monitoring her blood pressure regularly for surveillance (2) Benign essential hypertension: Code(s): I10 - Essential (primary) hypertension Category: Medical Plan: Reinforced low sodium diet - goal is systolic BP of 120 mm or less She was on Doxazosin 1 mg BID previously but currently no longer requires any antihypertensive Rx She is reminded to continue monitoring her blood pressure regularly (3) Pure hypercholesterolemia: Code(s): E78.00 - Pure hypercholesterolemia, unspecified Category: Medical Plan: Results of her labs done a couple of weeks ago reviewed and discussed with patient Reinforced low cholesterol diet Continue Pravastatin 40 mg QD Will recheck her labs and fasting lipids in 4 months for follow up (4) Acquired hypothyroidism: Code(s): E03.9 - Hypothyroidism, unspecified Category: Medical Plan: Her free T4 level is normal on her recent labs and patient is clinically euthyroid; her TSH remains suppressed Continue Levothyroxine 100 mcg QD Will recheck her TFTs in 4 months for follow up; will also check her free T3 level again in a few months for further evaluation (5) Impaired fasting glucose: Code(s): R73.01 - Impaired fasting glucose Category: Medical Plan: Her FBS was high at 130 mg/dl on her labs done a few months ago but normal at 72 mg/dl when recently rechecked a couple of weeks ago Her HgbA1c was normal at 5.0% on her recent labs Her HgbA1c has been normal at 5.7%, 5,4%, 5.3% and 5.6% when previously checked Reinforced low calorie diet/exercise as tolerated (6) Migraine: Comment: [place] [facility] [place]: WNL. Code(s): G43.909 - Migraine, unspecified, not intractable, without status migrainosus Category: Medical Qualifiers: Migraine type: unspecified Status migrainosus presence: without status migrainosus Intractability: not intractable Qualified Code(s): G43.909 - Migraine, unspecified, not intractable, without status migrainosus Plan: Stable/controlled on prophylactic Rx Continue Topiramate 25 mg Q HS Continue Sumatriptan 50 mg PRN for symptomatic relief of her headaches Reinforced avoidance of all potential migraine triggers Follow up with neurology as scheduled (7) Dystonia: Comment: NCV/EMG LE Chronic right lower lumbar radiculopathy. 01/12/22. XR C spine [place] [facility] [place]: DJD, disc space narrowing, ant subluxation of C3 and C4, about 3mm NCV/EMG LE 10/31/17 Moderately severe right peroneal neuropathy. Mild to moderate bilateral distal tibial neuropathy across the Tarsal tunnel. NCV/EMG LE 10/16/12 NO SIGNIFICANT ABNORMALITY NOTED. Code(s): G24.9 - Dystonia, unspecified Category: Medical Plan: Continue Gabapentin 300 mg 2 capsules (600 mg) daily at bedtime Follow up with neurology as scheduled (8) Cervical spondylosis: Code(s): M47.812 - Spondylosis without myelopathy or radiculopathy, cervical region Category: Medical Plan: Cervical spine x-rays done back on 02/12/2019 showed (+) multilevel degenerative changes with a mild 3 mm anterior subluxation of C3 with respect to C4 that is slightly increased from previous C-spine MRI done in 03/2012 She's had RFA x 2 with pain management over the past couple of years - she reported (+) significant relief of her neck symptoms initially but her neck symptoms have since regressed EMG & NCV done back in March 2022 revealed findings consistent with mild chronic right C5-C6 radiculopathy; nerve conduction studies came back completely normal She had C6-C7 fluoroscopy-guided parasagittal epidural steroid injection x 2 last year with (+) symptomatic relief Follow up with Pain Management as scheduled (9) Lumbar degenerative disc disease: Comment: S/P lumbar decompression [place] [address] Zapata, with (+) significant relief of her acute lower back symptoms Code(s): M51.36 - Other intervertebral disc degeneration, lumbar region Category: Medical Qualifiers: Disc-related pain type: discogenic back pain only Qualified Code(s): M51.360 - Other intervertebral disc degeneration, lumbar region with discogenic back pain only Plan: Reinforced activity and weight-lifting restrictions (10) Vitamin D deficiency: Code(s): E55.9 - Vitamin D deficiency, unspecified Category: Medical Plan: Continue Vitamin D3 2000 units QD She is also on a combined Vitamin D and Calcium tablets, which contains Vitamin D of around 400 to 600 units per tablet (11) Vitamin B12 deficiency: Code(s): E53.8 - Deficiency of other specified B group vitamins Category: Medical Plan: Her Vitamin B 12 level remains normal on her recent labs but has been dropping off consistently over the past few months Continue Vitamin B12 tablets 1000 mcg QD Will recheck her Vitamin B12 level in 4 months for follow up (12) Neuropathy: Comment: EMG & NCV done on 10/31/2017 revealed (+) moderately severe right peroneal neuropathy and 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 Code(s): G62.9 - Polyneuropathy, unspecified Category: Medical Plan: Patient still has recurrent right leg pain/symptoms but states that Gabapentin has been helping with her symptoms Follow up with neurology as scheduled (13) Primary osteoarthritis of right knee: Code(s): M17.11 - Unilateral primary osteoarthritis, right knee Category: Medical Plan: S/P right knee arthroplasty in October 2020 Follow up with orthopedics ([facility]) as scheduled (14) Insomnia: Code(s): G47.00 - Insomnia, unspecified Category: Medical Qualifiers: Insomnia type: unspecified Qualified Code(s): G47.00 - Insomnia, unspecified Plan: Sleep hygiene reinforced States that Gabapentin at bedtime was helping previously but has not helped at all recently Reports that she is still waking up at least 2 to 3 times a night at times for no particular reason Continue OTC Melatonin Q HS PRN (15) Anxiety: Code(s): F41.9 - Anxiety disorder, unspecified Category: Medical Plan: Patient feels that she is still doing well with her anxiety and no longer has to take any Hydroxyzine She used to get counseling with [facility] but states that she has not needed to do so in a while now (16) Reactive depression: Code(s): F32.9 - Major depressive disorder, single episode, unspecified Category: Medical Plan: Improved - states that she is no longer taking Mirtazapine and feels that she is doing well off her meds so far Plan Follow up in 4 months Orders: Orders Complete Blood Count Auto Diff 4 Months D64.9 - Anemia, unspecified Comprehensive [place]. Panel Fast 4 Months E78.00 - Pure hypercholesterolemia, unspecified Free T4 (Free Thyroxine) 4 Months E03.9 - Hypothyroidism, unspecified Thyroid Stimulating Hormone 4 Months E03.9 - Hypothyroidism, unspecified Lipid Panel 4 Months E78.00 - Pure hypercholesterolemia, unspecified Triiodothyronine T3 Free 4 Months R79.89 - Other specified abnormal findings of blood chemistry
--- OUTSIDE RECORDS SUMMARY | 2025-05-12 10:41 | XMS_ITS | Clinical Summary ---
Author Organization [facility] Address [address] [place] [address] Phone Care Team Providers Care Mold Repairer Name Role Phone Deejay Meza MD Primary [...] tabletIndications: Postoperative pain,Benign pheochromocytoma, left,H/O partial adrenalectomy ([facility] V24) Take 1 tablet (5 mg total) [...] deep vein thrombosis (DVT) of both lower e xtremities 2024 Bilateral pulmonary embolism 10/08/2024 Encounters Date Type Department Care Team Description 02/11/2025 9:45 AM EDT Office Visit General Surgery [facility] [address] [place] [id number] Krista Newman MD Pheochromocytoma of left adrenal gland (Primary Dx) 02/10/2025 10:15 AM EDT Office Visit [facility] Hematology Oncology [address] [place] [id number] Chandrakant Odell MD Acute deep vein thrombosis (DVT) of other specified vein of both lower extremities ([facility] V24, [facility] V28) (Primary Dx); Bilateral pulmonary embolism ([facility] V24, [facility] V28); Benign pheochromocytoma, left from Last 3 Months Surgical History Surgery Date Site/Laterality Comments TOTAL KNEE ARTHROPLASTY Bilateral SECTION, CLASSIC x2 BACK SURGERY lumbar Medical History Medical History Date Comments HTN (hypertension) Hypothyroidism Hyperlipidemia Dystonia rest Migraines PONV (postoperative nausea and vomiting) Delayed emergence from general anesthesia Pulmonary emboli ([facility] V24, [facility] V28) september 2024 Adrenal mass ([facility] V24) Social History Tobacco Use Types Packs/Day [...] on file Sexual Orientation Not on file Last Filed Vital Signs Vital Sign Reading [...] [facility] Hematology Oncology [address] [place] [address] Chandrakant Vides MD [address] [place] [address] Health Maintenance Due Date Last [...] this topic Medical Devices Implanted Type Area Antique Clocks Repairer Device Identifier Shelf Expiration Date Model / Serial / Lot Joints Knee Joints Knee Bilateral: Knee Spinal Hardware Spinal Hardware N/A: Spine Lumbar Insurance MEDICARE [facility] Advance Directives Documents on File Type Date Recorded Patient Condenser Tube Tender Expl anation Advance Directives and Living Will [...] Agents on File Name Relationship Healthcare Agent [employer] Communication Peterson Drummond First Alternate Health Care Agent Marya Ferreira Daughter Second Alternate Health Care Agent Care Teams Mold Repairer Relationship Specialty Start Date End Date Deejay Meza MD [address] [place] [address] [address] [place] PCP - General Internal Medicine 11/07/24
--- OUTSIDE RECORDS SUMMARY | 2025-05-12 10:41 | XMS_ITS | Patient Health Record ---
[facility] Organization [facility] Address [address] [place] [address] Care Team Providers Care Sales Advisory Manager Name Role Phone Brenden Rosales MD Primary Care Provider Wai Sainz Unavailable [phone] Reason For Referral No Information Medications Medication [...] W/U Status Risk Notes Problem Verruca plantaris ([id number]) Verruca Plantaris (078.19) Active confirmed Problem Disorder of joint of ankle and/or foot ([id number]) Arthritis - Degenerative (719.97) Active confirmed Problem Acquired deformity of joint of big toe (disorder) (885576060) Hallux Limitus (735.8) Active confirmed Problem Pain in limb (24706310) Pain in Limb (729.5) Active confirmed Plan Of Treatment Pending Test Test Name Order Date [id number] Destruction, -06/06/2013 [id number] Destruction, 05-2808/08/2013 Insurance Providers Payer Name Payer Address Payer Phone Subscriber Number Group Number Insured Name Patient Relationship to Insured Coverage Start Date Coverage End Date [facility] [address] [place] [address] [id number] PETERSON DRUMMOND Self - patient is the insured 9 Medical (General) History Medical History History ICD Code Back,Hip,and Knee pain Cholesterol Headaches High blood pressure Chicken pox Hypothyroidism Surgical History Surgery Date(Month/Year) section 1987,[address] Dangotes/ 1 Dr Travis garcia surgery back surgery cataract surgery OD cataract surgery OS 2013
== END 2025-05-12 10:36 | disposition home or self-care (01) ==
LOC: HO.HMCH 09:54
PROVIDERS: PCP Internal Medicine; Visit Provider Internal Medicine
DX: D35.02 Benign neoplasm of left adrenal gland (principal); I10 Essential (primary) hypertension; E78.00 Pure hypercholesterolemia, unspecified; E03.9 Hypothyroidism, unspecified; R73.01 Impaired fasting glucose; G43.909 Migraine, unspecified, not intractable, without status migrainosus; G24.9 Dystonia, unspecified; M47.812 Spondylosis without myelopathy or radiculopathy, cervical region; M51.360 Other intervertebral disc degeneration, lumbar region with discogenic back pain only; E55.9 Vitamin D deficiency, unspecified; E53.8 Deficiency of other specified B group vitamins; G62.9 Polyneuropathy, unspecified; M17.11 Unilateral primary osteoarthritis, right knee; G47.00 Insomnia, unspecified; F41.9 Anxiety disorder, unspecified; F32.9 Major depressive disorder, single episode, unspecified

== ENCOUNTER → 2025-05-12 09:53 | Outpatient (BNVA) | payer MEDICARE, BC, SELFPAY | PROVIDERS: PCP Internal Medicine; Visit Provider Internal Medicine | DX: Z09 Encounter for follow-up examination after completed treatment for conditions other than malignant neoplasm (principal); Z86.39 Personal history of other endocrine, nutritional and metabolic disease; I10 Essential (primary) hypertension; E78.00 Pure hypercholesterolemia, unspecified; E03.9 Hypothyroidism, unspecified; R73.01 Impaired fasting glucose; G43.909 Migraine, unspecified, not intractable, without status migrainosus; G24.9 Dystonia, unspecified; G62.9 Polyneuropathy, unspecified; M47.812 Spondylosis without myelopathy or radiculopathy, cervical region; M54.2 Cervicalgia; M51.360 Other intervertebral disc degeneration, lumbar region with discogenic back pain only; E55.9 Vitamin D deficiency, unspecified; E53.8 Deficiency of other specified B group vitamins; M17.11 Unilateral primary osteoarthritis, right knee; G47.00 Insomnia, unspecified; F41.9 Anxiety disorder, unspecified; F32.9 Major depressive disorder, single episode, unspecified; Z13.31 Encounter for screening for depression; Z79.890 Hormone replacement therapy; Z79.899 Other long term (current) drug therapy; Z98.890 Other specified postprocedural states | CPT/HCPCS: 96127; 99212 ==